=== PATIENT | female | born 1940 | race Caucasian/White ===

== ENCOUNTER 2021-10-19 08:28 | Outpatient (CLI) | payer MEDICARE, SELFPAY ==
[2021-10-19 08:56] LABS: Basophils Absolute Auto 0.1 K/mm3 (0.0-0.1); Basophils Percent Auto 0.6 % (0.2-1.2); Eosinophils Absolute Auto 0.2 K/mm3 (0-0.3); Eosinophils Percent Auto 1.9 % (0-4.4); Hematocrit 41.2 % (37.0-47.0); Hemoglobin 13.5 g/dL (12.0-15.0); Immature Granulocyte Absolute 0.02 K/mm3 (0.00-0.031); Immature Granulocyte Percent A 0.3 % (0-0.5); Lymphocytes Absolute Auto 1.53 K/mm3 (0.9-3.2); Lymphocytes Percent Auto 19.7 % (18.3-44.2); Mean Corpuscular HGB Conc 32.8 g/dl (32-36); Mean Corpuscular Volume 91.6 fl (80-100); Mean Platelet Volume 9.8 fl (7.4-10.4); Monocytes Absolute Auto 0.7 K/mm3 (0.1-0.6); Monocytes Percent Auto 8.9 % (2.6-8.5); Neutrophils Absolute Auto 5.3 K/mm3 (1.3-6.7); Neutrophils Percent Auto 68.6 % (45.5-73.1); Platelet Count Result 171 k/mm3 (150-375); Red Cell Distribution Width 14.7 % (11.5-14.5); White Blood Count 7.8 K/mm3 (4.5-10.0)
[2021-10-19 09:07] LABS: Alanine Aminotransferase 20 U/L (4-35); Albumin Level 4.2 g/dL (3.5-5.1); Alkaline Phosphatase 61 U/L (38-126); Anion Gap 8 mmol/L (8-16); Aspartate Amino Transferase 34 U/L (14-36); Bilirubin,Total 0.9 mg/dL (0.2-1.3); Blood Urea Nitrogen 17 mg/dL (7-17); Calcium 9.7 mg/dL (8.4-10.2); Carbon Dioxide 32 mmol/L (22-30); Chloride 97 mmol/L (98-107); Cholesterol 149 mg/dL (0-200); Estimated Glomerular Filt Rate > 60; Glucose 99 mg/dL (65-110); HDL Direct 61 mg/dL; Potassium 3.7 mmol/L (3.4-5.0); Sodium 137 mmol/L (137-145); Triglycerides 68 mg/dL (<150)
[2021-10-19 09:19] LABS: LDL Cholesterol Direct 62 mg/dL
[2021-10-19 09:26] LABS: Free T4 Free Thyroxine 1.42 ng/mL (0.78-2.19)
[2021-10-19 09:39] LABS: Total Triiodothyronine (T3) 0.95 NG/ML (0.97-1.69)
[2021-10-23 08:14] LABS: Vitamin D 1,25 (OH)2 Total 58 pg/mL (18-72); Vitamin D2 1,25 (OH)2 41 pg/mL; Vitamin D3 1,25 (OH)2 17 pg/mL
== END 2021-10-19 08:29 | disposition home or self-care (01) ==
LOC: ANHLAB 08:30
PROVIDERS: PCP Family Medicine; Visit Provider Family Medicine
DX: E55.9 Vitamin D deficiency, unspecified (principal); E03.9 Hypothyroidism, unspecified; I10 Essential (primary) hypertension; E78.2 Mixed hyperlipidemia
CPT/HCPCS: 36415; 80053; 80061; 82652; 84439; 84443; 84480; 85025

== ENCOUNTER 2022-10-12 07:35 | Outpatient (CLI) | payer MEDICARE, SELFPAY ==
[2022-10-12 08:49] LABS: Basophils Percent Auto 0.5 % (0.2-1.2); Eosinophils Absolute Auto 0.1 K/mm3 (0-0.3); Eosinophils Percent Auto 1.7 % (0-4.4); Hematocrit 41.2 % (37.0-47.0); Hemoglobin 13.3 g/dL (12.0-15.0); Immature Granulocyte Absolute 0.02 K/mm3 (0.00-0.031); Immature Granulocyte Percent A 0.2 % (0-0.5); Lymphocytes Percent Auto 20.4 % (18.3-44.2); Mean Corpuscular HGB Conc 32.3 g/dl (32-36); Mean Corpuscular Hemoglobin 28.7 pg (26-34); Mean Corpuscular Volume 88.8 fl (80-100); Monocytes Absolute Auto 0.7 K/mm3 (0.1-0.6); Monocytes Percent Auto 8.1 % (2.6-8.5); Neutrophils Absolute Auto 5.8 K/mm3 (1.3-6.7); Neutrophils Percent Auto 69.1 % (45.5-73.1); Platelet Count Result 266 k/mm3 (150-375); Red Blood Count 4.64 M/mm3 (4.2-5.4); Red Cell Distribution Width 14.6 % (11.5-14.5); White Blood Count 8.3 K/mm3 (4.5-10.0)
[2022-10-12 09:10] LABS: Alanine Aminotransferase 27 U/L (6-35); Albumin Level 4.2 g/dL (3.5-5.1); Alkaline Phosphatase 69 U/L (38-126); Anion Gap 4 mmol/L (8-16); Aspartate Amino Transferase 37 U/L (14-36); Bilirubin,Total 0.8 mg/dL (0.2-1.3); Blood Urea Nitrogen 14 mg/dL (7-17); Calcium 9.1 mg/dL (8.4-10.2); Carbon Dioxide 32 mmol/L (22-30); Chloride 97 mmol/L (98-107); Estimated Glomerular Filt Rate > 60; Glucose 92 mg/dL (65-110); Potassium 3.7 mmol/L (3.4-5.0); Sodium 133 mmol/L (137-145)
== END 2022-10-12 07:36 | disposition home or self-care (01) ==
PROVIDERS: PCP Family Medicine; Visit Provider Family Medicine
DX: E03.9 Hypothyroidism, unspecified (principal); I10 Essential (primary) hypertension; R60.0 Localized edema
CPT/HCPCS: 36415; 80053; 84443; 85025

== ENCOUNTER 2022-10-27 18:26 | Inpatient (IN) | payer MEDICARE, SELFPAY ==
[2022-10-27] VITALS (21 sets, daily range): BP systolic 137–198; BP diastolic 63–157; PULSE 97–106; RESP 16; TEMP 36.8–37.2; O2SAT 77–100
--- NOTE | ~2022-10-27 | US_ITS ---
EXAMINATION: US renal BI DATE: 10/28/2022 14:11 INDICATION: Urinary retention. TECHNIQUE: Multiple ultrasound grayscale images of the kidneys were obtained. COMPARISON: CT abdomen and pelvis 10/27/2022 FINDINGS: The right kidney measures 9.3 x 4.4 x 5.0 cm. The left kidney measures 9.7 x 5.1 x 5.6 cm. The kidney s demonstrate normal parenchymal echogenicity. There is a 2.0 cm cyst in right kidney. There is no hy dronephrosis. The bladder is decompressed by a Solis catheter. IMPRESSION: 1. Normal kidney sizes. No hydronephrosis. Reviewed, dictated and finalized at location A. [employer]
--- NOTE | ~2022-10-27 | CT_ITS ---
EXAMINATION: CT abdomen pelvis w con DATE: 10/27/2022 20:05 INDICATION: lower abdominal pain, fever TECHNIQUE: Computed tomography (CT) of the abdomen and pelvis was performed with 100 mL Omnipaque-350 intravenous contrast. Automated exposure control and iterative reconstruction technique were employe d. The dose-length product was 255.65 mGy-cm. COMPARISON: None. FINDINGS: Lower thorax: Scattered bilateral tree-in-bud opacities. Aortic valve, mitral, and coronary artery ca lcifications Liver: Normal. Biliary/Gallbladder: Gallbladder is normal. No bile duct dilation. Pancreas: No mass or duct dilation. Spleen: Normal. Adrenals:No mass. Kidneys: Simple right lower pole cyst. Mild bilateral ureterectasis and urothelial enhancement. Nonob structing bilateral calculi. Uniform cortical enhancement. Mild bilateral perinephric stranding. GI tract: Distal esophageal and gastric wall edema. No small or large bowel dilation. Normal appendix . Mesentery/Peritoneum: No ascites, mass, or free air. Retroperitoneum: No mass. Atherosclerotic abdominal aortic and/or arterial calcifications. Pelvis: Urinary bladder wall thickening, hyperemia, and surrounding inflammatory change. 6 mm calcifi cation in the bladder lumen, adjacent to the right UVJ. Soft Tissues: Uncomplicated small fat-containing umbilical hernia. Bones: No acute osseous finding. IMPRESSION: Esophagitis/gastritis. Cystitis, likely with bilateral ascending infection. 6 mm calcification in the urinary bladder may represent a bladder calculus or recently passed nephrolith. Reviewed, dictated and finalized at location K. [facility] IMPRESSION: Esophagitis/gastritis. Cystitis, likely with bilateral ascending infection. 6 m m calcification in the urinary bladder may represent a bladder calculus or rece ntly passed nephrolith.
--- NOTE | 2022-10-27 18:55 | ED.FEMALEGU ---
HPI - Female Genitourinary General Chief complaint: Urogenital-Female <Dunia Magana PA-C - Last Filed: 10/27/22 22:03> Stated complaint: decreased urinary output <Dunia Magana PA-C - Last Filed: 10/27/22 22:03> Time Seen by Provider: 10/27/22 18:41 <Dunia Magana PA-C - Last Filed: 10/27/22 22:03> History of Present Illness HPI Narrative: Patient is a 82-year-old female here for evaluation of urinary retention today. Patient states that today she has been unable to urinate which is unusual for her. Typically has overactive bladder but does not take any medicines for this. She feels the urge to go in addition to some suprapubic fullness. Yesterday she believes she had some dysuria. Denies any acute back pain, chills, nausea, vomiting, systemic symptoms. <Dunia Magana PA-C - Last Filed: 10/27/22 22:03> Related Data Allergies/Adverse reactions: Allergies Allergy/AdvReac Type Severity Reaction Status Date / Time No Known Allergies Allergy Unknown Verified 10/27/22 18:39 <Dunia Magana PA-C - Last Filed: 10/27/22 22:03> Review of Systems Review of Systems: Gen: Denies fevers or chills Eyes: Denies eye pain or visual change ENT: Denies congestion Respiratory: Denies shortness of breath or cough CV: Denies chest pain or palpitations GI: Denies abdominal pain nausea, emesis or diarrhea reports suprapubic fullness and retention Musculoskeletal: Denies back pain or muscle pain Neuro: Denies numbness, tingling, weakness or focal weakness Skin: Denies rash Except as documented, all other systems reviewed and negative <Dunia Magana PA-C - Last Filed: 10/27/22 22:03> PMFSH Past Medical History Medical History: Medical History Age related osteoporosis Aortic stenosis, mild Arthritis Asymptomatic stenosis of both vertebral arteries Benign essential HTN Bilateral carotid artery stenosis Breast CA Carotid artery stenosis Colon cancer screening CVA, old, facial weakness Essential (primary) hypertension 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 abnormality Glaucoma Hyperlipidemia Hyperlipidemia type III Hypothyroidism (acquired) Hypothyroidism, unspecified Lymphedema, not elsewhere classified Macular degeneration Personal history of malignant neoplasm of breast Postmenopausal Presbycusis of both ears Vitamin D deficiency <Dunia Magana PA-C - Last Filed: 10/27/22 22:03> Surgical History Surgical History: Surgical History H/O left mastectomy Status post left mastectomy <Dunia Magana PA-C - Last Filed: 10/27/22 22:03> Family History Family History: Family History Other Hypertension <Dunia Magana PA-C - Last Filed: 10/27/22 22:03> Social History Social History: Social History (Updated 09/21/22 @ 07:45 by Katelynn Pierce) Social History: Smoking status: Never smoker Second hand tobacco smoke exposure: No Alcohol intake: never Substance use: never Substance use type: does not use Living arrangements: alone Occupation/Education: retired Gender identity (if verbalized by the patient): Female Sexual Orientation (if Verbalized by the Patient): Straight or Heterosexual <Dunia Magana PA-C - Last Filed: 10/27/22 22:03> Exam Narrative: APPEARANCE: Well appearing, no pain in distress, well-nourished. Head: Normocephalic and atraumatic. EYES: PERRLA/EOMI, conjunctivae clear NOSE: No nasal drainage EARS: External ear normal in appearance THROAT: Oropharynx is clear. Mucous membranes are moist. NECK: Supple. No adenopathy, no masses. RESPIRATORY: Airway patent, respirations nonlabored. Clear to auscultation bilaterally, no rales, rhonchi, wheezing. CARDIOVASCULAR: Re
[2022-10-27 19:31] LABS: Appearance Urine Clear (Clear); Bilirubin Urine Negative (Negative); Blood Urine 1+ (Negative); Color Urine Yellow (Yellow); Glucose Urine UA Negative (Negative); Ketones Urine Negative (Negative); Leukocyte Esterase Ur Negative LEU/UL (Negative); Nitrate Urine Negative (Negative); Protein Urine Negative (Negative); Specific Grav Ur 1.015 (1.001-1.035); Urobilinogen Urine 0.2 mg/dL (<2.0)
[2022-10-27 19:42] LABS: WBC Urine 0-3 /hpf
[2022-10-27 19:42] LABS: Basophils Percent Auto 0.4 % (0.2-1.2); Eosinophils Absolute Auto 0.1 K/mm3 (0-0.3); Eosinophils Percent Auto 1.1 % (0-4.4); Hematocrit 41.8 % (37.0-47.0); Hemoglobin 13.7 g/dL (12.0-15.0); Immature Granulocyte Absolute 0.07 K/mm3 (0.00-0.031); Immature Granulocyte Percent A 0.7 % (0-0.5); Lymphocytes Absolute Auto 1.77 K/mm3 (0.9-3.2); Lymphocytes Percent Auto 16.8 % (18.3-44.2); Mean Corpuscular HGB Conc 32.8 g/dl (32-36); Mean Corpuscular Hemoglobin 28.7 pg (26-34); Mean Corpuscular Volume 87.6 fl (80-100); Mean Platelet Volume 10.5 fl (7.4-10.4); Monocytes Absolute Auto 0.8 K/mm3 (0.1-0.6); Monocytes Percent Auto 7.9 % (2.6-8.5); Neutrophils Absolute Auto 7.7 K/mm3 (1.3-6.7); Neutrophils Percent Auto 73.1 % (45.5-73.1); Platelet Count Result 176 k/mm3 (150-375); Red Blood Count 4.77 M/mm3 (4.2-5.4); White Blood Count 10.6 K/mm3 (4.5-10.0)
[2022-10-27 19:43] LABS: Add Urine Microscopic? YES
[2022-10-27 19:51] LABS: Alanine Aminotransferase 25 U/L (6-35); Albumin Level 4.6 g/dL (3.5-5.1); Alkaline Phosphatase 79 U/L (38-126); Anion Gap 6 mmol/L (8-16); Aspartate Amino Transferase 35 U/L (14-36); Bilirubin,Total 0.5 mg/dL (0.2-1.3); Blood Urea Nitrogen 12 mg/dL (7-17); Calcium 9.5 mg/dL (8.4-10.2); Carbon Dioxide 30 mmol/L (22-30); Chloride 96 mmol/L (98-107); Estimated CRCL calculation 51 ml/min; Estimated Glomerular Filt Rate > 60; Glucose 118 mg/dL (65-110); Potassium 3.5 mmol/L (3.4-5.0); Sodium 132 mmol/L (137-145)
--- NOTE | 2022-10-27 20:35 | PM.IMHP ---
H&P: HPI History of Present Illness Date/Time: 10/27/22 20:35 Chief Complaint: burning with urination Narrative: this is an 82-year-old female with past medical history significant for osteoporosis, hypertension, dyslipidemia, macular degeneration, hypothyroidism, aortic stenosis. patient was brought to the emergency room for evaluation due to suprapubic tenderness, urgency, frequency, decreased urine output. in emergency room patient was found to have urinary retention and had 1200 cc out by straight catheterization. Patient denies any fevers, rigors, chills, nausea, vomiting, diarrhea. Feels constant urge. Preliminary workup was significant for a urinalysis showed numerous rbc's present, patient tested negative for influenza type A, type B and COVID-19 CT of abdomen and pelvis was reported as: FINDINGS: Lower thorax: Scattered bilateral tree-in-bud opacities. Aortic valve, mitral, and coronary artery calcifications Liver: Normal.? Biliary/Gallbladder: Gallbladder is normal. No bile duct dilation. Pancreas: No mass or duct dilation. Spleen: Normal. Adrenals:No mass. Kidneys: Simple right lower pole cyst. Mild bilateral ureterectasis and urothelial enhancement. Nonobstructing bilateral calculi. Uniform cortical enhancement. Mild bilateral perinephric stranding. GI tract: Distal esophageal and gastric wall edema. No small or large bowel dilation. Normal appendix. Mesentery/Peritoneum: No ascites, mass, or free air. Retroperitoneum: No mass. Atherosclerotic abdominal aortic and/or arterial calcifications. Pelvis: Urinary bladder wall thickening, hyperemia, and surrounding inflammatory change. 6 mm calcification in the bladder lumen, adjacent to the right UVJ. Soft Tissues: Uncomplicated small fat-containing umbilical hernia. Bones:? No acute osseous finding. IMPRESSION: Esophagitis/gastritis. Cystitis, likely with bilateral ascending infection. 6 mm calcification in the urinary bladder may represent a bladder calculus or recently passed nephrolith. Review of Systems Review of Systems: urinary frequency, urgency, suprapubic tenderness. Constitutional: Constitutional: Denies chills, Denies fever(s), Denies frequent falls, Denies night sweats and Denies poor appetite Eyes: Eyes: Denies change in vision ENT: Denies dysphagia, Denies vertigo, Denies dizziness and Denies odynophagia Cardiovascular: Cardiovascular: Denies chest pain Respiratory: Respiratory: Denies chest congestion and Denies cough Gastrointestinal: Gastrointestinal: Reports abdominal pain ( Suprapubic tenderness), Denies dyspepsia, Denies heartburn, Denies diarrhea, Denies nausea and Denies vomiting Genitourinary: Genitourinary: Reports dysuria, Reports urinary hesitancy, Reports urinary urgency and Reports other ( suprapubic tenderness) Musculoskeletal: Musculoskeletal: Denies arthralgias and Denies joint swelling Integumentary/Breasts: Skin/Breast: Denies rash Neurologic: Denies focal weakness and Denies Sensory deficit (Neuro) Psychiatric: Psychiatric: Reports no additional psychiatric complaints and Reports as per HPI Endocrine: Endocrine: Denies cold intolerance, Denies flushing, Denies heat intolerance, Denies polyphagia, Denies polydipsia and Denies palpitations Hematologic/Lymphatic: Hematologic/Lymphatic: Reports no additional hematologic/lymphatic complaints and Reports as per HPI Allergic/Immunologic: Allergic/Immunologic: Reports no additional allergic/immunologic complaints and Reports as per HPI PMFSH Past Medical History Medical History (Updated 10/28/22 @ 00:44 by Raymon Mancilla MD) Age related osteoporosis Aortic stenosis, mild Arthritis Asymptomatic stenosis of both vertebral arteries Benign essential HTN Bilateral carotid artery stenosis Breast CA Carotid artery stenosis Colon cancer screening CVA, old, facial weakness Essential (primary) hypertension 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 abnormality Glaucoma Hyperli
[2022-10-27] MEDS: FAMOTIDINE 20 MG/2 ML VIAL IV PUSH (20:39)
[2022-10-27] MEDS: SODIUM CHLORIDE 0.9% IV 1,000 ML 999 ML IV CONT (20:39)
[2022-10-27 21:10] LABS: Influenza A QL RT-PCR Negative (Negative); Influenza B QL RT-PCR Negative (Negative); SARS-CoV-2 RNA PCR Negative
--- NOTE | 2022-10-27 22:38 | PC.NURSE ---
Patient arrived on 3 Med-Surg at 22:15
[2022-10-27] MEDS: hydrALAZINE HCL 20 MG/ML VIAL 10 MG IV PUSH (23:00)
[2022-10-28] MEDS: ACETAMINOPHEN 500 MG TABLET 1000 MG PO (03:15)
[2022-10-28 03:27] VITALS: BMI 24.5
[2022-10-28 05:08] VITALS: BP 152/71; PULSE 98; RESP 16; TEMP 36.9; O2SAT 94
--- NOTE | 2022-10-28 08:03 | PM.IMPN ---
Progress Note: A&P Assessment and Plan (1) Urinary tract infection: Code(s): N39.0 - Urinary tract infection, site not specified Status: Acute Assessment and Plan: Do not suspect infection, continue Rocephin for now as prophylaxis due to unknown etiology of urinary retention (2) Urinary retention: Code(s): R33.9 - Retention of urine, unspecified Status: Acute Assessment and Plan: Continue Solis for now, urology consult pending Follow-up renal ultrasound (3) Benign essential HTN: Code(s): I10 - Essential (primary) hypertension Status: Acute Assessment and Plan: Mildly elevated, blood pressures reviewed today, monitor Continue Norvasc (4) Macular degeneration: Qualifiers: 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 Eye laterality: bilateral Macular degeneration type: exudative age-related Qualified Code(s): H35.3231 - Exudative age-related macular degeneration, bilateral, with active choroidal neovascularization Code(s): H35.30 - Unspecified macular degeneration Status: Acute Assessment and Plan: fall precautions Continue eyedrops (5) CVA, old, facial weakness: Code(s): I69.392 - Facial weakness following cerebral infarction Status: Acute Assessment and Plan: stable (6) Bilateral carotid artery stenosis: Code(s): I65.23 - Occlusion and stenosis of bilateral carotid arteries Status: Acute Assessment and Plan: cont aspirin + plavix, not interested in CEA, not sure if she is a candidate (7) Gastritis: Code(s): K29.70 - Gastritis, unspecified, without bleeding Status: Acute Assessment and Plan: Start PPI, check FOBT, monitor for symptoms (8) Hypothyroidism (acquired): Code(s): E03.9 - Hypothyroidism, unspecified Status: Acute Assessment and Plan: TFTs stable, continue home levothyroxine (9) Hyperlipidemia: Qualifiers: Hyperlipidemia type: mixed hyperlipidemia Qualified Code(s): E78.2 - Mixed hyperlipidemia Code(s): E78.5 - Hyperlipidemia, unspecified Status: Acute Assessment and Plan: Check fasting lipid panel (10) Hyponatremia: Code(s): E87.1 - Hypo-osmolality and hyponatremia Status: Acute Assessment and Plan: Mild, monitor Plan DVT prophylaxis with SCDs GI prophylaxis with PPI Code status full code Subjective Date/time seen: 02/23/23 08:03 Interval history: No overnight events noted. No chest pain or shortness of breath. No nausea, vomiting or diarrhea. No fevers or chills. Patient states she feels much better than when she came in. No abdominal pain, no dysuria. Review of Systems Review of Systems: 12 point review of systems was assessed and was negative except as noted in the HPI Exam Narrative: General: No acute distress, alert and oriented per baseline HEENT: Atraumatic, normocephalic, mucous membranes moist CV: Regular rate and rhythm, S1, S2 Lungs: Clear to auscultation bilaterally, no rales or crackles noted, no wheezes, good air entry Abdomen: Soft, nontender, nondistended Extremities: Normal to inspection Skin: No rashes noted, no lesions or wounds seen Psych: Euthymic, normal affect Objective Data Vital Signs Vital Signs: Vital Signs - 24 hr 10/27/22 18:35 10/27/22 18:46 10/27/22 18:47 Temperature 99 F Pulse Rate 97 Respiratory Rate 16 Blood Pressure 174/102 H 198/97 H Pulse Oximetry 100 100 100 Oxygen Delivery Room Air 10/27/22 19:00 10/27/22 19:01 10/27/22 19:15 Temperature Pulse Rate Respiratory Rate Blood Pressure 192/87 H Pulse Oximetry 99 100 100 Oxygen Delivery 10/27/22 19:16 10/27/22 19:30 10/27/22 19:31 Temperature Pulse Rate Respiratory Rate Blood Pressure 192/97 H 145/63 H Pulse Oximetry 100 77 L 100
[2022-10-28] MEDS: CLOPIDOGREL BISULFATE 75 MG TABLET BY MOUTH (08:04)
[2022-10-28] MEDS: DORZOLAMIDE HCL 2% OPHTH DROPS 1 DROP LEFT EYE ×2 (08:04→16:27)
[2022-10-28] MEDS: TIMOLOL MALEATE 0.5% OP SOLN 5 ML BOTTLE 1 DROP LEFT EYE ×2 (08:04→16:27)
[2022-10-28] MEDS: LEVOTHYROXINE SODIUM 75 MCG TABLET PO (08:04)
[2022-10-28] MEDS: amLODIPine BESYLATE 5 MG TABLET PO (08:04)
[2022-10-28] MEDS: TAMSULOSIN HCL 0.4 MG CAPSULE PO (08:04)
[2022-10-28 14:00] VITALS: BP 107/58; PULSE 95; RESP 19; TEMP 36.6; O2SAT 100
[2022-10-28] MEDS: PANTOPRAZOLE SODIUM IV 40 MG VIAL IV PUSH (14:27)
--- NOTE | 2022-10-28 17:10 | WPDURCON ---
Assessment and Plan Assessment and plan (1) Urinary retention: Code(s): R33.9 - Retention of urine, unspecified Status: Acute Assessment and Plan: Keep leon in for 7-10 days then f/u in the office for a voiding trial. Call for an appointment. I suspect possible atonic bladder, however she will need a urodynamic study to be certain. Continue IV antibiotics. If no improvement in symptoms would recommend a urine culture. SHIRLEY shows no hydronephrosis. Therefore no intervention needed. (2) Urinary tract infection: Code(s): N39.0 - Urinary tract infection, site not specified Status: Acute Urology Consult Note HPI Date Seen: 10/28/22 Time Seen: 17:10 Requesting Physician: Raymon Mancilla MD Primary Care Provider: Leanne Todd MD Consult Narrative Reason for consult: Retention Narrative: Marcus Ventura is a 82 year old female who went to the ER on 10/27/22 for difficulty with urination when she normally has overactive bladder. She had a leon placed and had 1200cc of urine noted on return in the ER. She has a WBC of 10.6, creatinine of 0.60, a UA that isn't suggestive of a UTI although she did complain of some dysuria. A CT scan was done yesterday showing cystitis with bilateral ascending infection and a 6mm bladder stone that likely recently passed, but no hydronephrosis. A SHIRLEY was done on 10/28/22 that shows no hydronephrosis. Ceftriaxone was started as well as Tamsulosin but no urine culture was sent to confirm infection. The patient states that she has never struggled to empty her bladder prior to his and has not been on medications to treat her OAB. Review of Systems Cardiovascular: Cardiovascular: Denies chest pain Respiratory: Respiratory: Reports no additional respiratory complaints Gastrointestinal: Gastrointestinal: Denies abdominal pain, Denies nausea and Denies vomiting Genitourinary: Genitourinary: Denies hematuria, Reports nocturia, Denies dysuria, Denies pelvic pain, Denies flank pain, Reports urinary hesitancy and Reports urinary urgency PMFSH Past Medical History Medical History Age related osteoporosis Aortic stenosis, mild Arthritis Asymptomatic stenosis of both vertebral arteries Benign essential HTN Bilateral carotid artery stenosis Breast CA Carotid artery stenosis Colon cancer screening CVA, old, facial weakness Essential (primary) hypertension 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 abnormality Glaucoma Hyperlipidemia Hyperlipidemia type III Hypothyroidism (acquired) Hypothyroidism, unspecified Lymphedema, not elsewhere classified Macular degeneration Personal history of malignant neoplasm of breast Postmenopausal Presbycusis of both ears Vitamin D deficiency Surgical History Surgical History H/O left mastectomy Status post left mastectomy Family History Family History Other Hypertension Social History Social History Social History: Smoking status: Never smoker Second hand tobacco smoke exposure: No Alcohol intake: never Substance use: never Substance use type: does not use Lack of Transportation: No Lack of Food: Never True Current Housing: I Have Housing Concerned About Future Housing: No Difficulty Paying Gas/Electric Bills: No Difficulty Paying for Meds: No Currently Unemployed: No Education: High School Diploma/GED Difficulty w/ Childcare or Family Care: No Living arrangements: alone Occupation/Education: retired Gender identity (if verbalized by the patient): Female Sexual Orientation (if Verbalized by the Patient): Straight or Heterosexual Spiritual care concerns: No Meds Home Medications and Allergies Home Medications Medication Instruction
[2022-10-28] MEDS: ATORVASTATIN 10 MG TABLET BY MOUTH (20:25)
[2022-10-28 20:45] VITALS: BP 117/68; PULSE 88; RESP 16; TEMP 36.6; O2SAT 97
--- NOTE | 2022-10-29 | ECHO_ITS ---
Patient Info Name: Marcus Ventura Age: 82 years : 1940 Gender: Female Ht: 63 in Wt: 138 lbs BSA: 1.68 m2 HR: 88 bpm BP: 117 / 68 mmHg Heart Rhythm: Sinus Rhythm Technical Quality: Fair Exam Date: 10/29/2022 7:40 AM Exam Location: [facility] Patient Status: Inpatient Admit Date: 10/28/2022 Staff Ordering Physician: Stacey Caal DO [employer] Manager: Anju Reilly RDCS Attending Provider: Raymon Mancilla MD Referring Physician: Ten CABRERA; Exam Type: CA echo doppler color flow Study Info Indications R01.1 - Cardiac murmur, unspecified Complete two-dimensional, color flow and Doppler transthoracic echocardiogram is performed. Summary 1. Complete two-dimensional, color flow and Doppler transthoracic echocardiogram is performed. 2. Left ventricular chamber dimension is normal. 3. Left ventricular systolic function is hyperdynamic, estimated at >70%. 4. The left ventricular diastolic function is grade I diastolic dysfunction. 5. E/e' 24 is elevated. 6. Left atrial chamber dimension is mildly enlarged. 7. There is moderate aortic valve sclerosis. 8. The mitral valve has mildly thickened leaflets and severely calcified annulus. 9. There is mild mitral valve regurgitation. 10. There is trace tricuspid valve regurgitation. 11. No pulmonary hypertension, estimated pulmonary arterial systolic pressure is 32 mmHg. 12. There is mild pulmonic regurgitation. Left Ventricle E/e' 24 is elevated. Left ventricular chamber dimension is normal. Left ventricular systolic function is hyperdynamic, estimated at >70%. The left ventricular diastolic function is grade I diastolic dysfunction. Right Ventricle Right ventricular systolic function is normal and with normal TAPSE 2.1 cm. Right ventricular chamber dimension is normal. Left Atria Left atrial chamber dimension is mildly enlarged. Right Atria Right atrial chamber dimension is normal. Aortic Valve The aortic valve is trileaflet. There is moderate aortic valve sclerosis. There is no aortic valve stenosis. There is no aortic valve regurgitation. Pulmonic Valve There is mild pulmonic regurgitation. Mitral Valve The mitral valve has mildly thickened leaflets and severely calcified annulus. There is no mitral valve stenosis. There is mild mitral valve regurgitation. Tricuspid Valve There is trace tricuspid valve regurgitation. No pulmonary hypertension, estimated pulmonary arterial systolic pressure is 32 mmHg. Pericardium/Pleural There is no pericardial effusion. Inferior Vena Cava Normal inferior vena cava with >50% collapse upon inspiration consistent with normal right atrial pressure, 5 mmHg. Aorta The aortic root size at the sinus of Valsalva is normal. Left Ventricular Outflow Tract Name Value Normal LVOT 2D LVOT Diameter 1.9 cm LVOT Doppler LVOT Peak Gradient 12 mmHg LVOT Mean Gradient 6 mmHg LVOT VTI 33 cm LVOT VTI/AV VTI Ratio 0.8 LVOT Stroke Volume
[2022-10-29] MEDS: LEVOTHYROXINE SODIUM 75 MCG TABLET PO (05:45)
[2022-10-29 06:00] VITALS: BP 105/68; PULSE 105; RESP 16; TEMP 36.8; O2SAT 97
[2022-10-29 06:11] LABS: Alanine Aminotransferase 25 U/L (6-35); Albumin Level 3.5 g/dL (3.5-5.1); Alkaline Phosphatase 50 U/L (38-126); Anion Gap 4 mmol/L (8-16); Aspartate Amino Transferase 57 U/L (14-36); Basophils Percent Auto 0.2 % (0.2-1.2); Bilirubin,Total 0.7 mg/dL (0.2-1.3); Blood Urea Nitrogen 15 mg/dL (7-17); Calcium 8.4 mg/dL (8.4-10.2); Carbon Dioxide 30 mmol/L (22-30); Chloride 103 mmol/L (98-107); Cholesterol 127 mg/dL (0-200); Eosinophils Percent Auto 0.3 % (0-4.4); Estimated CRCL calculation 39 ml/min; Estimated Glomerular Filt Rate > 60; Glucose 92 mg/dL (65-110); HDL Direct 55 mg/dL; Hematocrit 38.9 % (37.0-47.0); Hemoglobin 12.8 g/dL (12.0-15.0); Immature Granulocyte Absolute 0.05 K/mm3 (0.00-0.031); Immature Granulocyte Percent A 0.4 % (0-0.5); Lymphocytes Absolute Auto 2.07 K/mm3 (0.9-3.2); Mean Corpuscular HGB Conc 32.9 g/dl (32-36); Mean Corpuscular Hemoglobin 29.2 pg (26-34); Mean Corpuscular Volume 88.8 fl (80-100); Mean Platelet Volume 10.5 fl (7.4-10.4); Monocytes Absolute Auto 1.1 K/mm3 (0.1-0.6); Monocytes Percent Auto 9.8 % (2.6-8.5); Neutrophils Absolute Auto 8.2 K/mm3 (1.3-6.7); Neutrophils Percent Auto 71.3 % (45.5-73.1); Platelet Count Result 160 k/mm3 (150-375); Potassium 3.5 mmol/L (3.4-5.0); Red Blood Count 4.38 M/mm3 (4.2-5.4); Red Cell Distribution Width 15.8 % (11.5-14.5); Sodium 137 mmol/L (137-145); Triglycerides 70 mg/dL (<150); White Blood Count 11.5 K/mm3 (4.5-10.0)
[2022-10-29 06:22] LABS: LDL Cholesterol Direct 47 mg/dL
[2022-10-29 08:40] VITALS: BP 112/75
[2022-10-29] MEDS: PANTOPRAZOLE SODIUM IV 40 MG VIAL IV PUSH (08:41)
[2022-10-29] MEDS: amLODIPine BESYLATE 5 MG TABLET PO (08:41)
[2022-10-29] MEDS: DORZOLAMIDE HCL 2% OPHTH DROPS 1 DROP LEFT EYE (08:42)
[2022-10-29] MEDS: TAMSULOSIN HCL 0.4 MG CAPSULE PO (08:42)
[2022-10-29] MEDS: CLOPIDOGREL BISULFATE 75 MG TABLET BY MOUTH (08:42)
[2022-10-29] MEDS: TIMOLOL MALEATE 0.5% OP SOLN 5 ML BOTTLE 1 DROP LEFT EYE (08:42)
--- NOTE | 2022-10-29 10:05 | PM.IMPN ---
Progress Note: A&P Assessment and Plan (1) Urinary tract infection: Code(s): N39.0 - Urinary tract infection, site not specified Status: Acute Assessment and Plan: Do not suspect infection, continue Rocephin for now as prophylaxis due to unknown etiology of urinary retention (2) Urinary retention: Code(s): R33.9 - Retention of urine, unspecified Status: Acute Assessment and Plan: Continue Solis for now, urology consult pending Follow-up renal ultrasound (3) Benign essential HTN: Code(s): I10 - Essential (primary) hypertension Status: Acute Assessment and Plan: Mildly elevated, blood pressures reviewed today, monitor Continue Norvasc (4) Macular degeneration: Qualifiers: Macular degeneration type: exudative age-related 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 Eye laterality: bilateral Qualified Code(s): H35.3231 - Exudative age-related macular degeneration, bilateral, with active choroidal neovascularization Code(s): H35.30 - Unspecified macular degeneration Status: Acute Assessment and Plan: fall precautions Continue eyedrops (5) CVA, old, facial weakness: Code(s): I69.392 - Facial weakness following cerebral infarction Status: Acute Assessment and Plan: stable (6) Bilateral carotid artery stenosis: Code(s): I65.23 - Occlusion and stenosis of bilateral carotid arteries Status: Acute Assessment and Plan: cont aspirin + plavix, not interested in CEA, not sure if she is a candidate (7) Gastritis: Code(s): K29.70 - Gastritis, unspecified, without bleeding Status: Acute Assessment and Plan: Start PPI, check FOBT, monitor for symptoms (8) Hypothyroidism (acquired): Code(s): E03.9 - Hypothyroidism, unspecified Status: Acute Assessment and Plan: TFTs stable, continue home levothyroxine (9) Hyperlipidemia: Qualifiers: Hyperlipidemia type: mixed hyperlipidemia Qualified Code(s): E78.2 - Mixed hyperlipidemia Code(s): E78.5 - Hyperlipidemia, unspecified Status: Acute Assessment and Plan: Check fasting lipid panel (10) Hyponatremia: Code(s): E87.1 - Hypo-osmolality and hyponatremia Status: Acute Assessment and Plan: Mild, monitor Plan DVT prophylaxis with SCDs GI prophylaxis with PPI Code status full code Subjective Date/time seen: 02/24/23 10:05 Interval history: No overnight events noted. No chest pain or shortness of breath. No nausea, vomiting or diarrhea. No fevers or chills. Patient states she feels much better than when she came in. No abdominal pain, no dysuria. Exam Narrative: General: No acute distress, alert and oriented per baseline HEENT: Atraumatic, normocephalic, mucous membranes moist CV: Regular rate and rhythm, S1, S2 Lungs: Clear to auscultation bilaterally, no rales or crackles noted, no wheezes, good air entry Abdomen: Soft, nontender, nondistended Extremities: Normal to inspection Skin: No rashes noted, no lesions or wounds seen Psych: Euthymic, normal affect Objective Data Vital Signs Vital Signs: Vital Signs - 24 hr 10/28/22 14:00 10/28/22 20:45 10/28/22 20:00 Temperature 97.9 F 97.8 F Pulse Rate 95 88 Respiratory Rate 19 16 Blood Pressure 107/58 L 117/68 Pulse Oximetry 100 97 Oxygen Delivery Room Air 10/29/22 06:00 10/29/22 08:40 Temperature 98.2 F Pulse Rate 105 H Respiratory Rate 16 Blood Pressure 105/68 112/75 Pulse Oximetry 97 Oxygen Delivery Intake/Output Intake/Output: Intake & Output 10/26/22 10/27/22 10/28/22 10/29/22 23:59 23:59 23:59 23:59 Intake Total 1050 1720 240 Output Total 1100 1760 500 Balance -50 -40 -260 Meds/Results Medications: Active Medications Generic Name Dose Route Start Last Admin Trade
--- NOTE | 2022-10-29 10:07 | PM.DS ---
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 Eye laterality: bilateral Macular degeneration type: exudative age-related Qualified Code(s): H35.3231 - Exudative age-related macular degeneration, bilateral, with active choroidal neovascularization Code(s): H35.30 - Unspecified macular degeneration Status: Acute (5) CVA, old, facial weakness: Code(s): I69.392 - Facial weakness following cerebral infarction Status: Acute (6) Bilateral carotid artery stenosis: Code(s): I65.23 - Occlusion and stenosis of bilateral carotid arteries Status: Acute (7) Gastritis: Code(s): K29.70 - Gastritis, unspecified, without bleeding Status: Acute (8) Hypothyroidism (acquired): Code(s): E03.9 - Hypothyroidism, unspecified Status: Acute (9) Hyperlipidemia: Qualifiers: Hyperlipidemia type: mixed hyperlipidemia Qualified Code(s): E78.2 - Mixed hyperlipidemia Code(s): E78.5 - Hyperlipidemia, unspecified Status: Acute (10) Hyponatremia: Code(s): E87.1 - Hypo-osmolality and hyponatremia Status: Acute Assessment and Plan: resolved DS: Summary Hospital Course Hospital Course: 82-year-old female with past medical history significant for hypertension, hyperlipidemia, macular degeneration, hypothyroidism aortic stenosis is presenting with dysuria. She was found to have significant urinary retention relieved by Solis catheter insertion. Urinalysis was abnormal but not abnormal enough to send for culture. She was started on Rocephin for prophylaxis regardless. Urology was consulted and recommended continuing antibiotics and following up in their office in 7-10 days, she is to keep the Solis in until then. Due to her being essentially blind, she will be sent to SNF until the Solis is able to be removed. Renal ultrasound showed no hydronephrosis and no further intervention recommended. They were concerned for atonic bladder and may need a urodynamic study outpatient. Of note, she had electrolyte abnormalities and her hydrochlorothiazide was discontinued indefinitely. Time Spent with Patient Time attestation: Total time spent providing and/or coordinating discharge services: DS: Data Data Completed and Pending Labs on day of discharge: Labs from last 24 hours 10/29/22 10/29/22 05:23 05:23 WBC 11.5 H RBC 4.38 Hgb 12.8 Hct 38.9 MCV 88.8 MCH 29.2 MCHC 32.9 RDW 15.8 H Plt Count 160 MPV 10.5 H Immature Gran % (Auto) 0.4 Neut % (Auto) 71.3 Lymph % (Auto) 18.0 L [place] % (Auto) 9.8 H Eos % (Auto) 0.3 Baso % (Auto) 0.2 Lymph # (Auto) 2.07 [place] # (Auto) 1.1 H Eos # (Auto) 0.0 Baso # (Auto) 0.0 Abs Immat Gran (auto) 0.05 H Absolute Neuts (auto) 8.2 H Absolute Nucleated RBC 0.0 Nucleated RBC % 0.0 Sodium 137 Potassium 3.5 Chloride 103 Carbon Dioxide 30 Anion Gap 4 L BUN 15 Creatinine 0.80 Estim Creat Clear Calc 39 Estimated GFR > 60 Glucose 92 Calcium 8.4 Total Bilirubin 0.7 AST 57 H ALT 25 Alkaline Phosphatase 50 Total Protein 6.0 L Albumin 3.5 Triglycerides 70 Cholesterol 127 LDL Cholesterol Direct 47 HDL Direct 55 Discharge Plan Discharge Attending physician on discharge: Stacey Caal Consulting providers: Dunia Magana ; Brian Elam Discharging Clinician: Andrade Caal
[2022-10-29 14:03] VITALS: BP 130/66; PULSE 86; RESP 16; TEMP 36.7; O2SAT 100
[2022-10-29 14:46] LABS: EDCOVIDSCREEN Negative (Negative)
== END 2022-10-29 16:48 | DRG 690 ==
LOC: ANHED 20:31 → ANH3MEDSUR 22:24
PROVIDERS: Admitting Provider Internal Medicine; Emergency Provider Physician Assistant; PCP Family Medicine; Visit Provider Student in an Organized Health Care Education/Training Program
DX: N39.0 Urinary tract infection, site not specified (principal); E87.1 Hypo-osmolality and hyponatremia; R33.9 Retention of urine, unspecified; Z20.822 Contact with and (suspected) exposure to COVID-19; I10 Essential (primary) hypertension; I65.23 Occlusion and stenosis of bilateral carotid arteries; K29.70 Gastritis, unspecified, without bleeding; E78.2 Mixed hyperlipidemia; I35.0 Nonrheumatic aortic (valve) stenosis; N32.81 Overactive bladder; E03.9 Hypothyroidism, unspecified; H54.8 Legal blindness, as defined in USA; H35.3290 Exudative age-related macular degeneration, unspecified eye, stage unspecified; H40.9 Unspecified glaucoma; M81.0 Age-related osteoporosis without current pathological fracture; I69.392 Facial weakness following cerebral infarction; Z85.3 Personal history of malignant neoplasm of breast
CPT/HCPCS: 36415; 51701; 74177; 76775; 80053; 80061; 81001; 85025; 87426; 87636; 93306; 96365; 96375; 97161; 97165; 99285; A9270; C9113; C9803; G0378; J0360; J0696; J7030; Q9967

== ENCOUNTER 2022-11-11 13:37 | Outpatient (CLI) | payer MEDICARE, SELFPAY ==
--- NOTE | ~2022-11-11 | MR_ITS ---
EXAMINATION: MR lumbar spine wo/w con, MR thoracic spine wo/w con DATE: 11/11/2022 15:36 INDICATION: Sudden onset bilateral leg weakness TECHNIQUE: 1. Magnetic resonance imaging (MRI) of the thoracic spine was performed without and with 13 mL Multih ance intravenous contrast. 2. MRI of the lumbar spine was performed without and with 13 mL Multihance intravenous contrast utili zing the same contrast bolus. Sequences included sagittal T2-weighted FSE, sagittal T2-weighted FS FS E, sagittal T1-weighted FSE, and axial T2-weighted FSE. COMPARISON: CT abdomen and pelvis dated 10/27/2022 and two-view chest radiograph dated 10/31/2015 FINDINGS: Thoracic spine: 12 degree thoracic dextroscoliosis and mild kyphosis. T11 butterfly vertebra with invaginations at th e central posterior aspect of both the superior and inferior endplates. Chronic anterior wedging with 20% anterior vertebral body height loss at T12. Chronic mild superior endplate compression fracture at L4 with 20% central vertebral body height loss. Remaining vertebral body heights are normal. No ac francy fractures. There are scattered mild degenerative fibrofatty endplate changes. Moderate disc heigh t loss at C7-T1, T4-T5, T9-T10 and T12-L1. Mild disc height loss at remaining thoracic levels. There are disc bulges or small disc protrusions resulting in mild central canal stenosis at each of these l evels throughout the entire thoracic spine. Severe facet osteoarthritis resulting in moderate neural from stenosis on the left at T10-T11. Multilevel mild to moderate facet osteoarthritis bilaterally th roughout the remainder of the thoracic spine resulting in minimal to mild neural foraminal stenosis a t several additional thoracic levels. There is normal cord signal throughout the thoracic spine. No a bnormally enhancing lesions identified. Paravertebral soft tissues are unremarkable. Lumbar spine: 17 degree lumbar levoscoliosis. Sagittal alignment is normal. Chronic mild anterior wedging at T12 wi th <20% anterior vertebral body height loss. Lumbar vertebral body heights are normal. Severe disc he ight loss at: L2 and L2-L3. Moderate disc height loss at T12-L1, L3-L4 and L5-S1 and mild disc height loss at L4-L5. There are scattered fibrofatty degenerative endplate changes. No acute fracture. The conus medullaris terminates at L1-L2. There is normal signal in the conus and caudal spinal cord. 2.2 cm T2 hyperintense nonenhancing right renal cyst. Paravertebral soft tissues are otherwise unremarka ble. The following disc levels are specifically discussed: T12-L1: Disc is bulging. There is mild bilateral facet joint osteoarthritis. There is mild bilateral neural foraminal stenosis. There is mild bilateral central canal stenosis. L1-L2: Disc is bulging with superimposed right paracentral annular fissure and disc extrusion with di sc material extending 4 mm caudal to the level of the superior endplate of L2 and which narrows the r ight lateral recess. There is mild left and mild to moderate right facet joint osteoarthritis. There is mild left and moderate right neural foraminal stenosis. There is mild central canal stenosis. L2-L3: Annular fissure with posterior disc osteophyte complex. There is mild to moderate left and mod erate right facet joint osteoarthritis. There is moderate bilateral, right greater than left neural f oraminal stenosis. There is mild central canal stenosis. L3-L4: Annular fissure with disc extrusion extending from foraminal zone to foraminal zone with disc material extending up to 5 mm caudal to the level of the superior endplate of L4. There is hypertroph y of the ligamentum flavum. There is moderate bilateral, left greater than right facet joint osteoart hritis. There is moderate to severe bilateral neural foraminal stenosis. There is moderate central ca nal stenosis. L4-L5: Disc is bulging with annular fissure. There is hyper
== END 2022-11-11 13:38 | disposition home or self-care (01) ==
LOC: ANHIMG 13:38
PROVIDERS: PCP Family Medicine; Visit Provider Family Medicine
DX: R74.02 Elevation of levels of lactic acid dehydrogenase [LDH] (principal); G62.81 Critical illness polyneuropathy; M41.84 Other forms of scoliosis, thoracic region; M43.06 Spondylolysis, lumbar region; M48.061 Spinal stenosis, lumbar region without neurogenic claudication
CPT/HCPCS: 72157; 72158; A9577

== ENCOUNTER 2022-11-24 14:18 | Inpatient (IN) | payer MEDICARE, SELFPAY ==
[2022-11-24] VITALS (34 sets, daily range): BP systolic 92–143; BP diastolic 52–76; PULSE 84–128; RESP 14–27; TEMP 36.5–39.6; O2SAT 94–99; BMI 25.0
--- NOTE | ~2022-11-24 | US_ITS ---
EXAMINATION: US abdomen limited DATE: 11/26/2022 15:31 INDICATION: Elevated liver function tests TECHNIQUE: Multiple grayscale and Doppler ultrasound images of the abdomen were obtained. COMPARISON: None available FINDINGS: Bowel gas obscures visualization of the pancreas. The visualized portions of the pancreas a re unremarkable. The liver is normal with normal echogenicity and echotexture. No surface nodularity. Normal hepatopetal flow in the main portal vein. The gallbladder is normal with no abnormal wall thi ckening, pericholecystic fluid or stones. The normal common bile duct measures 4 mm. There was no son ographic Jacobo sign. A right pleural effusion is noted. IMPRESSION: 1. Normal sonographic study of the gallbladder. Reviewed, dictated and finalized at location B.
--- NOTE | ~2022-11-24 | XR_ITS ---
EXAMINATION: XR chest 1V portable Exam Date/Time: 11/24/2022 16:20 CDT HISTORY: fever, weakness Comparison: 10/31/2015. RESULT: Lines, tubes, and devices: None. Lungs and pleura: Mild senescent changes. Otherwise clear. Cardiomediastinal silhouette: Dilated central pulmonary arteries as can be seen with pulmonary arter ial hypertension. Other: No acute osseous or upper abdominal finding. IMPRESSION: No acute cardiopulmonary process. Reviewed, dictated and finalized at location K.
--- NOTE | ~2022-11-24 | CT_ITS ---
EXAMINATION: CT chest high resolution wo co DATE: 11/28/2022 09:48 INDICATION: Shortness of breath, crackles. Sepsis of unknown origin. TECHNIQUE: Computed tomography (CT) of the chest was performed without intravenous contrast. Automate d exposure control and iterative reconstruction technique were employed. Exam dose: 300.99 mGy-cm to nat exam DLP. COMPARISON: 11/24/2022 portable AP chest FINDINGS: There is mild amount of bilateral dependent pleural effusion. Heart size is normal. Coronary artery calcification. There is some calcification of the aortic valve area. There is thoracic aortic calcification but no a neurysm. Calcified left hilar and subcarinal nodes and calcified hepatic and splenic granulomas, consistent wi th old granulomatous disease. No hilar or mediastinal mass lesion or lymphadenopathy is evident. Normal morphology of the adrenal glands. Status post left mastectomy. Probable postoperative radiation change along the anterior segment of the left upper lobe. There is mild bilateral lower lobe dependent atelectasis. Mild patchy diffuse bilateral groundglass d ensity in the lungs which may be due to atelectasis or pneumonitis. Prominent degenerative disc disease in the lower cervical spine. Mild likely chronic compression fracture of T4 degenerative changes of the thoracic and lumbar spine. No suspicious osteolytic or osteoblastic lesions are noted. IMPRESSION: Mild patchy groundglass infiltrates throughout the lungs and biapical lateral dependent lower lobe atelectasis Mild to moderate bilateral free pleural effusions Status post left mastectomy Reviewed, dictated and finalized at Location A. Reviewed, dictated and finalized at location A. IMPRESSION: Mild patchy groundglass infiltrates throughout the lungs and biapi asaf lateral dependent lower lobe atelectasis Mild to moderate bilateral free pleural effusions Status post left mastectomy
--- NOTE | ~2022-11-24 | US_ITS ---
EXAMINATION: US renal BI DATE: 11/27/2022 11:30 INDICATION: Hydronephrosis TECHNIQUE: Multiple grayscale and Doppler ultrasound images of the kidneys were obtained. COMPARISON: CTs dated 11/26/2022 and 10/27/2022; ultrasound, 10/28/2022 FINDINGS: The right kidney measures 11.4 x 6.2 x 6.0 cm. The left kidney measures 10.2 x 6.0 x 5.2 cm . The kidneys demonstrate normal parenchymal echogenicity. There is mild bilateral hydronephrosis wit hout change since CT dated 10/27/2022. The bladder is decompressed by Solis catheter. IMPRESSION: 1. Unchanged mild hydronephrosis without acute findings. Reviewed, dictated and finalized at location A.
--- NOTE | ~2022-11-24 | CT_ITS ---
EXAMINATION: CT abdomen pelvis wo con DATE: 11/26/2022 14:58 INDICATION: Sepsis of unknown etiology. Elevated liver function tests. TECHNIQUE: Computed tomography (CT) of the abdomen and pelvis was performed without intravenous contr ast. Automated exposure control and iterative reconstruction technique were employed. Exam dose: 104 3.77 mGy-cm total exam DLP. COMPARISON: October 27, 2022 CT abdomen pelvis FINDINGS: Exam quality of image detail are limited by the patient's arms overlying the abdomen. There is bilateral lower lobe dependent atelectasis associated with mild to moderate bilateral pleura l effusions. Status post left mastectomy. Normal heart size. Aortic and coronary artery calcification. No pericardial effusion. Multiple hepatic and splenic calcified granulomas. There are one or 2 small calcifications situated near the neck of the gallbladder, possibly in the li sallie or gallbladder. These were not evident on 10/27/2022. Gallbladder wall detail is quite limited due to artifact from the overlying upper extremities, but gallbladder wall thickening or gallbladder wal l edema or cholecystic fluid cannot be excluded. Consider gallbladder ultrasound for more definitive evaluation of the gallbladder. No bile duct or pancreatic duct dilatation. No pancreatic mass lesion or calcification is evident. Bilateral nephrolithiasis. There is right nephromegaly and asymmetric right perinephric stranding. Th ere is moderate right hydroureteronephrosis. There is an approximately 4 x 5.8 mm calculus at the rig ht ureterovesical junction dependent aspect of the urinary bladder lumen. There is a Solis catheter a nd mild amount of air within the evacuated urinary bladder. The uterus and adnexal areas are unremarkable. There is mild to moderate free fluid in the dependent lower pelvis. There is atherosclerotic calcification but normal caliber of the abdominal aorta. No intraperitoneal or retroperitoneal or pelvic mass lesion or adenopathy is detected. Diverticulosis of the colon; no CT evidence of diverticulitis is noted. No bowel obstruction or intra peritoneal free air is detected. Small fat-containing umbilical hernia. Extensive degenerative changes of the thoracic and lumbar spine IMPRESSION: 4 x 5.8 mm right ureterovesical junction posterior urinary bladder calculus with mild to moderate right hydroureteronephrosis Bilateral nephrolithiasis Cannot exclude cholelithiasis or gallbladder wall thickening or edema; consider gallbladder ultrasoun d for more definitive evaluation due to the limitations of this examination with overlying upper extr emities Diverticulosis of colon; no evidence of diverticulitis Status post left mastectomy Reviewed, dictated and finalized at Location A. Reviewed, dictated and finalized at location A. IMPRESSION: 4 x 5.8 mm right ureterovesical junction posterior urinary bladder calculus with mild to moderate right hydroureteronephrosis Bilateral nephrolithiasis Cannot exclude cholelithiasis or gallbladder wall thickening or edema; consider gallbladder ultrasound for more definitive evaluation due to the limitations o f this examination with overlying upper extremities Diverticulosis of colon; no evidence of diverticulitis Status post left mastectomy
--- NOTE | ~2022-11-24 | US_ITS ---
EXAMINATION: US venous doppler [facility] DATE: 11/24/2022 23:06 INDICATION: edema . TECHNIQUE: Grayscale images without and with compression and Doppler images of the bilateral lower ex tremity veins were obtained. COMPARISON: None FINDINGS: The right common femoral vein, profunda (deep) femoral vein, femoral vein, popliteal vein, peroneal v ein, posterior tibial veins, gastrocnemius vein, and greater saphenous vein are patent. Subcutaneous leg edema. The left common femoral vein, profunda (deep) femoral vein, femoral vein, popliteal vein, peroneal v ein, posterior tibial veins, gastrocnemius vein, and greater saphenous vein are patent. Subcutaneous leg edema. IMPRESSION: 1. Patent bilateral lower extremity veins. No evidence of deep venous thrombosis. Reviewed, dictated and finalized at location K. IMPRESSION: 1. Patent bilateral lower extremity veins. No evidence of deep venous thrombos is.
--- NOTE | 2022-11-24 14:36 | ECG_ITS ---
Measurements Intervals [place] Rate: 116 P: 64 MN: 132 QRS: 62 QRSD: 78 T: 41 QT: 274 QTc: 381 Interpretive Statements SINUS TACHYCARDIA PEAKED T WAVES- CONSIDER HYPERKALEMIA BASELINE ARTIFACT- I, II, III, AVR, AVL, AVF, V1-V2 ABNORMAL ECG NO PREVIOUS ECG AVAILABLE FOR COMPARISON Electronically Signed On 11-24-2022 15:09:54 CDT by Saroj Benoit D.O.
[2022-11-24] MEDS: ONDANSETRON INJ 4 MG/2 ML VIAL IV PUSH (14:37)
[2022-11-24] MEDS: ACETAMINOPHEN 500 MG TABLET 1000 MG PO (14:51)
[2022-11-24 15:00] LABS: Appearance Urine Turbid (Clear); Bacteria Urine 4+ /hpf; Bilirubin Urine Negative (Negative); Blood Urine 1+ (Negative); Color Urine Yellow (Yellow); Glucose Urine UA Negative (Negative); Ketones Urine Negative (Negative); Leukocyte Esterase Ur 3+ LEU/UL (Negative); Nitrate Urine Negative (Negative); Non Pathogenic Casts 0-2; Protein Urine 2+ mg/dL (Negative); RBC Urine 0-2 /hpf (0-2); Specific Grav Ur 1.009 (1.001-1.035); Squamous Epithelial Cell Urine None seen /hpf (Few); Urobilinogen Urine 0.2 mg/dL (<2.0); WBC Urine >100 /hpf
[2022-11-24 15:17] LABS: Add Urine Microscopic? YES
[2022-11-24 16:15] LABS: Hematocrit 33.8 % (37.0-47.0); Hemoglobin 11.7 g/dL (12.0-15.0); Mean Corpuscular HGB Conc 34.6 g/dl (32-36); Mean Corpuscular Hemoglobin 29.1 pg (26-34); Mean Corpuscular Volume 84.1 fl (80-100); Mean Platelet Volume 9.4 fl (7.4-10.4); Platelet Count Result 221 k/mm3 (150-375); Red Blood Count 4.02 M/mm3 (4.2-5.4); Red Cell Distribution Width 15.3 % (11.5-14.5); White Blood Count 13.4 K/mm3 (4.5-10.0)
[2022-11-24 16:26] LABS: Band Neutrophils Percent 16 % (0-6); Eosinophils Absolute Manual 0.13 K/mm3 (0.02-0.5); Eosinophils Percent Manual 1 % (0-4); Monocytes Absolute Manual 1.34 K/mm3 (0.1-0.90); Monocytes Percent Manual 10 % (3-9); Neutrophils Absolute Manual 11.52 K/mm3 (1.7-7.2); Neutrophils Percent Manual 70 % (46-73); Platelet Estimate Adequate (Adequate); Total Cells Counted 100
[2022-11-24] MEDS: SODIUM CHLORIDE 0.9% IV 1,000 ML 999 ML IV CONT (16:26)
[2022-11-24 16:27] LABS: Schistocytes None Seen (NORMAL)
[2022-11-24 16:43] LABS: Alanine Aminotransferase 37 U/L (6-35); Albumin Level 2.9 g/dL (3.5-5.1); Alkaline Phosphatase 96 U/L (38-126); Anion Gap 4 mmol/L (8-16); Aspartate Amino Transferase 50 U/L (14-36); Bilirubin,Total 0.6 mg/dL (0.2-1.3); Blood Urea Nitrogen 18 mg/dL (7-17); Calcium 8.3 mg/dL (8.4-10.2); Carbon Dioxide 30 mmol/L (22-30); Chloride 85 mmol/L (98-107); Estimated CRCL calculation 33 ml/min; Estimated Glomerular Filt Rate 53; Glucose 117 mg/dL (65-110); Potassium 4.4 mmol/L (3.4-5.0); Sodium 119 mmol/L (137-145)
--- NOTE | 2022-11-24 16:59 | ED.GENADULT ---
HPI - General Adult General Chief complaint: Fever Stated complaint: AMS, hypoxic Time Seen by Provider: 11/24/22 14:37 History of Present Illness HPI narrative: Patient is an 82-year-old female who presents to the ER with a fever. Began today. Patient has not been able to urinate. Solis catheter placement revealed 600 mL of urine. Patient had had a Solis removed couple weeks ago after having urinary retention. Family reports increased confusion recently as well. Related Data Home Medications Medication Instructions Recorded Confirmed dorzolamide 2 % eye drops 1 drp LEFT EYE BID 10/28/22 11/24/22 timolol maleate 0.5 % eye drops 1 drp LEFT EYE BID 10/28/22 11/24/22 acetaminophen 650 mg 650 mg PO Q8H PRN pain 1-5 11/24/22 11/24/22 tablet,extended release (Tylenol Arthritis Pain) atorvastatin 10 mg tablet 10 mg PO QPM 11/24/22 11/24/22 calcium carbonate 600 mg-vitamin 1 tablet PO BID 11/24/22 11/24/22 D3 10 mcg (400 unit) tablet (Calcium with Vitamin D) clopidogrel 75 mg tablet 75 mg PO DAILY 11/24/22 11/24/22 furosemide 20 mg tablet 20 mg PO DAILY 11/24/22 11/24/22 gabapentin 100 mg capsule 100 mg PO DAILY 11/24/22 11/24/22 gabapentin 100 mg capsule 200 mg PO HS 11/24/22 11/24/22 menthol 4 % topical gel (Biofreeze 1 applic topical QID PRN Pain 11/24/22 11/24/22 (menthol)) oxycodone 5 mg tablet 2.5 mg PO DAILY PRN pain 6-10 11/24/22 11/24/22 spironolactone 25 mg tablet 25 mg PO DAILY 11/24/22 11/24/22 Allergies Allergy/AdvReac Type Severity Reaction Status Date / Time No Known Allergies Allergy Unknown Verified 11/24/22 20:39 Review of Systems Constitutional: Constitutional: Denies chills, Reports fatigue and Reports fever(s) ENT: Denies nasal congestion and Denies sore throat Cardiovascular: Cardiovascular: Denies chest pain, Denies rapid heart rate and Denies radiating jaw, neck or arm pain Gastrointestinal: Gastrointestinal: Reports abdominal pain (Suprapubic pressure), Denies nausea and Denies vomiting Genitourinary: Genitourinary: Denies nocturia, Denies dysuria and Denies flank pain PMFSH Past Medical History Medical History (Updated 11/24/22 @ 21:54 by Leanne Todd MD) Age related osteoporosis Aortic stenosis, mild Arthritis Asymptomatic stenosis of both vertebral arteries Benign essential HTN Bilateral carotid artery stenosis Breast CA CVA, old, facial weakness Diastolic dysfunction Essential (primary) hypertension 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 abnormality Glaucoma Hyperlipidemia Hypothyroidism (acquired) Lymphedema of left upper extremity Macular degeneration Postmenopausal Presbycusis of both ears Vitamin D deficiency Surgical History Surgical History History of left mastectomy Family History Family History Other Hypertension Social History Social History (Updated 11/24/22 @ 21:29 by Kaya Hernandez PA-C) Social History: Surrogate medical decision maker: Mejia Ventura, son. Code status: Full code. Smoking status: Never smoker Second hand tobacco smoke exposure: No Alcohol intake: never Substance use: never Substance use type: does not use Lack of Transportation: No Lack of Food: Never True Current Housing: I Have Housing Concerned About Future Housing: No Difficulty Paying Gas/Electric Bills: No Difficulty Paying for Meds: No Currently Unemployed: No Education: High School Diploma/GED Difficulty w/ Childcare or Family Care: No Living arrangements: alone Additional living arrangements comments: Lives in [facility]. Currently at [facility] for rehab. Occupation/Education: retired Spiritual care concerns: No ([employer]) Exam Narrative: GENERAL: Chronically ill-appearing, well-nourished, and in no acute distress. HEAD: Normocephalic, atraumatic. EYES: PERRL and EOM
--- NOTE | 2022-11-24 17:30 | PM.IMHP ---
H&P: HPI History of Present Illness Date/Time: 11/24/22 17:30 Chief Complaint: Fever. Narrative: This is a pleasant 82-year-old female with hypertension, dyslipidemia, carotid artery stenosis, hypothyroidism, glaucoma, macular degeneration, and history of breast cancer with left upper extremity lymphedema who presented to the emergency department via EMS from [facility] for evaluation of a fever. Patient provides the following history. Her son and [id number] who are at bedside provides additional history, with the patient's permission. She was discharged to rehab on 10/29/2022 following admission for urinary retention and urinary tract infection several days prior. It is my understanding that her Solis catheter was removed within the past couple of days and that she had been urinating. Family members indicate that she has seemed confused recently and she has become more weak. Today she was increasingly weak and was complaining of nausea. That remains her only complaint. She does not really remember what happened today. She denies headache, cold and flu symptoms, chest pain, vomiting, and dysuria. She has had some issues with bowel incontinence though that has been ongoing since her most recent hospitalization and does not seem to be a new finding. Today staff noted that her color seemed to be off and she was found to be febrile with a temperature of 103.2? F. Her SpO2 was reportedly 85% on room air as well however she is currently on room air with SpO2 is in the mid to upper 90s. EMS was summoned and she was brought to the ER for evaluation. She has had a few soft blood pressures at the lower end of normal (94/52) but those have responded nicely to IV fluids. She has since defervesced after receiving Tylenol. Pertinent labs included WBC count of 13.4 with 16% bands on automated differential, sodium 129, potassium 4.4, chloride 85, BUN 18, creatinine 1.00. Urine was turbid with 3+ leukocyte esterase, greater than 100 wbc's, and 4+ bacteria. Solis catheter drained 400 mL of urine on insertion. Chest x-ray showed no acute cardiopulmonary process. In the ED she was given acetaminophen for her fever and ceftriaxone for presumed urinary tract infection. She is being admitted in this setting for sepsis due to UTI and profound hyponatremia. Review of Systems Review of Systems: Twelve systems were reviewed. Somewhat limited as she seems to be a bit confused. Negative except for as per HPI. [facility] Past Medical History Medical History (Updated 11/24/22 @ 21:35 by Kaya Hernandez PA-C) Age related osteoporosis Aortic stenosis, mild Arthritis Asymptomatic stenosis of both vertebral arteries Benign essential HTN Bilateral carotid artery stenosis Breast CA CVA, old, facial weakness Diastolic dysfunction Essential (primary) hypertension 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 abnormality Glaucoma Hyperlipidemia Hypothyroidism (acquired) Lymphedema of left upper extremity Macular degeneration Postmenopausal Presbycusis of both ears Vitamin D deficiency Surgical History Surgical History History of left mastectomy Family History Family History Other Hypertension Social History Social History (Updated 11/24/22 @ 21:29 by Kaya Hernandez PA-C) Social History: Surrogate medical decision maker: Mejia Ventura, son. Code status: Full code. Smoking status: Never smoker Second hand tobacco smoke exposure: No Alcohol intake: never Substance use: never Substance use type: does not use Lack of Transportation: No Lack of Food: Never True Current Housing: I Have Housing Concerned About Future Housing: No Difficulty Paying Gas/Electric Bills: No Difficulty Paying for Meds: No Currently Unemployed: No Education: High School Diploma/GED Difficulty w/ Childcare or Family Care: No Marleni
[2022-11-24] MEDS: SODIUM CHLORIDE 0.9% IV 1,000 ML 125 ML IV CONT (17:46)
--- NOTE | 2022-11-24 20:35 | PC.NURSE ---
This patient, Marcus Ventura, was admitted to IMU Room 205-02. Patient/family oriented to hospital policies and general routines including ID bracelet, bed and alarms, visiting hours, pain management, procedures, bathroom and other care routines, personal items, smoking policy, room service/diet, and visiting hours. Information on how to activate the Rapid Response Team has been discussed. Patient/Family are encouraged to report perceived risks to care and to ask questions if they do not understand what they are told or what they should do.
[2022-11-24 21:57] LABS: Lactic Acid Reflex 1.1 mmol/L (0.7-2.0)
[2022-11-24 22:07] LABS: Anion Gap 1 mmol/L (8-16); Blood Urea Nitrogen 11 mg/dL (7-17); Calcium 5.3 mg/dL (8.4-10.2); Carbon Dioxide 23 mmol/L (22-30); Chloride 103 mmol/L (98-107); Estimated CRCL calculation 53 ml/min; Estimated Glomerular Filt Rate > 60; Glucose 77 mg/dL (65-110); Potassium 3.1 mmol/L (3.4-5.0); Sodium 127 mmol/L (137-145)
--- NOTE | 2022-11-24 22:13 | ADMGEN ---
This patient, Marcus Ventura, was admitted to IMU Room 205-02 at 2020. Patient/family oriented to hospital policies and general routines including ID bracelet, bed and alarms, visiting hours, pain management, procedures, bathroom and other care routines, personal items, smoking policy, room service/diet, and visiting hours. Information on how to activate the Rapid Response Team has been discussed. Patient/Family are encouraged to report perceived risks to care and to ask questions if they do not understand what they are told or what they should do.
[2022-11-24 22:40] LABS: Thyroid Stimulating Hormone Reflex 0.686 uIU/mL (0.465-4.68)
[2022-11-24 23:21] LABS: Creatinine Urine 60.6 mg/dL; Urea Random Urine 476 MG/DL
[2022-11-24 23:23] LABS: Sodium Urine Random 64 meq/L
[2022-11-24] MEDS: GABAPENTIN 100 MG CAPSULE 200 MG PO (23:42)
[2022-11-24] MEDS: ATORVASTATIN 10 MG TABLET PO (23:42)
[2022-11-24] MEDS: TIMOLOL MALEATE 0.5% OP SOLN 5 ML BOTTLE 1 DROP LEFT EYE (23:42)
[2022-11-24] MEDS: DORZOLAMIDE HCL 2% OPHTH DROPS 1 DROP LEFT EYE (23:42)
[2022-11-25] VITALS (15 sets, daily range): BP systolic 81–155; BP diastolic 46–90; PULSE 67–129; RESP 16–22; TEMP 36.4–37.7; O2SAT 90–97; BMI 24.9
[2022-11-25 01:12] LABS: Anion Gap 4 mmol/L (8-16); Blood Urea Nitrogen 13 mg/dL (7-17); Calcium 7.1 mg/dL (8.4-10.2); Carbon Dioxide 26 mmol/L (22-30); Chloride 93 mmol/L (98-107); Estimated CRCL calculation 46 ml/min; Estimated Glomerular Filt Rate > 60; Glucose 112 mg/dL (65-110); Potassium 3.7 mmol/L (3.4-5.0); Sodium 123 mmol/L (137-145)
[2022-11-25 04:51] LABS: Hematocrit 33.8 % (37.0-47.0); Hemoglobin 11.5 g/dL (12.0-15.0); Mean Corpuscular Hemoglobin 28.9 pg (26-34); Mean Corpuscular Volume 84.9 fl (80-100); Mean Platelet Volume 9.3 fl (7.4-10.4); Platelet Count Result 205 k/mm3 (150-375); Red Blood Count 3.98 M/mm3 (4.2-5.4); Red Cell Distribution Width 15.5 % (11.5-14.5); White Blood Count 19.8 K/mm3 (4.5-10.0)
[2022-11-25 04:58] LABS: Alanine Aminotransferase 38 U/L (6-35); Albumin Level 2.4 g/dL (3.5-5.1); Alkaline Phosphatase 87 U/L (38-126); Anion Gap 3 mmol/L (8-16); Aspartate Amino Transferase 57 U/L (14-36); Bilirubin,Total 0.5 mg/dL (0.2-1.3); Blood Urea Nitrogen 14 mg/dL (7-17); Calcium 7.3 mg/dL (8.4-10.2); Carbon Dioxide 27 mmol/L (22-30); Chloride 91 mmol/L (98-107); Estimated CRCL calculation 37 ml/min; Estimated Glomerular Filt Rate 60; Glucose 95 mg/dL (65-110); Magnesium 1.3 mg/dL (1.6-2.3); Potassium 4.2 mmol/L (3.4-5.0); Sodium 121 mmol/L (137-145)
[2022-11-25] MEDS: LEVOTHYROXINE SODIUM 75 MCG TABLET PO (05:03)
[2022-11-25] MEDS: SODIUM CHLORIDE 0.9% IV 1,000 ML 125 ML IV CONT ×2 (05:19→23:02)
--- NOTE | 2022-11-25 07:48 | PM.IMPN ---
Progress Note: A&P Assessment and Plan (1) Sepsis: Code(s): A41.9 - Sepsis, unspecified organism Status: Acute Assessment and Plan: Present on admission and supported by for fever, tachycardia, leukocytosis with bandemia, and soft blood pressures which have improved with IV fluids. Blood and urine cultures pending. 11/25: Leukocytosis worsened on Rocephin, escalated to cefepime, MRSA swab pending (2) Urinary tract infection: Code(s): N39.0 - Urinary tract infection, site not specified Status: Acute Assessment and Plan: Discontinue ceftriaxone started 11/24, start cefepime 11/25, follow urine culture results (3) Urinary retention: Code(s): R33.9 - Retention of urine, unspecified Status: Acute Assessment and Plan: Solis catheter inserted. Monitor I/O. Voiding trial when more stable (4) Hyponatremia: Code(s): E87.1 - Hypo-osmolality and hyponatremia Status: Acute Assessment and Plan: Urine and serum osmolalities, TSH, and urine sodium and urea have been ordered and are pending. Gentle IVF at 75 ml/hr, sodium was 119 at presentation, improved rapidly to 127, IVF rate slowed and sodium came back down to 123, then 121, cont NS and monitor sodium this afternoon. Repeat sodium unchanged, will increase rate overnight and recheck tomorrow. (5) Protein calorie malnutrition: Code(s): E46 - Unspecified protein-calorie malnutrition Status: Acute Assessment and Plan: Dietitian consult appreciated. (6) Diastolic dysfunction: Code(s): I51.89 - Other ill-defined heart diseases Status: Acute Assessment and Plan: EF was greater than 70% on recent echocardiogram. Check venous Doppler ultrasounds to rule out DVT given decreased mobility recently. Continue compression hose. Encourage elevation of lower extremities. (7) Hypothyroidism (acquired): Code(s): E03.9 - Hypothyroidism, unspecified Status: Acute Assessment and Plan: Continue levothyroxine and check TSH. (8) Elevated liver enzymes: Code(s): R74.8 - Abnormal levels of other serum enzymes Status: Acute Assessment and Plan: Mild AST and ALT elevation, may be related to sepsis. Abdominal exam is benign. Monitor. Plan DVT prophylaxis with SCDs GI prophylaxis not indicated Code status DNR Subjective Date/time seen: 11/25/22 07:48 Interval history: 82-year-old female with history of carotid artery stenosis, history of breast cancer [facility] and found to have UTI with sepsis, worsening on Rocephin, currently on cefepime. Patient is intermittently somnolent and confused. She is alert to self and location, but otherwise seems confused as to why she is here. She answers some questions appropriately, but unable to fully assess her symptoms. Review of Systems Review of Systems: ROS unobtainable: Yes unobtainable due to medical condition Exam Narrative: General: No acute distress, somnolent, confused, axox2 HEENT: Atraumatic, normocephalic, mucous membranes dry CV: Regular rate and rhythm, S1, S2 Lungs: scattered crackles, moderate air entry, no wheeze Abdomen: Soft, nontender, nondistended Extremities: Normal to inspection Skin: No rashes noted, no lesions or wounds seen Psych: appears confused, limited judgment and insight Objective Data Vital Signs Vital Signs: Vital Signs - 24 hr 11/24/22 14:32 11/24/22 14:35 11/24/22 14:51 Temperature 103.2 F H Pulse Rate 128 H 113 H 109 H Respiratory Rate 24 H 19 23 H Blood Pressure 131/76 Pulse Oximetry 97 99 Oxygen Delivery Room Air 11/24/22 15:00 11/24/22 15:15 11/24/22 15:16 Temperature Pulse Rate 107 H 108 H 102 H Respiratory Rate 27 H 23 H 26 H Blood Pressure 108/57 L Pulse Oximetry 97 94 98 Oxygen Delivery 11/24/22 15:30 11/24/22 15:31 11/24/22 15:45 Temperature
[2022-11-25 08:40] LABS: Sodium 121 mmol/L (137-145)
[2022-11-25] MEDS: CLOPIDOGREL BISULFATE 75 MG TABLET PO (09:36)
[2022-11-25] MEDS: DORZOLAMIDE HCL 2% OPHTH DROPS 1 DROP LEFT EYE ×2 (09:36→20:39)
[2022-11-25] MEDS: TIMOLOL MALEATE 0.5% OP SOLN 5 ML BOTTLE 1 DROP LEFT EYE ×2 (09:36→20:40)
[2022-11-25] MEDS: TAMSULOSIN HCL 0.4 MG CAPSULE PO (09:37)
[2022-11-25] MEDS: GABAPENTIN 100 MG CAPSULE PO (09:37)
[2022-11-25] MEDS: SODIUM CHLORIDE 0.9% IV 1,000 ML 75 ML IV CONT (10:00)
[2022-11-25] MEDS: ACETAMINOPHEN 325 MG TABLET 650 MG PO (12:25)
[2022-11-25 12:57] LABS: Sodium 121 mmol/L (137-145)
[2022-11-25 13:10] LABS: EDCOVIDSCREEN Negative (Negative)
[2022-11-25] MEDS: CEFEPIME 2 GM/NS 50 ML 2 GM/50 ML BAG IVPB (14:41)
[2022-11-25 16:56] LABS: Sodium 121 mmol/L (137-145)
--- NOTE | 2022-11-25 17:00 | PC.NURSE ---
Patient is more somnolent this evening. Difficult to arouse but still oriented. BP is low. Dr. Caal notified and new orders received for fluid bolus and antibiotic changes.
[2022-11-25] MEDS: SODIUM CHLORIDE 0.9% IV 1,000 ML 999 ML IV CONT (17:50)
[2022-11-25 18:12] LABS: Lactic Acid Reflex 1.4 mmol/L (0.7-2.0)
[2022-11-25 18:33] LABS: Procalcitonin 3.7 ng/mL
[2022-11-25] MEDS: GABAPENTIN 100 MG CAPSULE 200 MG PO (20:39)
[2022-11-25 21:04] LABS: Sodium 122 mmol/L (137-145)
[2022-11-26] VITALS (15 sets, daily range): BP systolic 95–135; BP diastolic 43–65; PULSE 67–129; RESP 16–24; TEMP 36.2–38.3; O2SAT 92–98
[2022-11-26] MEDS: SODIUM CHLORIDE 0.9% IV 1,000 ML 125 ML IV CONT ×2 (05:18→17:01)
[2022-11-26] MEDS: LEVOTHYROXINE SODIUM 75 MCG TABLET PO (05:18)
[2022-11-26 05:30] LABS: Hematocrit 31.6 % (37.0-47.0); Hemoglobin 10.6 g/dL (12.0-15.0); Mean Corpuscular HGB Conc 33.5 g/dl (32-36); Mean Corpuscular Hemoglobin 28.6 pg (26-34); Mean Corpuscular Volume 85.4 fl (80-100); Mean Platelet Volume 10.1 fl (7.4-10.4); Platelet Count Result 202 k/mm3 (150-375); Red Cell Distribution Width 15.9 % (11.5-14.5); White Blood Count 20.6 K/mm3 (4.5-10.0)
[2022-11-26 05:41] LABS: Alanine Aminotransferase 41 U/L (6-35); Albumin Level 2.4 g/dL (3.5-5.1); Alkaline Phosphatase 88 U/L (38-126); Anion Gap 2 mmol/L (8-16); Aspartate Amino Transferase 71 U/L (14-36); Bilirubin,Total 0.4 mg/dL (0.2-1.3); Blood Urea Nitrogen 17 mg/dL (7-17); Carbon Dioxide 24 mmol/L (22-30); Chloride 96 mmol/L (98-107); Estimated CRCL calculation 37 ml/min; Estimated Glomerular Filt Rate 60; Glucose 89 mg/dL (65-110); Potassium 4.2 mmol/L (3.4-5.0); Sodium 122 mmol/L (137-145)
[2022-11-26 06:10] LABS: Thyroid Stimulating Hormone 0.821 uIU/mL (0.465-4.680)
[2022-11-26 06:57] LABS: Band Neutrophils Percent 15 % (0-6); Lymphocytes Percent Manual 1 % (18-44); Monocytes Absolute Manual 0.61 K/mm3 (0.1-0.90); Monocytes Percent Manual 3 % (3-9); Neutrophils Absolute Manual 19.77 K/mm3 (1.7-7.2); Neutrophils Percent Manual 81 % (46-73); Total Cells Counted 100
[2022-11-26 06:58] LABS: Platelet Estimate Adequate (Adequate)
[2022-11-26 06:59] LABS: Schistocytes None Seen (NORMAL)
[2022-11-26 07:00] LABS: Burr Cells 1+ (NORMAL)
[2022-11-26] MEDS: TAMSULOSIN HCL 0.4 MG CAPSULE PO (10:45)
[2022-11-26] MEDS: GABAPENTIN 100 MG CAPSULE PO (10:45)
[2022-11-26] MEDS: CLOPIDOGREL BISULFATE 75 MG TABLET PO (10:46)
[2022-11-26] MEDS: TIMOLOL MALEATE 0.5% OP SOLN 5 ML BOTTLE 1 DROP LEFT EYE ×2 (10:46→20:49)
[2022-11-26] MEDS: DORZOLAMIDE HCL 2% OPHTH DROPS 1 DROP LEFT EYE ×2 (10:46→20:49)
--- NOTE | 2022-11-26 11:56 | PM.IMPN ---
Progress Note: A&P Assessment and Plan (1) Sepsis: Code(s): A41.9 - Sepsis, unspecified organism Status: Acute Assessment and Plan: Present on admission and supported by for fever, tachycardia, leukocytosis with bandemia, and soft blood pressures which have improved with IV fluids. Blood cx NGTD, urine cx +pseudomonas, sens pending 11/25: Leukocytosis worsened on Rocephin, escalated to cefepime, MRSA swab pending, worsened as day went on, became hypotensive, abx escalated to vanc + imipenem 11/26: Cont to worsen with leuk, could be just needs more time with imipenem, noted elevated LFTs, likely secondary to sepsis, however, check CT abd + pelvis, RUQ US ordered Pseudomonas growing in urine culture, should be covered by imipenem. MRSA swab pending. (2) Urinary tract infection: Code(s): N39.0 - Urinary tract infection, site not specified Status: Acute Assessment and Plan: Discontinue ceftriaxone started 11/24, start cefepime 11/25, d/c cefepime 11/25, start imipenem, cx showed pseudomonas (3) Urinary retention: Code(s): R33.9 - Retention of urine, unspecified Status: Acute Assessment and Plan: cont leon for now, voiding trial when clinically improved (4) Hyponatremia: Code(s): E87.1 - Hypo-osmolality and hyponatremia Status: Acute Assessment and Plan: Urine and serum osmolalities, TSH, and urine sodium and urea have been ordered and are pending. Gentle IVF at 75 ml/hr, sodium was 119 at presentation, improved rapidly to 127, IVF rate slowed and sodium came back down to 123, then 121, cont NS and monitor sodium this afternoon 11/26: sodium 122 today on NS 125 ml/hr, monitor (5) Protein calorie malnutrition: Code(s): E46 - Unspecified protein-calorie malnutrition Status: Acute Assessment and Plan: Dietitian consult appreciated. (6) Diastolic dysfunction: Code(s): I51.89 - Other ill-defined heart diseases Status: Acute Assessment and Plan: EF was greater than 70% on recent echocardiogram. dopplers negative for DVT (7) Hypothyroidism (acquired): Code(s): E03.9 - Hypothyroidism, unspecified Status: Acute Assessment and Plan: Continue levothyroxine, TSH 0.8 (8) Elevated liver enzymes: Code(s): R74.8 - Abnormal levels of other serum enzymes Status: Acute Assessment and Plan: LFTs cont to worsen, likely d/t sepsis Check RUQ US + Ct abd/pelvis, hepatitis panel pending Plan DVT prophylaxis with lovenox GI prophylaxis with PPI Code status DNR Subjective Date/time seen: 11/26/22 11:56 Interval history: 82-year-old female with history of carotid artery stenosis, [facility] and found to have UTI with sepsis. No overnight events noted. No chest pain or shortness of breath. No nausea, vomiting or diarrhea. No fevers or chills. Patient is much more alert oriented today, less confused. Review of Systems Review of Systems: 12 point review of systems was assessed and was negative except as noted in the HPI Exam Narrative: General: No acute distress, alert and oriented per baseline HEENT: Atraumatic, normocephalic, mucous membranes dry CV: Regular rate and rhythm, S1, S2 Lungs: Mostly clear to auscultation throughout, somewhat diminished at bases with bibasilar crackles noted Abdomen: Soft, nontender, nondistended Extremities: Normal to inspection Skin: No rashes noted, no lesions or wounds seen Psych: Euthymic, appropriate affect Objective Data Vital Signs Vital Signs: Vital Signs - 24 hr 11/25/22 12:00 11/25/22 16:00 11/25/22 16:00 Temperature 99.8 F H 98.7 F Pulse Rate 98 67 Respiratory Rate 22 H 18 Blood Pressure 93/46 L 81/47 L Pulse Oximetry 94 97 Oxygen Delivery Room Air 11/25/22 20:00 11/25/22 20:00 11/25/22 20:00 Temperature 97
[2022-11-26] MEDS: metroNIDAZOLE 500 MG/ISO 100ML 500 MG/100 ML BAG 100 MG IVPB (13:12)
[2022-11-26 14:18] LABS: Hepatitis B Surface Antigen Negative (Negative)
[2022-11-26 14:24] LABS: HAV RESULT Negative (Negative); Hepatitis B Core IgM Result Negative (Negative)
[2022-11-26 14:35] LABS: Hepatitis C Virus Antibody Negative (Negative)
[2022-11-26] MEDS: ENOXAPARIN 30 MG/0.3 ML SYRINGE SUB-Q (15:48)
[2022-11-26] MEDS: PANTOPRAZOLE SODIUM IV 40 MG VIAL IV PUSH (15:48)
[2022-11-26] MEDS: ACETAMINOPHEN 325 MG TABLET 650 MG PO (17:56)
[2022-11-26] MEDS: ATORVASTATIN 10 MG TABLET PO (17:56)
[2022-11-26] MEDS: GABAPENTIN 100 MG CAPSULE 200 MG PO (20:49)
[2022-11-27] VITALS (14 sets, daily range): BP systolic 97–177; BP diastolic 54–84; PULSE 66–104; RESP 15–20; TEMP 36.1–36.8; O2SAT 96–99
[2022-11-27] MEDS: SODIUM CHLORIDE 0.9% IV 1,000 ML 125 ML IV CONT (02:10)
[2022-11-27] MEDS: LEVOTHYROXINE SODIUM 75 MCG TABLET PO (05:13)
[2022-11-27] MEDS: ACETAMINOPHEN 325 MG TABLET 650 MG PO ×2 (05:13→20:05)
[2022-11-27 05:46] LABS: Hematocrit 33.9 % (37.0-47.0); Hemoglobin 11.6 g/dL (12.0-15.0); Mean Corpuscular HGB Conc 34.2 g/dl (32-36); Mean Corpuscular Hemoglobin 28.9 pg (26-34); Mean Corpuscular Volume 84.3 fl (80-100); Mean Platelet Volume 10.2 fl (7.4-10.4); Platelet Count Result 239 k/mm3 (150-375); Red Blood Count 4.02 M/mm3 (4.2-5.4); White Blood Count 23.5 K/mm3 (4.5-10.0)
[2022-11-27 05:56] LABS: Alanine Aminotransferase 45 U/L (6-35); Albumin Level 2.5 g/dL (3.5-5.1); Alkaline Phosphatase 110 U/L (38-126); Anion Gap 2 mmol/L (8-16); Aspartate Amino Transferase 97 U/L (14-36); Bilirubin,Total 0.6 mg/dL (0.2-1.3); Blood Urea Nitrogen 17 mg/dL (7-17); Calcium 7.2 mg/dL (8.4-10.2); Carbon Dioxide 26 mmol/L (22-30); Chloride 98 mmol/L (98-107); Estimated CRCL calculation 46 ml/min; Estimated Glomerular Filt Rate > 60; Glucose 89 mg/dL (65-110); Potassium 4.2 mmol/L (3.4-5.0); Sodium 126 mmol/L (137-145)
[2022-11-27 08:24] LABS: Band Neutrophils Percent 14 % (0-6); Burr Cells 1+ (NORMAL); Large Platelets Present; Lymphocytes Absolute Manual 0.23 K/mm3 (1.1-4.5); Monocytes Absolute Manual 1.41 K/mm3 (0.1-0.90); Monocytes Percent Manual 6 % (3-9); Neutrophils Absolute Manual 21.85 K/mm3 (1.7-7.2); Neutrophils Percent Manual 79 % (46-73); Platelet Estimate Adequate (Adequate); Schistocytes None Seen (NORMAL); Total Cells Counted 100
[2022-11-27] MEDS: TAMSULOSIN HCL 0.4 MG CAPSULE PO (09:11)
[2022-11-27] MEDS: DORZOLAMIDE HCL 2% OPHTH DROPS 1 DROP LEFT EYE ×2 (09:11→19:50)
[2022-11-27] MEDS: GABAPENTIN 100 MG CAPSULE PO (09:11)
[2022-11-27] MEDS: TIMOLOL MALEATE 0.5% OP SOLN 5 ML BOTTLE 1 DROP LEFT EYE ×2 (09:11→19:50)
[2022-11-27] MEDS: CLOPIDOGREL BISULFATE 75 MG TABLET PO (09:11)
--- NOTE | 2022-11-27 09:42 | PM.IMPN ---
Progress Note: A&P Assessment and Plan (1) Sepsis: Code(s): A41.9 - Sepsis, unspecified organism Status: Acute Assessment and Plan: Present on admission and supported by for fever, tachycardia, leukocytosis with bandemia, and soft blood pressures which have improved with IV fluids. Blood cx NGTD, urine cx +pseudomonas, sens pending 11/25: Leukocytosis worsened on Rocephin, escalated to cefepime, MRSA swab pending, worsened as day went on, became hypotensive, abx escalated to vanc + imipenem 11/26: Cont to worsen with leuk, could be just needs more time with imipenem, noted elevated LFTs, likely secondary to sepsis, however, check CT abd + pelvis, RUQ US ordered, dose of flagyl given x 1 until US came back negative. Pseudomonas growing in urine culture, should be covered by imipenem. MRSA swab pending. 11/27: Leuk cont to worsen, pseud sens to imipenem noted on urine culture, blood cx NGTD, MRSA swab negative. CT abd + pelvis showed GB thickening, hydronephrosis, urology consult pending, RUQ US non acute. Cont vanc + imipenem + add flagyl back to cover more anaerobes...? Leuk could be 2/2 obstructing stone? Abscess? Check renal US. Update: Spoke with urology, renal US essentially non acute and unchanged, no significant blockage, no need for stent, cont flomax, abx as above (2) Urinary tract infection: Code(s): N39.0 - Urinary tract infection, site not specified Status: Acute Assessment and Plan: Discontinue ceftriaxone started 11/24, start cefepime 11/25, d/c cefepime 11/25, start imipenem, cx showed pseudomonas, sens to imipenem (3) Urinary retention: Code(s): R33.9 - Retention of urine, unspecified Status: Acute Assessment and Plan: cont leon for now, voiding trial when clinically improved appreciate urology consult (4) Hyponatremia: Code(s): E87.1 - Hypo-osmolality and hyponatremia Status: Acute Assessment and Plan: Urine and serum osmolalities, TSH, and urine sodium and urea have been ordered and are pending. Gentle IVF at 75 ml/hr, sodium was 119 at presentation, improved rapidly to 127, IVF rate slowed and sodium came back down to 123, then 121, cont NS and monitor sodium this afternoon 11/27: sodium 126 today on NS 125 ml/hr, monitor (5) Protein calorie malnutrition: Code(s): E46 - Unspecified protein-calorie malnutrition Status: Acute Assessment and Plan: Dietitian consult appreciated. (6) Diastolic dysfunction: Code(s): I51.89 - Other ill-defined heart diseases Status: Acute Assessment and Plan: EF was greater than 70% on recent echocardiogram. dopplers negative for DVT (7) Hypothyroidism (acquired): Code(s): E03.9 - Hypothyroidism, unspecified Status: Acute Assessment and Plan: Continue levothyroxine, TSH 0.8 (8) Elevated liver enzymes: Code(s): R74.8 - Abnormal levels of other serum enzymes Status: Acute Assessment and Plan: LFTs cont to worsen, likely d/t sepsis, monitor, hold statin, COVID negative RUQ US + CT abd/pelvis negative for intra-abdominal process Hepatitis panel negative Plan DVT prophylaxis with lovenox GI prophylaxis with PPI Code status DNR Subjective Date/time seen: 11/27/22 09:42 Interval history: 82-year-old female with history of carotid artery stenosis, history of breast [facility] and found to have UTI with sepsis. No overnight events noted. No chest pain or shortness of breath. No nausea, vomiting or diarrhea. No fevers or chills. Patient more confused today, thinks that we are experiencing on her, somewhat paranoid. Review of Systems Review of Systems: 12 point review of systems was assessed and was negative except as noted in the HPI Exam Narrative: General: No acute distress, confused HEENT: Atraumatic, normocephalic, mucous membranes dry CV:
--- NOTE | 2022-11-27 10:15 | WPDURCON ---
Assessment and Plan Assessment and plan (1) Urinary tract infection: Code(s): N39.0 - Urinary tract infection, site not specified Status: Acute (2) Ureteral stone with hydronephrosis: Code(s): N13.2 - Hydronephrosis with renal and ureteral calculous obstruction Status: Acute Plan IVF Cont rocephin empirically Urine Cx pending will need cysto right ureteral stent Keep NPO Urology Consult Note HPI Date Seen: 11/27/22 Requesting Physician: Reji Ricci MD Primary Care Provider: Leanne Todd MD Consult Narrative Narrative: This is a pleasant 82-year-old female with hypertension, dyslipidemia, carotid artery stenosis, hypothyroidism, glaucoma, macular degeneration, and history of breast cancer with left upper extremity lymphedema who presented to the emergency department via EMS from [facility] for evaluation of a fever.? Patient provides the following history. Her son and [id number] who are at bedside provides additional history, with the patient's permission. She was discharged to rehab on 10/29/2022 following admission for urinary retention and urinary tract infection several days prior. Her Leon catheter was removed within the past couple of days and that she had been urinating. Family members indicate that she has seemed confused recently and she has become more weak. Today she was increasingly weak and was complaining of nausea. That remains her only complaint. She does not really remember what happened today. She denies headache, cold and flu symptoms, chest pain, vomiting, and dysuria. She has had some issues with bowel incontinence though that has been ongoing since her most recent hospitalization and does not seem to be a new finding. Today staff noted that her color seemed to be off and she was found to be febrile with a temperature of 103.2? F. Pertinent labs included WBC count of 13.4 with 16% bands on automated differential, sodium 129, potassium 4.4, chloride 85, BUN 18, creatinine 1.00. Urine was turbid with 3+ leukocyte esterase, greater than 100 wbc's, and 4+ bacteria. Leon catheter drained 400 mL of urine on insertion. Chest x-ray showed no acute cardiopulmonary process. In the ED she was given acetaminophen for her fever and ceftriaxone for presumed urinary tract infection. Dispite leon cath placement 2 days ago her WBC continue to rise, now [address] scan reveals a 5mm distal right ureteral stone, with hydronephrosis. Review of Systems Constitutional: Constitutional: Reports fatigue, Reports lethargy and Reports poor appetite PMFSH Past Medical History Medical History (Updated 11/27/22 @ 10:36 by Juan Molina MD) Age related osteoporosis Aortic stenosis, mild Arthritis Asymptomatic stenosis of both vertebral arteries Benign essential HTN Bilateral carotid artery stenosis Breast CA CVA, old, facial weakness Diastolic dysfunction Essential (primary) hypertension 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 abnormality Glaucoma Hyperlipidemia Hypothyroidism (acquired) Lymphedema of left upper extremity Macular degeneration Postmenopausal Presbycusis of both ears Vitamin D deficiency Surgical History Surgical History History of left mastectomy Family History Family History Other Hypertension Social History Social History Social History: Surrogate medical decision maker: Mejia Ventura, son. Code status: Full code. Smoking status: Never smoker Second hand tobacco smoke exposure: No Alcohol intake: never Substance use: never Substance use type: does not use Lack of Transportation: No Lack of Food: Never True Current Housing: I Have Housing Concerned About Future Housing: No Difficulty Paying Gas/Electric Bills: No Difficulty Paying for
[2022-11-27] MEDS: metroNIDAZOLE 500 MG/ISO 100ML 500 MG/100 ML BAG 100 MG IVPB ×3 (11:00→21:40)
[2022-11-27] MEDS: ENOXAPARIN 30 MG/0.3 ML SYRINGE SUB-Q (11:00)
[2022-11-27] MEDS: PANTOPRAZOLE SODIUM IV 40 MG VIAL IV PUSH (11:16)
--- NOTE | 2022-11-27 18:55 | PC.NURSE ---
I reviewed the License Pending Therapist's documentation and agree with the findings.
[2022-11-27 19:13] LABS: Osmolality, Urine 280 mOsm/kg (50-1200)
[2022-11-27] MEDS: GABAPENTIN 100 MG CAPSULE 200 MG PO (19:50)
[2022-11-28] VITALS (14 sets, daily range): BP systolic 135–152; BP diastolic 69–91; PULSE 72–106; RESP 16–24; TEMP 36.3–37; O2SAT 97–100
[2022-11-28] MEDS: metroNIDAZOLE 500 MG/ISO 100ML 500 MG/100 ML BAG 100 MG IVPB ×4 (03:20→21:58)
[2022-11-28] MEDS: ACETAMINOPHEN 325 MG TABLET 650 MG PO ×2 (03:25→20:41)
[2022-11-28] MEDS: LEVOTHYROXINE SODIUM 75 MCG TABLET PO (06:16)
[2022-11-28 07:43] LABS: Mean Corpuscular HGB Conc 33.3 g/dl (32-36); Mean Corpuscular Hemoglobin 27.6 pg (26-34); Mean Corpuscular Volume 82.7 fl (80-100); Mean Platelet Volume 10.1 fl (7.4-10.4); Platelet Count Result 249 k/mm3 (150-375); Red Blood Count 3.99 M/mm3 (4.2-5.4); White Blood Count 15.8 K/mm3 (4.5-10.0)
[2022-11-28 07:59] LABS: Alanine Aminotransferase 40 U/L (6-35); Albumin Level 2.3 g/dL (3.5-5.1); Alkaline Phosphatase 101 U/L (38-126); Anion Gap 2 mmol/L (8-16); Aspartate Amino Transferase 72 U/L (14-36); Bilirubin,Total 0.6 mg/dL (0.2-1.3); Blood Urea Nitrogen 14 mg/dL (7-17); Calcium 7.4 mg/dL (8.4-10.2); Carbon Dioxide 27 mmol/L (22-30); Chloride 100 mmol/L (98-107); Estimated CRCL calculation 53 ml/min; Estimated Glomerular Filt Rate > 60; Glucose 88 mg/dL (65-110); Potassium 3.8 mmol/L (3.4-5.0); Sodium 129 mmol/L (137-145)
[2022-11-28 08:00] LABS: Magnesium 1.8 mg/dL (1.6-2.3)
[2022-11-28 08:10] LABS: Vancomycin Trough 6.4 ug/mL (10.0-20.0)
[2022-11-28] MEDS: CLOPIDOGREL BISULFATE 75 MG TABLET PO (09:07)
[2022-11-28] MEDS: TAMSULOSIN HCL 0.4 MG CAPSULE PO (09:07)
[2022-11-28] MEDS: PANTOPRAZOLE SODIUM IV 40 MG VIAL IV PUSH (09:07)
[2022-11-28] MEDS: ENOXAPARIN 30 MG/0.3 ML SYRINGE SUB-Q (09:07)
[2022-11-28] MEDS: GABAPENTIN 100 MG CAPSULE PO (09:07)
[2022-11-28] MEDS: TIMOLOL MALEATE 0.5% OP SOLN 5 ML BOTTLE 1 DROP LEFT EYE ×2 (09:08→23:12)
[2022-11-28] MEDS: DORZOLAMIDE HCL 2% OPHTH DROPS 1 DROP LEFT EYE ×2 (09:08→23:12)
[2022-11-28 11:20] LABS: Band Neutrophils Percent 12 % (0-6); Burr Cells 2+ (NORMAL); Lymphocytes Absolute Manual 0.15 K/mm3 (1.1-4.5); Monocytes Absolute Manual 0.79 K/mm3 (0.1-0.90); Monocytes Percent Manual 5 % (3-9); Neutrophils Absolute Manual 14.85 K/mm3 (1.7-7.2); Neutrophils Percent Manual 82 % (46-73); Platelet Estimate Adequate (Adequate); Schistocytes Rare (NORMAL); Total Cells Counted 100
--- NOTE | 2022-11-28 11:44 | WPDUROPN2 ---
Progress Note: A&P Assessment and Plan (1) Urinary tract infection: Code(s): N39.0 - Urinary tract infection, site not specified Status: Acute Assessment and Plan: Pt clinically improving afeb, WBC decreasing Cont abx for Pseudomonas uti (2) Ureteral stone with hydronephrosis: Code(s): N13.2 - Hydronephrosis with renal and ureteral calculous obstruction Status: Acute Assessment and Plan: stone has passed Cr. improving 0.6 no flank pain Subjective Subjective Date/Time Seen: 11/28/22 11:44 Pt comfortable today. afeb Exam Const: General: cooperative, comfortable and no acute distress GI: GI Palp: Yes Soft to palpation Urinary Catheter: Urinary Catheter: patent and draining and urine clear Objective Data Vital Signs Vital Signs: Vital Signs - 24 hr 11/27/22 12:00 11/27/22 12:00 11/27/22 12:00 Temperature 36.5 C Pulse Rate 79 82 Respiratory Rate 15 Blood Pressure 118/58 L Pulse Oximetry 99 Oxygen Delivery Room Air 11/27/22 14:00 11/27/22 16:00 11/27/22 18:00 Temperature Pulse Rate 90 95 104 H Respiratory Rate Blood Pressure Pulse Oximetry Oxygen Delivery 11/27/22 16:00 11/27/22 16:00 11/27/22 20:02 Temperature 36.8 C 36.6 C Pulse Rate 90 101 H Respiratory Rate 20 20 Blood Pressure 177/84 H 124/80 Pulse Oximetry 98 96 Oxygen Delivery Room Air 11/27/22 20:00 11/27/22 20:00 11/27/22 22:00 Temperature Pulse Rate 104 H 81 Respiratory Rate Blood Pressure Pulse Oximetry Oxygen Delivery Room Air 11/27/22 23:42 11/28/22 00:00 11/28/22 00:00 Temperature 36.5 C Pulse Rate 84 87 Respiratory Rate 20 Blood Pressure 113/62 Pulse Oximetry 98 Oxygen Delivery Room Air 11/28/22 02:00 11/28/22 03:42 11/28/22 04:00 Temperature 36.4 C L Pulse Rate 73 98 Respiratory Rate 20 Blood Pressure 140/81 Pulse Oximetry 97 Oxygen Delivery Room Air 11/28/22 04:00 11/28/22 06:00 11/28/22 08:00 Temperature 36.3 C L Pulse Rate 73 99 106 H Respiratory Rate 24 H Blood Pressure 152/91 H Pulse Oximetry 100 Oxygen Delivery Intake/Output Intake/Output: Intake & Output 11/25/22 11/26/22 11/27/22 11/28/22 23:59 23:59 23:59 23:59 Intake Total 3550 3566 3500 1040 Output Total 850 1450 3175 1500 Balance 2700 2116 325 -460 Meds/Results Medications: Active Medications Generic Name Dose Route Start Last Admin Trade Name Freq PRN Reason Stop Dose Admin Acetaminophen 650 mg 11/24/22 21:43 11/28/22 03:25 Acetaminophen 325 Mg Tablet PO 650 mg Q6H PRN Administration Mild Pain (1-3) or Fever Atorvastatin Calcium 10 mg 11/24/22 22:00 11/26/22 17:56 Atorvastatin 10 Mg Tablet PO 10 mg QPM MUSTAPHA Administration Calcium Carbonate 500 mg 11/25/22 09:00 11/28/22 09:08 Calcium/Vitamin D 500 Mg Tablet PO 500 mg BID MUSTAPHA Administration Clopidogrel Bisulfate 75 mg 11/25/22 09:00 11/28/22 09:07 Clopidogrel Bisulfate 75 Mg Tablet PO 75 mg DAILY MUSTAPHA Administration Dorzolamide HCl 1 drop 11/24/22 22:05 11/28/22 09:08 Dorzolamide Hcl 2% Ophth Drops LEFT EYE 1 drop Q12HR MUSTAPHA Administration Enoxaparin Sodium 30 mg 11/26/22 12:15 11/28/22 09:07 Enoxaparin 30 Mg/0.3 Ml Syringe SUB-Q 30 mg DAILY MUSTAPHA Administration Gabapentin 100 mg 11/25/22 09:00 11/28/22 09:07 Gabapentin 100 Mg Capsule PO 100 mg DAILY MUSTAPHA Administration Gabapentin 200 mg 11/24/22 22:05 11/27/22 19:50 Gabapentin 100 Mg Capsule PO 200 mg HS MUSTAPHA Administration Imipenem/Cilastatin Sodium 500 mg in 100 mls @ 300 mls/hr 11/25/22 19:00 11/28/22 03:03 Primaxin 500 Mg/Ns 100 Ml IVPB Infused Q8H MUSTAPHA Infusion Metronidazole 500 mg in 100 mls @ 100 mls/hr 11/27/22 10:00 11/28/22 04:49 Flagyl 500 Mg/Iso Soln 100 Ml IVPB Infused Q6H MUSTAPHA Infusion Vancomycin HCl 1,250 mg in 250 mls @ 250 mls/hr 11/28/22 09:00 11/28/22 09:
--- NOTE | 2022-11-28 11:51 | PM.IMPN ---
Progress Note: A&P Assessment and Plan (1) Sepsis: Code(s): A41.9 - Sepsis, unspecified organism Status: Acute Assessment and Plan: 11/24: Present on admission and supported by for fever, tachycardia, leukocytosis with bandemia, and soft blood pressures which have improved with IV fluids. Blood cx NGTD, urine cx +pseudomonas, pansens 11/25: Leukocytosis worsened on Rocephin, escalated to cefepime, MRSA swab pending, worsened as day went on, became hypotensive, abx escalated to vanc + imipenem 11/26: Cont to worsen with leuk, could be just needs more time with imipenem, noted elevated LFTs, likely secondary to sepsis, however, check CT abd + pelvis, RUQ US ordered, dose of flagyl given x 1 until US came back negative. Pseudomonas growing in urine culture, should be covered by imipenem. MRSA swab pending. 11/27: Leuk cont to worsen, pseud sens to imipenem noted on urine culture, blood cx NGTD, MRSA swab negative. CT abd + pelvis showed GB thickening, hydronephrosis, urology consult pending, RUQ US non acute. Cont vanc + imipenem + add flagyl back to cover more anaerobes...? Leuk could be 2/2 obstructing stone? Abscess? Check renal US. Update: Spoke with urology, renal US essentially non acute and unchanged, no significant blockage, no need for stent, cont flomax, abx as above 11/28: Patient looks much better clinically today. Leuk came down significantly after adding flagyl, not sure if this means there is an anaerobic source or she just needed more time on the antibiotics for her pseudomonas infection? Either way, no changes to the abx regimen made today. (2) Urinary tract infection: Code(s): N39.0 - Urinary tract infection, site not specified Status: Acute Assessment and Plan: Discontinue ceftriaxone started 11/24, start cefepime 11/25, d/c cefepime 11/25, start imipenem, cx showed pseudomonas, sens to imipenem see above for details (3) Urinary retention: Code(s): R33.9 - Retention of urine, unspecified Status: Acute Assessment and Plan: cont leon for now, voiding trial when clinically improved appreciate urology consult (4) Hyponatremia: Code(s): E87.1 - Hypo-osmolality and hyponatremia Status: Acute Assessment and Plan: Urine and serum osmolalities, TSH, and urine sodium and urea have been ordered and are pending. Gentle IVF at 75 ml/hr, sodium was 119 at presentation, improved rapidly to 127, IVF rate slowed and sodium came back down to 123, then 121, cont NS and monitor sodium this afternoon 11/28: sodium improving to 129 today, IVF d/c yesterday, cont to monitor off IVF (5) Protein calorie malnutrition: Code(s): E46 - Unspecified protein-calorie malnutrition Status: Acute Assessment and Plan: Dietitian consult appreciated. (6) Diastolic dysfunction: Code(s): I51.89 - Other ill-defined heart diseases Status: Acute Assessment and Plan: EF was greater than 70% on recent echocardiogram. dopplers negative for DVT (7) Hypothyroidism (acquired): Code(s): E03.9 - Hypothyroidism, unspecified Status: Acute Assessment and Plan: Continue levothyroxine, TSH 0.8 (8) Elevated liver enzymes: Code(s): R74.8 - Abnormal levels of other serum enzymes Status: Acute Assessment and Plan: LFTs cont to fluctuate, likely d/t sepsis, monitor, hold statin, COVID negative RUQ US + CT abd/pelvis negative for intra-abdominal process Hepatitis panel negative Plan DVT prophylaxis with lovenox GI prophylaxis with PPI Code status DNR Subjective Date/time seen: 11/28/22 11:51 Interval history: 82-year-old female with history of carotid artery stenosis, history of breast cancer is presenting from [facility] for fever and found to have UTI with sepsis. No overnight events noted. No chest pain or shortness of breath. No nausea, vomiting or diarrhea. No fevers
[2022-11-28] MEDS: GABAPENTIN 100 MG CAPSULE 200 MG PO (20:42)
[2022-11-29] VITALS (15 sets, daily range): BP systolic 119–148; BP diastolic 51–92; PULSE 60–102; RESP 14–21; TEMP 36.3–36.7; O2SAT 96–100
--- NOTE | 2022-11-29 | ECHOL_ITS ---
Patient Info Name: Marcus Ventura Age: 82 years : 1940 Gender: Female Ht: 64 in Wt: 145 lbs BSA: 1.73 m2 HR: 80 bpm BP: 144 / 75 mmHg Heart Rhythm: Sinus Rhythm Technical Quality: Fair Exam Date: 11/29/2022 9:11 AM Exam Location: [facility] Patient Status: Inpatient Admit Date: 11/25/2022 Staff Ordering Physician: Stacey Caal DO Viscosity Tester: Anju Reilly RDCS Attending Provider: Reji Ricci MD Referring Physician: Ten CABRERA; Exam Type: CA echo limited Study Info Indications - sepsis, crackles, edema Limited two-dimensional transthoracic echocardiogram is performed. Summary 1. Limited echocardiogram to assess LV function. 2. The left ventricular diastolic function is indeterminate as it is not assessed. 3. Left ventricular chamber dimension is normal. 4. Left ventricular systolic function is hyperdynamic, estimated at >70%. 5. There is mild concentric increased left ventricular wall thickness. Left Ventricle The left ventricular diastolic function is indeterminate as it is not assessed. Limited echocardiogram to assess LV function. Left ventricular chamber dimension is normal. Left ventricular systolic function is hyperdynamic, estimated at >70%. There is mild concentric increased left ventricular wall thickness. Ventricles Name Value Normal LV Fractional Shortening/Ejection Fraction 2D/MM LV Diastolic Volume (4C MOD) 33 ml LV EF (4C MOD) 77 % LV Diastolic Volume (2C MOD) 26 ml LV EF (2C MOD) 80 % LV Diastolic Volume (BP MOD) 29 ml 46-106 LV Diastolic Volume Index (BP MOD) 17 ml/m2 29-61 LV Systolic Volume (BP MOD) 6 ml 14-42 LV Systolic Volume Index (BP MOD) 4 ml/m2 8-24 LV EF (BP MOD) 78 % 54-74 LV Diastolic Length (4C) 6.5 cm LV Systolic Length (4C) 4.8 cm LV Stroke Volume (4C MOD) 25 ml Report Signatures
[2022-11-29] MEDS: metroNIDAZOLE 500 MG/ISO 100ML 500 MG/100 ML BAG 300 MG IVPB (04:06)
[2022-11-29] MEDS: LEVOTHYROXINE SODIUM 75 MCG TABLET PO (06:09)
[2022-11-29 08:09] LABS: Alanine Aminotransferase 46 U/L (6-35); Albumin Level 2.3 g/dL (3.5-5.1); Alkaline Phosphatase 113 U/L (38-126); Anion Gap 4 mmol/L (8-16); Aspartate Amino Transferase 89 U/L (14-36); Bilirubin,Total 0.7 mg/dL (0.2-1.3); Blood Urea Nitrogen 12 mg/dL (7-17); Calcium 7.4 mg/dL (8.4-10.2); Carbon Dioxide 30 mmol/L (22-30); Chloride 99 mmol/L (98-107); Estimated CRCL calculation 53 ml/min; Estimated Glomerular Filt Rate > 60; Glucose 81 mg/dL (65-110); Potassium 3.8 mmol/L (3.4-5.0); Sodium 133 mmol/L (137-145)
[2022-11-29 08:24] LABS: Basophils Absolute Auto 0.1 K/mm3 (0.0-0.1); Basophils Percent Auto 0.5 % (0.2-1.2); Eosinophils Absolute Auto 0.1 K/mm3 (0-0.3); Eosinophils Percent Auto 0.5 % (0-4.4); Hemoglobin 11.5 g/dL (12.0-15.0); Immature Granulocyte Percent A 2.1 % (0-0.5); Lymphocytes Absolute Auto 0.81 K/mm3 (0.9-3.2); Lymphocytes Percent Auto 5.7 % (18.3-44.2); Mean Corpuscular HGB Conc 33.8 g/dl (32-36); Mean Corpuscular Volume 82.9 fl (80-100); Mean Platelet Volume 9.9 fl (7.4-10.4); Neutrophils Absolute Auto 11.9 K/mm3 (1.3-6.7); Neutrophils Percent Auto 84.2 % (45.5-73.1); Platelet Count Result 306 k/mm3 (150-375); Red Cell Distribution Width 16.2 % (11.5-14.5); White Blood Count 14.1 K/mm3 (4.5-10.0)
[2022-11-29 08:57] LABS: Vancomycin Trough 14.5 ug/mL (10.0-20.0)
[2022-11-29] MEDS: TAMSULOSIN HCL 0.4 MG CAPSULE PO (09:02)
[2022-11-29] MEDS: GABAPENTIN 100 MG CAPSULE PO (09:02)
[2022-11-29] MEDS: CLOPIDOGREL BISULFATE 75 MG TABLET PO (09:02)
[2022-11-29] MEDS: DORZOLAMIDE HCL 2% OPHTH DROPS 1 DROP LEFT EYE ×2 (09:02→20:05)
[2022-11-29] MEDS: PANTOPRAZOLE SODIUM IV 40 MG VIAL IV PUSH (09:02)
[2022-11-29] MEDS: TIMOLOL MALEATE 0.5% OP SOLN 5 ML BOTTLE 1 DROP LEFT EYE ×2 (09:02→20:05)
[2022-11-29] MEDS: metroNIDAZOLE 500 MG/ISO 100ML 500 MG/100 ML BAG 100 MG IVPB (09:03)
[2022-11-29] MEDS: ENOXAPARIN 30 MG/0.3 ML SYRINGE SUB-Q (09:03)
--- NOTE | 2022-11-29 09:50 | P.PNIM_ITS ---
Progress Note: A&P Assessment and Plan (1) Sepsis: Code(s): A41.9 - Sepsis, unspecified organism Status: Acute Assessment and Plan: 11/24: Present on admission and supported by fever, tachycardia, leukocytosis w ith bandemia, and soft blood pressures which have improved with IV fluids. Blood cx NGTD, urine cx +pseudomonas, pansens, started on rocephin 11/25: Leukocytosis worsened on Rocephin, escalated to cefepime, MRSA swab pending, worsened as day went on, became hypotensive, abx escalated to vanc + imipenem 11/26: Cont to worsen with leuk, could be just needs more time with imipenem, noted elevated LFTs, likely secondary to sepsis, however, check CT abd + pelvis, RUQ US ordered, dose of flagyl given x 1 until US came back negative. Pseudomonas growing in urine culture, should be covered by imipenem. MRSA swab pending. 11/27: Leuk cont to worsen, pseud sens to imipenem noted on urine culture, blood cx NGTD, MRSA swab negative. CT abd + pelvis showed GB thickening, hydronephrosis, urology consult pending, RUQ US non acute. Cont vanc + imipenem + add flagyl back to cover more anaerobes...? Leuk could be 2/2 obstructing stone? Abscess? Check renal US. Update: Spoke with urology, renal US essentially non acute and unchanged, no significant blockage, no need for stent, cont flomax, abx as above 11/28: Patient looks much better clinically today. Leuk came down significantly after adding flagyl, not sure if this means there is an anaerobic source or she just needed more time on the antibiotics for her pseudomonas infection? Either way, no changes to the abx regimen made today. 11/29: Leuk down to 14, sepsis essentially resolved, day 5 of imipenem, day 3 of flagyl, will d/c vanc today and make flagyl po, d/c imipenem and start levaquin po, end date for levaquin to complete a 7 day course would be 12/01, and 7 days of flagyl will be 12/03 (2) Urinary tract infection: Code(s): N39.0 - Urinary tract infection, site not specified Status: Acute Assessment and Plan: Discontinue ceftriaxone started 11/24, start cefepime 11/25, d/c cefepime 11/25, start imipenem, cx showed pseudomonas, sens to imipenem, transtion to oral levaquin 11/29 to complete a 7 day course end date 12/01 see above for details (3) Urinary retention: Code(s): R33.9 - Retention of urine, unspecified Status: Acute Assessment and Plan: Continue Solis, voiding trial when appropriate per Urology, appreciate urology consult (4) Hyponatremia: Code(s): E87.1 - Hypo-osmolality and hyponatremia Status: Acute Assessment and Plan: Urine and serum osmolalities, TSH, and urine sodium and urea have been ordered and are pending. Gentle IVF at 75 ml/hr, sodium was 119 at presentation, improved rapidly to 127, IVF rate slowed and sodium came back down to 123, then 121, cont NS and monitor sodium this afternoon 11/28: sodium improving to 129 today, IVF d/c yesterday, cont to monitor off IVF 11/29: sodium up to 133 (5) Protein calorie malnutrition: Code(s): E46 - Unspecified protein-calorie malnutrition Status: Acute Assessment and Plan: Dietitian consult appreciated. (6) Diastolic dysfunction: Code(s): I51.89 - Other ill-defined heart diseases Status: Acute Assessment and Plan: EF was greater than 70% on recent echocardiogram. dopplers negative for DVT (7) Hypothyroidism (acquired): Code(s): E03.9 - Hypothyroidism, unspecified Status: Acute Assessment and Plan: Continue levothyroxi
[2022-11-29] MEDS: metroNIDAZOLE 250 MG TABLET 500 MG PO ×2 (16:53→23:41)
[2022-11-29] MEDS: levoFLOXacin 750 MG TABLET PO (16:53)
[2022-11-29] MEDS: GABAPENTIN 100 MG CAPSULE 200 MG PO (20:06)
[2022-11-30] VITALS (9 sets, daily range): BP systolic 124–130; BP diastolic 64–66; PULSE 67–102; RESP 16–20; TEMP 36.2–36.6; O2SAT 94–97
[2022-11-30 05:14] LABS: Basophils Absolute Auto 0.1 K/mm3 (0.0-0.1); Basophils Percent Auto 0.4 % (0.2-1.2); Eosinophils Absolute Auto 0.1 K/mm3 (0-0.3); Eosinophils Percent Auto 0.5 % (0-4.4); Hematocrit 33.9 % (37.0-47.0); Hemoglobin 11.5 g/dL (12.0-15.0); Immature Granulocyte Absolute 0.32 K/mm3 (0.00-0.031); Immature Granulocyte Percent A 2.4 % (0-0.5); Lymphocytes Percent Auto 7.5 % (18.3-44.2); Mean Corpuscular HGB Conc 33.9 g/dl (32-36); Mean Corpuscular Hemoglobin 27.7 pg (26-34); Mean Corpuscular Volume 81.7 fl (80-100); Mean Platelet Volume 9.9 fl (7.4-10.4); Monocytes Absolute Auto 0.9 K/mm3 (0.1-0.6); Monocytes Percent Auto 6.6 % (2.6-8.5); Neutrophils Percent Auto 82.6 % (45.5-73.1); Platelet Count Result 338 k/mm3 (150-375); Red Blood Count 4.15 M/mm3 (4.2-5.4); Red Cell Distribution Width 16.1 % (11.5-14.5); White Blood Count 13.4 K/mm3 (4.5-10.0)
[2022-11-30 05:25] LABS: Alanine Aminotransferase 41 U/L (6-35); Albumin Level 2.4 g/dL (3.5-5.1); Alkaline Phosphatase 116 U/L (38-126); Anion Gap 0 mmol/L (8-16); Aspartate Amino Transferase 68 U/L (14-36); Bilirubin,Total 0.6 mg/dL (0.2-1.3); Blood Urea Nitrogen 10 mg/dL (7-17); Calcium 7.9 mg/dL (8.4-10.2); Carbon Dioxide 32 mmol/L (22-30); Chloride 99 mmol/L (98-107); Estimated CRCL calculation 62 ml/min; Estimated Glomerular Filt Rate > 60; Glucose 85 mg/dL (65-110); Potassium 4.1 mmol/L (3.4-5.0); Sodium 131 mmol/L (137-145)
[2022-11-30] MEDS: LEVOTHYROXINE SODIUM 75 MCG TABLET PO (06:32)
[2022-11-30] MEDS: metroNIDAZOLE 250 MG TABLET 500 MG PO ×2 (06:32→10:52)
--- NOTE | 2022-11-30 09:11 | PM.DS ---
DS: Admitting Diagnosis Discharge Date 11/30/2022 Admitting Diagnosis Fever DS: Discharge Diagnosis Discharge Diagnosis (1) Sepsis: Code(s): A41.9 - Sepsis, unspecified organism Status: Acute Assessment and Plan: 11/24: Present on admission and supported by fever, tachycardia, leukocytosis with bandemia, and soft blood pressures which have improved with IV fluids. Blood cx NGTD, urine cx +pseudomonas, pansens, started on rocephin 11/25: Leukocytosis worsened on Rocephin, escalated to cefepime, MRSA swab pending, worsened as day went on, became hypotensive, abx escalated to vanc + imipenem 11/26: Cont to worsen with leuk, could be just needs more time with imipenem, noted elevated LFTs, likely secondary to sepsis, however, check CT abd + pelvis, RUQ US ordered, dose of flagyl given x 1 until US came back negative. Pseudomonas growing in urine culture, should be covered by imipenem. MRSA swab pending. 11/27: Leuk cont to worsen, pseud sens to imipenem noted on urine culture, blood cx NGTD, MRSA swab negative. CT abd + pelvis showed GB thickening, hydronephrosis, urology consult pending, RUQ US non acute. Cont vanc + imipenem + add flagyl back to cover more anaerobes...? Leuk could be 2/2 obstructing stone? Abscess? Check renal US. Update: Spoke with urology, renal US essentially non acute and unchanged, no significant blockage, no need for stent, cont flomax, abx as above 11/28: Patient looks much better clinically today. Leuk came down significantly after adding flagyl, not sure if this means there is an anaerobic source or she just needed more time on the antibiotics for her pseudomonas infection? Either way, no changes to the abx regimen made today. 11/29: Leuk down to 14, sepsis essentially resolved, day 5 of imipenem, day 3 of flagyl, will d/c vanc today and make flagyl po, d/c imipenem and start levaquin po, end date for levaquin to complete a 7 day course would be 12/01, and 7 days of flagyl will be 12/03 (2) Urinary tract infection: Code(s): N39.0 - Urinary tract infection, site not specified Status: Acute Assessment and Plan: Discontinue ceftriaxone started 11/24, start cefepime 11/25, d/c cefepime 11/25, start imipenem, cx showed pseudomonas, sens to imipenem, transtion to oral levaquin 11/29 to complete a 7 day course end date 12/01 see above for details (3) Urinary retention: Code(s): R33.9 - Retention of urine, unspecified Status: Acute Assessment and Plan: Continue Solis, voiding trial when appropriate per Urology, appreciate urology consult (4) Hyponatremia: Code(s): E87.1 - Hypo-osmolality and hyponatremia Status: Acute Assessment and Plan: Urine and serum osmolalities, TSH, and urine sodium and urea have been ordered and are pending. Gentle IVF at 75 ml/hr, sodium was 119 at presentation, improved rapidly to 127, IVF rate slowed and sodium came back down to 123, then 121, cont NS and monitor sodium this afternoon 11/28: sodium improving to 129 today, IVF d/c yesterday, cont to monitor off IVF 11/29: sodium up to 133 (5) Protein calorie malnutrition: Code(s): E46 - Unspecified protein-calorie malnutrition Status: Acute Assessment and Plan: Dietitian consult appreciated. (6) Diastolic dysfunction: Code(s): I51.89 - Other ill-defined heart diseases Status: Acute Assessment and Plan: EF was greater than 70% on recent echocardiogram. dopplers negative for DVT (7) Hypothyroidism (acquired): Code(s): E03.9 - Hypothyroidism, unspecified Status: Acute Assessment and Plan: Continue levothyroxine, TSH 0.8 (8) Elevated liver enzymes: Code(s): R74.8 - Abnormal levels of other serum enzymes Status: Acute Assessment and Plan: Elevated LFTs likely d/t sepsis, hold statin, COVID negative RUQ US + CT abd/pelvis negative for intra-abdominal process Hepatitis pane
[2022-11-30] MEDS: TIMOLOL MALEATE 0.5% OP SOLN 5 ML BOTTLE 1 DROP LEFT EYE (10:51)
[2022-11-30] MEDS: levoFLOXacin 750 MG TABLET PO (10:52)
[2022-11-30] MEDS: CLOPIDOGREL BISULFATE 75 MG TABLET PO (10:52)
[2022-11-30] MEDS: PANTOPRAZOLE SODIUM IV 40 MG VIAL IV PUSH (10:52)
[2022-11-30] MEDS: ENOXAPARIN 30 MG/0.3 ML SYRINGE SUB-Q (10:52)
[2022-11-30] MEDS: DORZOLAMIDE HCL 2% OPHTH DROPS 1 DROP LEFT EYE (10:52)
[2022-11-30] MEDS: TAMSULOSIN HCL 0.4 MG CAPSULE PO (10:53)
[2022-11-30] MEDS: GABAPENTIN 100 MG CAPSULE PO (11:07)
[2022-11-30 15:10] LABS: EDCOVIDSCREEN Negative (Negative)
== END 2022-11-30 15:15 | DRG 872 ==
LOC: ANHED 16:59 → ANHLDR 19:41 → ANHIMU 20:15
PROVIDERS: Internal Medicine; Physician Assistant; Admitting Provider Internal Medicine; Emergency Provider Emergency Medicine; PCP Family Medicine; Visit Provider Student in an Organized Health Care Education/Training Program
DX: A41.52 Sepsis due to Pseudomonas (principal); E87.1 Hypo-osmolality and hyponatremia; E46 Unspecified protein-calorie malnutrition; N13.6 Pyonephrosis; I51.89 Other ill-defined heart diseases; E03.9 Hypothyroidism, unspecified; H35.30 Unspecified macular degeneration; Z20.822 Contact with and (suspected) exposure to COVID-19
CPT/HCPCS: 36415; 36569; 51702; 71045; 71250; 74176; 76705; 76775; 80048; 80053; 80074; 80202; 81001; 82570; 83605; 83735; 83930; 83935; 84145; 84295; 84300; 84443; 84540; 85025; 85027; 87040; 87077; 87081; 87086; 87186; 87426; 93005; 93308; 93970; 96361; 96365; 96375; 99285; A9270; C1751; C9113; C9803; G0378; J0692; J0696; J0743; J1650; J2405; J3370; J7030

== ENCOUNTER 2023-01-27 09:06 | Outpatient (CLI) | payer MEDICARE, SELFPAY ==
[2023-01-27 09:48] LABS: Basophils Percent Auto 0.5 % (0.2-1.2); Eosinophils Absolute Auto 0.1 K/mm3 (0-0.3); Eosinophils Percent Auto 1.6 % (0-4.4); Hemoglobin 12.9 g/dL (12.0-15.0); Immature Granulocyte Absolute 0.03 K/mm3 (0.00-0.031); Immature Granulocyte Percent A 0.4 % (0-0.5); Lymphocytes Absolute Auto 1.11 K/mm3 (0.9-3.2); Lymphocytes Percent Auto 14.3 % (18.3-44.2); Mean Corpuscular HGB Conc 32.3 g/dl (32-36); Mean Corpuscular Volume 86.8 fl (80-100); Mean Platelet Volume 9.2 fl (7.4-10.4); Monocytes Absolute Auto 0.7 K/mm3 (0.1-0.6); Monocytes Percent Auto 8.8 % (2.6-8.5); Neutrophils Absolute Auto 5.8 K/mm3 (1.3-6.7); Neutrophils Percent Auto 74.4 % (45.5-73.1); Platelet Count Result 279 k/mm3 (150-375); Red Blood Count 4.61 M/mm3 (4.2-5.4); Red Cell Distribution Width 15.6 % (11.5-14.5); White Blood Count 7.7 K/mm3 (4.5-10.0)
[2023-01-27 09:59] LABS: Alanine Aminotransferase 25 U/L (6-35); Albumin Level 3.7 g/dL (3.5-5.1); Alkaline Phosphatase 70 U/L (38-126); Anion Gap 4 mmol/L (8-16); Aspartate Amino Transferase 28 U/L (14-36); Bilirubin,Total 0.7 mg/dL (0.2-1.3); Blood Urea Nitrogen 13 mg/dL (7-17); Calcium 8.8 mg/dL (8.4-10.2); Carbon Dioxide 32 mmol/L (22-30); Chloride 95 mmol/L (98-107); Estimated Glomerular Filt Rate > 60; Glucose 96 mg/dL (65-110); Potassium 4.4 mmol/L (3.4-5.0); Sodium 131 mmol/L (137-145)
[2023-01-27 10:30] LABS: Thyroid Stimulating Hormone 0.932 uIU/mL (0.465-4.680)
== END 2023-01-27 09:07 | disposition home or self-care (01) ==
PROVIDERS: PCP Family Medicine; Visit Provider Family Medicine
DX: E03.9 Hypothyroidism, unspecified (principal); I10 Essential (primary) hypertension
CPT/HCPCS: 36415; 80053; 84443; 85025

== ENCOUNTER 2023-03-01 09:06 | Inpatient (IN) | payer MEDICARE, SELFPAY ==
[2023-03-01] VITALS (10 sets, daily range): BP systolic 116–173; BP diastolic 57–84; PULSE 65–80; RESP 9–18; TEMP 36.2–36.6; O2SAT 97–100; BMI 21.7
--- NOTE | ~2023-03-01 | XR_ITS ---
EXAMINATION: XR chest 1V INDICATION: Weakness and stupor TECHNIQUE: AP view of the chest is obtained. COMPARISON: 11/24/2022 FINDINGS: The lungs are free of acute opacities. No pleural effusion or pneumothorax. The cardiomedia stinal silhouette is normal. IMPRESSION: 1. No acute cardiopulmonary abnormality. Reviewed, dictated and finalized at location L.
--- NOTE | ~2023-03-01 | CT_ITS ---
EXAMINATION: CT cervical spine wo con DATE: 03/01/2023 10:10 INDICATION: Confusion post fall TECHNIQUE: Computed tomography (CT) of the cervical spine was performed without intravenous contrast. Automated exposure control and iterative reconstruction technique were employed. The dose-length pro duct was 135.45 mGy-cm. COMPARISON: Thoracic spine MRI dated 11/21/2022 FINDINGS: Mild reversal of the normal cervical lordosis. Chronic mild superior endplate compression fracture at T4. Vertebral body heights are otherwise normal. No acute fractures. 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 Severe disc height loss with degenerative endplate changes at C4-C5. Moderat e disc height loss at C3-C4, C5-C6 and C6-C7. Mild disc height loss at C2-C3 and C7-T1 through T2-T3. Posterior disc osteophyte complexes and some heterotopic ossification along the posterior longitudin al ligament resulting in moderate central canal stenosis at C5-C6, mild to moderate central canal janet nosis at C4-C5 and mild central canal stenosis at C2-C3, C3-C4 and C6-C7. Multilevel bilateral severe uncovertebral osteoarthritis from C3-C4 through C6-C7. Severe facet osteoarthritis bilaterally at C2 -C3 and with fusion on the left at C3-C4. Mild to moderate facet osteoarthritis the remaining cervica l levels. Together this results in mild neural from stenosis bilaterally at C2-C3 and moderate neural foraminal stenosis bilaterally at C3-C4 through C6-C7. Atherosclerotic calcification is at the bilat eral carotid bulbs. Cervical soft tissues are otherwise unremarkable. Mild left apical pleural-parenc hymal scarring. Subtle mosaic attenuation the upper lungs likely related to expiratory phase of imagi ng. IMPRESSION: 1. Severe cervical spondylosis. No acute osseous abnormality. Reviewed, dictated and finalized at location A.
--- NOTE | ~2023-03-01 | CT_ITS ---
CT head without contrast Indication: Confusion COMPARISON: 10/05/2015 Technique: Serial scans were obtained through the brain without the administration of contrast. Dose reduction technique was used on this scan by utilizing automated exposure control and iterative recon struction technique. The dose-length product (DLP) was 756.67 mGy-cm. Findings: There is no evidence of intracranial hemorrhage, mass lesion, or acute infarct. The ventri cles and subarachnoid spaces are dilated, consistent with mild atrophy. Low attenuation regions are seen within the periventricular white matter bilaterally, likely representing changes from chronic mi crovascular ischemic disease. There is no evidence of edema, mass effect or midline shift. The visu alized paranasal sinuses and mastoid air cells are clear. Impression: No intracranial hemorrhage, mass, or acute infarct. Atrophy and chronic white matter changes, as above. Reviewed, dictated and finalized at location . Impression: No intracranial hemorrhage, mass, or acute infarct. Atrophy and chronic white matter changes, as above.
--- NOTE | ~2023-03-01 | CT_ITS ---
EXAMINATION: CTA BRAIN/CAROTID DATE: 03/05/2023 23:19 INDICATION: Stroke versus transient ischemic episode with acute mental status changes. TECHNIQUE: Computed tomographic angiography (CTA) of the head and neck was performed with 100 mL Omni paque-350 intravenous contrast. Multiplanar reconstructions and maximum intensity projection 3D-recon structions of the carotid arteries and of the intracranial arteries were created by the technologist on a separate workstation. Automated exposure control and iterative reconstruction technique were emp loyed.The dose-length product was 1060.98 mGy-cm. COMPARISON: Brain MR dated 03/05/[address] angiogram dated 10/07/2015 FINDINGS: Carotid arteries: Small amount of atherosclerotic plaque without significant stenosis along the normal caliber aortic a rch. There is 10% stenosis of the right carotid bulb relative to normal distal artery lumen diameter (NASCET criteria). There is atherosclerotic plaque with 0% stenosis of the left carotid bulb relative to normal distal artery lumen diameter. The right vertebral artery is dominant. Severe stenosis at t he origin of the left vertebral artery which remains small throughout its course. There is an additio nal high-grade stenosis of the left vertebral artery at the level of the left transverse foramen of C 3. Severe cervical spondylosis. Similar pattern of mosaic attenuation in the visualized upper lungs m ost likely related to partial expiratory phase of imaging with scattered subsegmental air trapping re lated to small airway disease. A few small calcified nodules in the left upper lobe consistent with o ld granulomatous disease. Intracranial arteries Atherosclerotic calcifications with mild, <50% stenosis at the bilateral carotid siphons. Right verte bral artery is dominant with additional mild nonhemodynamically significant atherosclerotic plaque al sandra the intracranial portion of the bilateral vertebral arteries. There is no hemodynamically signifi cant stenosis in the vertebral, basilar and internal carotid arteries. There are no aneurysms identif ied. Both A1 and P1 segments are patent. There is a short moderate stenosis at the proximal left P2 segment. Cerebral arterial arborization appears symmetric. IMPRESSION: 1. 10% stenosis of the right carotid bulb relative to normal distal artery lumen diameter (NASCET cri teria). 2. Small amount of atherosclerotic plaque with 0% stenosis of the left carotid bulb relative to misha l distal artery lumen diameter. 3. Severe stenosis of the left vertebral artery near its origin at the level of the transverse forame n at C3 . 4. Focal moderate stenosis at the proximal left P2 segment. Atherosclerotic plaque without hemodynami gladys significant stenosis at the bilateral intracranial vertebral arteries and at the bilateral martin tid siphons Reviewed, dictated and finalized at location A. IMPRESSION: 1. 10% stenosis of the right carotid bulb relative to normal distal artery lume n diameter (NASCET criteria). 2. Small amount of atherosclerotic plaque with 0% stenosis of the left carotid bulb relative to normal distal artery lumen diameter. 3. Severe stenosis of the left vertebral artery near its origin at the level of the transverse foramen at C3 . 4. Focal moderate stenosis at the proximal left P2 segment. Atherosclerotic manuel que without hemodynamically significant stenosis at the bilateral intracranial vertebral arteries and at the bilateral carotid siphons
--- NOTE | ~2023-03-01 | MR_ITS ---
EXAMINATION: MR brain/brain stem wo/w con DATE: 03/05/2023 12:39 INDICATION: Acute mental status changes TECHNIQUE: Magnetic resonance imaging (MRI) of the brain and brainstem was performed without and with 11 mL Multihance intravenous contrast. Sequences included sagittal and axial T1-weighted SE, axial d iffusion-weighted FS SE, axial T2*-weighted GRE, axial T2-weighted FLAIR, and axial T2-weighted FSE. Postcontrast axial and coronal T1-weighted SE was obtained. Apparent diffusion coefficient (ADC) maps were created. COMPARISON: Head CT dated 03/05/2023 and brain MR dated 10/06/2015 FINDINGS: There are no areas of restricted diffusion to suggest acute infarction. No abnormal intracranial mass lesion. Small focus of susceptibility artifact in the anterior left cerebellar hemisphere consistent with sequela from chronic blood products. No evident acute intracranial hemorrhage. Slight progressi on in a moderate amount scattered areas of nonspecific increased T2-weighted signal intensity in the cerebral white matter, predominantly involving the deep and periventricular white matter which is wit hin normal limits for age and likely sequela of chronic small vessel ischemic disease. There are no i ntraparenchymal signal abnormalities seen on the other pulse sequences. Symmetric prominence of the s ulci and ventricles consistent with mild age-appropriate diffuse cerebral volume loss. There are no a bnormal extra-axial fluid collections. Flow voids are seen in the cerebral arteries on the T2-weighte d sequences consistent with their expected patency. Changes of bilateral intraocular lens replacement . Visualized orbits and soft tissues are unremarkable. There are no areas of abnormal enhancement on the post contrast images. IMPRESSION: 1. No acute intracranial process. 2. Small focus of susceptibility artifact in the left cerebral hemisphere consistent with old blood p roducts likely sequela of chronic microhemorrhage. 3. Age-related changes including mild diffuse volume loss and moderate scattered nonspecific white ma tter T2 hyperintensity consistent with chronic small vessel ischemic disease. Reviewed, dictated and finalized at location A. IMPRESSION: 1. No acute intracranial process. 2. Small focus of susceptibility artifact in the left cerebral hemisphere consi stent with old blood products likely sequela of chronic microhemorrhage. 3. Age-related changes including mild diffuse volume loss and moderate scattere d nonspecific white matter T2 hyperintensity consistent with chronic small vess el ischemic disease.
--- NOTE | ~2023-03-01 | CT_ITS ---
EXAMINATION: CT brain wo con INDICATION: Transient alteration of awareness COMPARISON: 03/01/2023 TECHNIQUE: Standard unenhanced head CT. The dose-length product (DLP) was 605.33 mGy-cm. The mA was a djusted according to patient size. Iterative reconstruction technique was employed. FINDINGS: There is no acute intraparenchymal hemorrhage. No evidence of mass lesion. No evidence of a cute infarction. There is mild periventricular and subcortical hypodensity probably related to small vessel ischemic disease. There is mild prominence of the sulci and ventricles related to cerebral atr ophy. Intracranial calcified cerebral atherosclerosis is noted. There are no extra-axial collections. There is no mass effect or midline shift. Changes in the globes are likely from ocular lens surgery. The visualized sinuses and mastoid air cells are well aerated. IMPRESSION: 1. No acute intracranial abnormality. 2. Age related findings. Reviewed, dictated and finalized at location A.
--- NOTE | 2023-03-01 09:29 | ECG_ITS ---
Measurements Intervals [place] Rate: 72 P: 71 GA: 155 QRS: 63 QRSD: 89 T: 36 QT: 416 QTc: 456 Interpretive Statements SINUS RHYTHM COMPARED TO ECG 11/24/2022 14:28:24 SINUS RHYTHM NOW PRESENT Electronically Signed On 03-01-2023 13:55:50 CDT by Daniel Triana M.D.
[2023-03-01 09:38] LABS: Basophils Percent Auto 0.7 % (0.2-1.2); Hematocrit 37.7 % (37.0-47.0); Immature Granulocyte Absolute 0.06 K/mm3 (0.00-0.031); Lymphocytes Absolute Auto 0.75 K/mm3 (0.9-3.2); Lymphocytes Percent Auto 12.6 % (18.3-44.2); Mean Corpuscular HGB Conc 31.8 g/dl (32-36); Mean Corpuscular Hemoglobin 27.1 pg (26-34); Mean Corpuscular Volume 85.3 fl (80-100); Mean Platelet Volume 9.5 fl (7.4-10.4); Monocytes Absolute Auto 0.6 K/mm3 (0.1-0.6); Monocytes Percent Auto 10.3 % (2.6-8.5); Neutrophils Absolute Auto 4.5 K/mm3 (1.3-6.7); Neutrophils Percent Auto 75.4 % (45.5-73.1); Platelet Count Result 173 k/mm3 (150-375); Red Blood Count 4.42 M/mm3 (4.2-5.4); Red Cell Distribution Width 14.7 % (11.5-14.5); White Blood Count 5.9 K/mm3 (4.5-10.0)
[2023-03-01 09:46] LABS: Alveolar/Arterial O2 Gradient 23.4 mmHg; Base Excess ABG 3.4 mEq/l (+/-2.0); Carboxyhemoglobin 0.5 % THb (0-2.0); Fractional Inspired Oxygen 21 %; HCO3 ABG 27.7 mEq/l (22.0-26.0); Methemoglobin ABG 0.3 %THb (0-1.5); Oxygen Content ABG 17.2 %vol (16.0-22.0); Oxygen Saturation ABG 95.9 % (95.0-100.0); PO2 ABG 77.2 mmHg (80.0-100.0); PO2 FiO2 Ratio Arterial Blood 3.68 %; Reduced Hemoglobin 5.2 %THb (0-5.0); pH ABG 7.448 (7.350-7.450)
[2023-03-01 09:47] LABS: Device ROOM AIR; Site Drawn RIGHT BRACHIAL
[2023-03-01 09:48] LABS: INR 1.1; Prothrombin Time 14.5 Seconds (11.1-14.7)
[2023-03-01 09:48] LABS: Alanine Aminotransferase 35 U/L (6-35); Albumin Level 3.9 g/dL (3.5-5.1); Alkaline Phosphatase 90 U/L (38-126); Anion Gap 6 mmol/L (8-16); Aspartate Amino Transferase 42 U/L (14-36); Blood Urea Nitrogen 20 mg/dL (7-17); Calcium 9.4 mg/dL (8.4-10.2); Carbon Dioxide 31 mmol/L (22-30); Chloride 95 mmol/L (98-107); Creatine Kinase 64 U/L (30-135); Estimated CRCL calculation 44 ml/min; Estimated Glomerular Filt Rate 60; Glucose 107 mg/dL (65-110); Lipase 81 U/L (23-300); Potassium 3.3 mmol/L (3.4-5.0); Sodium 132 mmol/L (137-145)
[2023-03-01 09:49] LABS: Lactic Acid Reflex 1.3 mmol/L (0.7-2.0); Partial Thromboplastin Time 27.6 SECONDS (22.3-36.8)
[2023-03-01 09:50] LABS: Ethanol < 10 mg/dL (<10)
[2023-03-01 09:56] LABS: NT Pro B Type Natriuretic Pept 1570 pg/mL (19.9-100)
[2023-03-01 10:02] LABS: Appearance Urine Cloudy (Clear); Bacteria Urine None Seen /hpf; Bilirubin Urine Negative (Negative); Blood Urine 2+ (Negative); Color Urine Yellow (Yellow); Glucose Urine UA Negative (Negative); Hyaline Casts Urine Present /lpf; Ketones Urine Trace mg/dL (Negative); Leukocyte Esterase Ur 2+ LEU/UL (Negative); Nitrate Urine Negative (Negative); Protein Urine Trace mg/dL (Negative); RBC Urine 0-2 /hpf (0-2); Specific Grav Ur 1.014 (1.001-1.035); Squamous Epithelial Cell Urine Few /hpf (Few); Urobilinogen Urine 0.2 mg/dL (<2.0); WBC Urine 21-50 /hpf
[2023-03-01 10:05] LABS: Add Urine Microscopic? YES
[2023-03-01 10:18] LABS: Amphetamine Screen Urine Negative (Negative); Barbiturate Screen Urine Negative (Negative); Benzodiazepines Screen Urine Negative (Negative); Cannabinoid Screen Urine Negative (Negative); Cocaine Screen Urine Negative (Negative); Methadone Screen Urine Negative (Negative); Opiate Screen Urine Negative (Negative); Phencyclidine Screen Urine Negative (Negative)
--- NOTE | 2023-03-01 11:11 | ED.FALL ---
HPI - Fall General Chief Complaint: Fall Stated Complaint: fall Time Seen by Provider: 03/01/23 09:18 Source: patient, family, EMS and RN notes reviewed Mode of arrival: EMS Limitations: altered mental status History of Present Illness HPI Narrative: This is an 82 year old female with history of dementia , hyponatremia, chronic indwelling leon catheter who presents for evaluation of fall and altered mental status. Her family is at bedside and they report that patient is normally not confused. She lives alone and someone checks on her frequently. Her daughter states patient has been having intermittent confusion and she has been on antibiotics for a UTI for past week. She was taking Bactrim and her PCP was going to change her to ampicillin based on urine culture. They states patient is extremely confused today and she is hallucinating. She is still hallucinating. Patient was last seen yesterday and she was found on the floor this morning. Her family states it appears patient got herself up from bed and got dressed for the day. Related Data Home Medications Medication Instructions Recorded Confirmed dorzolamide 2 % eye drops 1 drp LEFT EYE BID 10/28/22 03/01/23 timolol maleate 0.5 % eye drops 1 drp LEFT EYE BID 10/28/22 03/01/23 acetaminophen 650 mg 650 mg PO Q8H PRN pain 1-5 11/24/22 03/01/23 tablet,extended release (Tylenol Arthritis Pain) atorvastatin 10 mg tablet 10 mg PO QPM 11/24/22 03/01/23 clopidogrel 75 mg tablet 75 mg PO DAILY 11/24/22 03/01/23 gabapentin 100 mg capsule 100 mg PO DAILY 03/01/23 03/01/23 gabapentin 100 mg capsule 200 mg PO 1700 03/01/23 03/01/23 ondansetron 4 mg disintegrating 4 mg PO Q6H PRN Nausea 03/01/23 03/01/23 tablet oxycodone 5 mg tablet 2.5 mg PO BID pain 6-10 03/01/23 03/01/23 Allergies Allergy/AdvReac Type Severity Reaction Status Date / Time No Known Allergies Allergy Unknown Verified 03/01/23 15:28 Review of Systems Review of Systems: ROS unobtainable: Yes unobtainable due to mental status PMFSH Past Medical History Medical History Age related osteoporosis Aortic stenosis, mild Arthritis Asymptomatic stenosis of both vertebral arteries Benign essential HTN Bilateral carotid artery stenosis Breast CA CVA, old, facial weakness Diastolic dysfunction Essential (primary) hypertension 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 abnormality Glaucoma Hyperlipidemia Hypothyroidism (acquired) Lymphedema of left upper extremity Macular degeneration Postmenopausal Presbycusis of both ears Vitamin D deficiency Surgical History Surgical History History of left mastectomy Family History Family History (Updated 03/01/23 @ 15:37 by Josephine Alva RN) Sibling Cancer Mother Macular degeneration Social History Social History Social History: Surrogate medical decision maker: Mejia Ventura, son. Code status: Full code. Smoking status: Never smoker Second hand tobacco smoke exposure: No Alcohol intake: never Substance use: never Substance use type: does not use Lack of Transportation: No Lack of Food: Never True Current Housing: I Have Housing Concerned About Future Housing: No Difficulty Paying Gas/Electric Bills: No Difficulty Paying for Meds: No Currently Unemployed: No Education: High School Diploma/GED Difficulty w/ Childcare or Family Care: No Living arrangements: alone Additional living arrangements comments: Lives in [place]. Currently at [facility] for rehab. Occupation/Education: retired Spiritual care concerns: No Exam Const: General: confusion Nutritional Appearance: well nourished Other: oriented to person. States she is 82. She is not aware of location HENMT: Head: normal to inspection Face and sinus: normal facial exam Throat
[2023-03-01] MEDS: AMPICILLIN 2 GM/NS 100 ML 2 GM/100 ML BAG IVPB (13:15)
--- NOTE | 2023-03-01 14:50 | PC.NURSE ---
This patient, Marcus Ventura, was admitted to [facility] S[facility] Room 325-02. Patient/family oriented to hospital policies and general routines including ID bracelet, bed and alarms, visiting hours, pain management, procedures, bathroom and other care routines, personal items, smoking policy, room service/diet, and visiting hours. Report received from Ankush YOUNG. Information on how to activate the Rapid Response Team has been discussed. Patient/Family are encouraged to report perceived risks to care and to ask questions if they do not understand what they are told or what they should do.
--- NOTE | 2023-03-01 18:38 | PM.IMHP ---
H&P: HPI History of Present Illness Date/Time: 03/01/23 18:15 Chief Complaint: Fall. Narrative: This is a pleasant 83-year-old female with hypertension, dyslipidemia, carotid artery stenosis, hypothyroidism, glaucoma, macular degeneration, history of breast cancer with left upper extremity lymphedema, and neurogenic bladder with indwelling Solis catheter who presented to the emergency department via EMS from home for evaluation after a fall. The patient provides the following history. Family members provide additional information as she is somewhat forgetful. She lives in her own home and her children come over several times a day to help with meals and medications etc.. Sometime last week she was started on Bactrim for urinary tract infection and over the last several days she has been more confused than usual. This morning she was found her sitting on the ground near her walker, hallucinating. The patient is aware of her hallucinations and she does admit that she has intermittent periods where she is more confused though at this time she seems to be at her baseline. Preliminary workup in the ED was pretty unremarkable. Urine culture from last week reportedly grew out Enterococcus and she was given a dose of ampicillin the ED (I do not have a copy of that culture at this time). She is being admitted in this setting for IV antibiotics and monitoring. Currently she is resting comfortably. She reports that she had a good dinner and she has no current complaints. She specifically denies fever, chills, sweats, chest pain, shortness a breath, nausea, vomiting, diarrhea, abdominal pain, back pain, and current dysuria. Review of Systems Review of Systems: Reviewed and are negative except for as per HPI. [facility] Past Medical History Medical History Age related osteoporosis Aortic stenosis, mild Arthritis Asymptomatic stenosis of both vertebral arteries Benign essential HTN Bilateral carotid artery stenosis Breast CA CVA, old, facial weakness Diastolic dysfunction Essential (primary) hypertension 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 abnormality Glaucoma Hyperlipidemia Hypothyroidism (acquired) Lymphedema of left upper extremity Macular degeneration Postmenopausal Presbycusis of both ears Vitamin D deficiency Surgical History Surgical History History of left mastectomy Family History Family History Sibling Cancer Mother Macular degeneration Social History Social History (Updated 03/02/23 @ 12:24 by Kaya Hernandez PA-C) Social History: Surrogate medical decision maker: Mejia Ventura, son. Code status: Full code. Smoking status: Never smoker Second hand tobacco smoke exposure: No Alcohol intake: never Substance use: never Substance use type: does not use Lack of Transportation: No Lack of Food: Never True Current Housing: I Have Housing Concerned About Future Housing: No Difficulty Paying Gas/Electric Bills: No Difficulty Paying for Meds: No Currently Unemployed: No Education: High School Diploma/GED Difficulty w/ Childcare or Family Care: No Living arrangements: alone Additional living arrangements comments: Lives in [place]. Occupation/Education: retired Spiritual care concerns: No Meds Home Medications and Allergies Home Medications Medication Instructions Recorded Confirmed Type alendronate 70 mg tablet 70 mg PO WEEKLY #14 tabs 07/22/22 03/01/23 Rx cholecalciferol (vitamin D3) 1,250 1,250 mcg PO WEEKLY #14 caps 07/22/22 03/01/23 Rx mcg (50,000 unit) capsule levothyroxine 75 mcg tablet 75 mcg PO DAILY #100 tabs 09/07/22 03/01/23 Rx dorzolamide 2 % eye drops 1 drp LEFT EYE BID 10/28/22 03/01/23 History timolol maleate 0.5 % eye drops 1 drp LEFT EYE BID 10/28/22 03/01/23 History hyun
[2023-03-01] MEDS: AMPICILLIN 1 GM/NS 50 ML 1 GM/50 ML BAG IVPB (21:59)
[2023-03-01] MEDS: SODIUM CHLORIDE 0.9% IV 1,000 ML 100 ML IV CONT (22:00)
[2023-03-01] MEDS: DORZOLAMIDE HCL 2% OPHTH DROPS 1 DROP LEFT EYE (22:00)
[2023-03-01] MEDS: POTASSIUM CHLORIDE 20 MEQ ER TABLET 40 MEQ PO (22:00)
[2023-03-01] MEDS: TIMOLOL MALEATE 0.5% OP SOLN 5 ML BOTTLE 1 DROP LEFT EYE (22:00)
[2023-03-02] MEDS: AMPICILLIN 1 GM/NS 50 ML 1 GM/50 ML BAG IVPB ×4 (02:46→21:48)
[2023-03-02] MEDS: LEVOTHYROXINE SODIUM 75 MCG TABLET PO (05:51)
[2023-03-02 06:00] VITALS: BP 120/59; PULSE 71; RESP 16; TEMP 35.9; O2SAT 100
[2023-03-02 06:30] LABS: Basophils Absolute Auto 0.1 K/mm3 (0.0-0.1); Basophils Percent Auto 1.1 % (0.2-1.2); Eosinophils Percent Auto 0.2 % (0-4.4); Hematocrit 36.2 % (37.0-47.0); Hemoglobin 11.3 g/dL (12.0-15.0); Immature Granulocyte Absolute 0.03 K/mm3 (0.00-0.031); Immature Granulocyte Percent A 0.7 % (0-0.5); Lymphocytes Absolute Auto 1.36 K/mm3 (0.9-3.2); Lymphocytes Percent Auto 29.8 % (18.3-44.2); Mean Corpuscular HGB Conc 31.2 g/dl (32-36); Mean Corpuscular Hemoglobin 26.8 pg (26-34); Mean Platelet Volume 9.3 fl (7.4-10.4); Monocytes Absolute Auto 0.6 K/mm3 (0.1-0.6); Monocytes Percent Auto 12.9 % (2.6-8.5); Neutrophils Absolute Auto 2.5 K/mm3 (1.3-6.7); Neutrophils Percent Auto 55.3 % (45.5-73.1); Platelet Count Result 140 k/mm3 (150-375); Red Blood Count 4.21 M/mm3 (4.2-5.4); Red Cell Distribution Width 15.1 % (11.5-14.5); White Blood Count 4.6 K/mm3 (4.5-10.0)
[2023-03-02 06:39] LABS: Alanine Aminotransferase 26 U/L (6-35); Alkaline Phosphatase 65 U/L (38-126); Anion Gap 2 mmol/L (8-16); Aspartate Amino Transferase 29 U/L (14-36); Bilirubin,Total 0.8 mg/dL (0.2-1.3); Blood Urea Nitrogen 12 mg/dL (7-17); Calcium 8.4 mg/dL (8.4-10.2); Carbon Dioxide 31 mmol/L (22-30); Chloride 101 mmol/L (98-107); Estimated CRCL calculation 39 ml/min; Estimated Glomerular Filt Rate > 60; Glucose 84 mg/dL (65-110); Potassium 4.2 mmol/L (3.4-5.0); Sodium 134 mmol/L (137-145)
[2023-03-02] MEDS: DOCUSATE SODIUM 100 MG CAPSULE PO (08:59)
[2023-03-02] MEDS: GABAPENTIN 100 MG CAPSULE PO (08:59)
[2023-03-02] MEDS: MEMANTINE 10 MG TABLET PO ×2 (08:59→17:22)
[2023-03-02] MEDS: TIMOLOL MALEATE 0.5% OP SOLN 5 ML BOTTLE 1 DROP LEFT EYE ×2 (08:59→21:48)
[2023-03-02] MEDS: DORZOLAMIDE HCL 2% OPHTH DROPS 1 DROP LEFT EYE ×2 (08:59→21:48)
[2023-03-02] MEDS: CLOPIDOGREL BISULFATE 75 MG TABLET PO (08:59)
[2023-03-02 14:00] VITALS: BP 106/57; PULSE 74; RESP 16; TEMP 36.7; O2SAT 99
--- NOTE | 2023-03-02 14:35 | PM.IMPN ---
Progress Note: A&P Assessment and Plan (1) Complicated urinary tract infection: Code(s): N39.0 - Urinary tract infection, site not specified Status: Acute Assessment and Plan: There was a culture collected on arrival, her catheter has been changed d/t being accidentally dislodged. Those cx results are pending but there was a prior result of enterococcus - now on ampicillin which would be appropriate. Await cx sensitivities to ensure adequate coverage. (2) Confusion: Code(s): R41.0 - Disorientation, unspecified Status: Acute Assessment and Plan: Son at bedside and notes she is at her baseline. (3) Fall: Code(s): W19.XXXA - Unspecified fall, initial encounter Status: Acute Assessment and Plan: PT/OT eval appreciated. The patient has limited vision, balance/gait difficulties, and I question if may not need home health/therapy services upon discharge. (4) Mild dehydration: Code(s): E86.0 - Dehydration Status: Acute Assessment and Plan: Normalized renal function. Plan Await urine cx and therapy recs - have communicated with son regarding disposition and we will assess tomorrow for dispo plans. Time Spent With Patient Time: >30 minutes. Subjective Date/time seen: 03/02/23 14:35 Interval history: This 83 year old female presented with weakness and a fall. There was a recent UTI and has urology f/u in place - was to have a pessary placed today. She has had retention and a leon catheter is in place, replaced in the last 48 hours. The urine was noted to be enterococcus and she was started on ampicillin on 03/01/23. Today, she denies dysuria. She does note that she feels weak. She has a good appetite. She denies other complaints or concerns. There are no acute events reported from overnight. Review of Systems Review of Systems: Reviewed and are negative except for as per HPI. Exam Narrative: GENERAL APPEARANCE: Appears to be in no acute distress. HEAD: normocephalic atraumatic EYES: Markedly diminished vision. ENT: Hearing grossly intact, no nasal discharge NECK: Neck supple, trachea midline. CARDIAC: Normal S1/S2. Rhythm is regular. No murmurs, rubs, or gallops. No cyanosis or pallor. Extremities are warm and well perfused. LUNGS: Clear to auscultation without rales, rhonchi, wheezing or diminished breath sounds. Respirations even and unlabored. ABDOMEN: BS positive x 4 quadrants. Soft, nondistended, nontender. No guarding or rebound. MSK: No joint tenderness/swelling, fair strength in all extremities. PERIPHERAL VASCULAR: Peripheral pulses palpable. Normal perfusion, cap refill <2 seconds. No edema. NEURO: Follows commands. No focal deficits. SKIN: [place] without lesions or eruptions. PSYCH: Stable, no paranoia or delusional thinking. Objective Data Vital Signs Vital Signs: Vital Signs - 24 hr 03/01/23 14:59 03/01/23 15:00 03/01/23 20:00 Temperature 97.5 F L Pulse Rate 75 75 Respiratory Rate 16 16 Blood Pressure 164/58 H Pulse Oximetry 97 97 Oxygen Delivery Room Air Room Air 03/01/23 21:36 03/02/23 06:00 03/02/23 14:00 Temperature 97.2 F L 96.6 F L 98.1 F Pulse Rate 77 71 74 Respiratory Rate 16 16 16 Blood Pressure 116/57 L 120/59 L 106/57 L Pulse Oximetry 99 100 99 Oxygen Delivery Intake/Output Intake/Output: Intake & Output 02/27/23 02/28/23 03/01/23 03/02/23 23:59 23:59 23:59 23:59 Intake Total 386 1190 Output Total 500 675 Balance -114 515 Meds/Results Medications: Active Medications Generic Name Dose Route Start Last Admin Trade Name Freq PRN Reason Stop Dose Admin Atorvastatin Calcium 10 mg 03/02/23 18:00 Atorvastatin 10 Mg Tablet PO QPM [facility] Clopidogrel Bisulfate 75 mg 03/02/23 09:00 03/02/23 08:59 Clopidogrel Bisulfate 75 Mg Tablet PO 75 mg DAILY [facility] Administration Docusate Sodium 100 mg 03/02/23 09:00 03/02/23 08:59 Docusate Sodium 100 M
--- NOTE | 2023-03-02 16:15 | PCPTNOTE ---
On 03/02/23, the student, [Tierra Mcguire], provided care and completed [facility] documentation on this patient. I have reviewed the student's documentation and agree with the findings.
[2023-03-02] MEDS: ATORVASTATIN 10 MG TABLET PO (17:22)
[2023-03-02] MEDS: GABAPENTIN 100 MG CAPSULE 200 MG PO (17:22)
[2023-03-02 20:00] VITALS: PULSE 66; RESP 18; O2SAT 99
[2023-03-02 21:49] VITALS: BP 123/53; PULSE 66; RESP 18; TEMP 36.9; O2SAT 99
[2023-03-03] MEDS: AMPICILLIN 1 GM/NS 50 ML 1 GM/50 ML BAG IVPB ×4 (03:18→21:02)
[2023-03-03] MEDS: LEVOTHYROXINE SODIUM 75 MCG TABLET PO (05:43)
[2023-03-03 06:00] VITALS: BP 113/71; PULSE 62; RESP 18; TEMP 36.8; O2SAT 100
[2023-03-03 06:52] LABS: Hematocrit 34.5 % (37.0-47.0); Hemoglobin 10.8 g/dL (12.0-15.0); Immature Platelet Fraction Pct 3.3 % (0.9-11.2); Mean Corpuscular HGB Conc 31.3 g/dl (32-36); Mean Corpuscular Hemoglobin 27.1 pg (26-34); Mean Corpuscular Volume 86.5 fl (80-100); Mean Platelet Volume 10.2 fl (7.4-10.4); Platelet Count Result 132 k/mm3 (150-375); Red Blood Count 3.99 M/mm3 (4.2-5.4); Red Cell Distribution Width 15.2 % (11.5-14.5); White Blood Count 4.6 K/mm3 (4.5-10.0)
[2023-03-03 06:54] LABS: Alanine Aminotransferase 31 U/L (6-35); Albumin Level 2.7 g/dL (3.5-5.1); Alkaline Phosphatase 63 U/L (38-126); Anion Gap -1 mmol/L (8-16); Aspartate Amino Transferase 34 U/L (14-36); Bilirubin,Total 0.5 mg/dL (0.2-1.3); Blood Urea Nitrogen 13 mg/dL (7-17); Calcium 8.1 mg/dL (8.4-10.2); Carbon Dioxide 32 mmol/L (22-30); Chloride 102 mmol/L (98-107); Estimated CRCL calculation 39 ml/min; Estimated Glomerular Filt Rate > 60; Glucose 87 mg/dL (65-110); Magnesium 1.9 mg/dL (1.6-2.3); Potassium 4.1 mmol/L (3.4-5.0); Sodium 133 mmol/L (137-145)
[2023-03-03 07:53] VITALS: O2SAT 97
[2023-03-03] MEDS: DOCUSATE SODIUM 100 MG CAPSULE PO (08:09)
[2023-03-03] MEDS: CLOPIDOGREL BISULFATE 75 MG TABLET PO (08:09)
[2023-03-03] MEDS: MEMANTINE 10 MG TABLET PO ×2 (08:09→17:02)
[2023-03-03] MEDS: GABAPENTIN 100 MG CAPSULE PO (08:09)
[2023-03-03] MEDS: DORZOLAMIDE HCL 2% OPHTH DROPS 1 DROP LEFT EYE ×2 (08:09→21:07)
[2023-03-03] MEDS: TIMOLOL MALEATE 0.5% OP SOLN 5 ML BOTTLE 1 DROP LEFT EYE ×2 (08:10→21:07)
[2023-03-03] MEDS: ENOXAPARIN 40 MG/0.4 ML SYRINGE SUB-Q (08:35)
--- NOTE | 2023-03-03 10:52 | PM.IMPN ---
Progress Note: A&P Assessment and Plan (1) Complicated urinary tract infection: Code(s): N39.0 - Urinary tract infection, site not specified Status: Acute Assessment and Plan: There was a urine culture collected on arrival, her catheter has been changed while here d/t being accidentally dislodged. The indwelling cath will need to remain until definitive urological management is completed in the near future. With this in mind, I would extend the abx course to 7-10 days total. (2) Confusion: Code(s): R41.0 - Disorientation, unspecified Status: Acute Assessment and Plan: Patient a little slower to respond this am, not quite as good as yesterday. (3) Fall: Code(s): W19.XXXA - Unspecified fall, initial encounter Status: Acute Assessment and Plan: PT/OT eval appreciated. The patient has limited vision, balance/gait difficulties. Possibly a skilled pt placement may be needed. (4) Mild dehydration: Code(s): E86.0 - Dehydration Status: Acute Assessment and Plan: Normalized renal function. Resolved. (5) Anemia: Code(s): D64.9 - Anemia, unspecified Status: Acute Assessment and Plan: Mild downtrend in hgb, will check occult blood in stool on next bowel movement. Plan I have spoken with care coordination and we will additionally be looking at placement options while the patient remains in the hospital. Time Spent With Patient Time: >30 minutes with moderate decision making complexity Subjective Date/time seen: 03/03/23 10:52 Interval history: This 83 year old female presented with weakness and a fall. There was a recent UTI and has urology f/u in place - was to have a pessary placed today. She has had retention and a leon catheter is in place, replaced in the last 48 hours. The urine was noted to be enterococcus and she was started on ampicillin on 03/01/23. Today, she complains of feeling very confused. She does note that she additionally feels very weak. She has a good appetite. She denies other complaints or concerns. There are no acute events reported from overnight. Review of Systems Review of Systems: Reviewed and are negative except for as per HPI. Exam Narrative: GENERAL APPEARANCE: Appears to be in no acute distress. HEAD: normocephalic atraumatic EYES: Markedly diminished vision. ENT: Hearing grossly intact, no nasal discharge NECK: Neck supple, trachea midline. CARDIAC: Normal S1/S2. Rhythm is regular. No murmurs, rubs, or gallops. No cyanosis or pallor. Extremities are warm and well perfused. LUNGS: Clear to auscultation without rales, rhonchi, wheezing or diminished breath sounds. Respirations even and unlabored. ABDOMEN: BS positive x 4 quadrants. Soft, nondistended, nontender. No guarding or rebound. MSK: No joint tenderness/swelling, fair strength in all extremities. PERIPHERAL VASCULAR: Peripheral pulses palpable. Normal perfusion, cap refill <2 seconds. No edema. NEURO: Follows commands. No focal deficits. Oriented to self and place. Disoriented to time. Slower to answer than prior examinations. SKIN: [place] without lesions or eruptions. PSYCH: Stable, no paranoia or delusional thinking. Objective Data Vital Signs Vital Signs: Vital Signs - 24 hr 03/02/23 14:00 03/02/23 14:35 03/02/23 20:00 Temperature 98.1 F Pulse Rate 74 66 Respiratory Rate 16 18 Blood Pressure 106/57 L Pulse Oximetry 99 99 Oxygen Delivery Room Air Room Air 03/02/23 21:49 03/03/23 06:00 03/03/23 07:53 Temperature 98.4 F 98.3 F Pulse Rate 66 62 Respiratory Rate 18 18 Blood Pressure 123/53 L 113/71 Pulse Oximetry 99 100 97 Oxygen Delivery Room Air Intake/Output Intake/Output: Intake & Output 02/28/23 03/01/23 03/02/23 03/03/23 23:59 23:59 23:59 23:59 Intake Total 386 1490 150 Output Total 500 1075 800 Balance -114 415 -650 Meds/Results Medications: Active Medications Gener
[2023-03-03 14:00] VITALS: BP 117/60; PULSE 73; RESP 14; TEMP 36.4; O2SAT 100
[2023-03-03] MEDS: ATORVASTATIN 10 MG TABLET PO (17:02)
[2023-03-03] MEDS: GABAPENTIN 100 MG CAPSULE 200 MG PO (17:03)
[2023-03-03 20:00] VITALS: PULSE 73; RESP 14; O2SAT 100
[2023-03-03 22:00] VITALS: BP 147/63; PULSE 90; RESP 18; TEMP 36.1; O2SAT 99
[2023-03-04] MEDS: AMPICILLIN 1 GM/NS 50 ML 1 GM/50 ML BAG IVPB (02:00)
[2023-03-04] MEDS: LEVOTHYROXINE SODIUM 75 MCG TABLET PO (05:43)
[2023-03-04] MEDS: AMPICILLIN TRIHYDRATE 500 MG CAPSULE PO ×3 (05:43→17:50)
[2023-03-04 06:00] VITALS: BP 130/64; PULSE 62; RESP 18; TEMP 36.4; O2SAT 100
[2023-03-04 06:05] LABS: Hematocrit 35.8 % (37.0-47.0); Hemoglobin 11.3 g/dL (12.0-15.0); Immature Platelet Fraction Pct 3.2 % (0.9-11.2); Mean Corpuscular HGB Conc 31.6 g/dl (32-36); Mean Corpuscular Hemoglobin 27.6 pg (26-34); Mean Corpuscular Volume 87.3 fl (80-100); Platelet Count Result 149 k/mm3 (150-375); Red Cell Distribution Width 15.5 % (11.5-14.5)
[2023-03-04 06:19] LABS: Anion Gap 1 mmol/L (8-16); Blood Urea Nitrogen 9 mg/dL (7-17); Calcium 8.2 mg/dL (8.4-10.2); Carbon Dioxide 30 mmol/L (22-30); Chloride 103 mmol/L (98-107); Estimated CRCL calculation 44 ml/min; Estimated Glomerular Filt Rate > 60; Glucose 78 mg/dL (65-110); Potassium 3.8 mmol/L (3.4-5.0); Sodium 134 mmol/L (137-145)
[2023-03-04] MEDS: GABAPENTIN 100 MG CAPSULE PO (08:56)
[2023-03-04] MEDS: DOCUSATE SODIUM 100 MG CAPSULE PO (08:56)
[2023-03-04] MEDS: MEMANTINE 10 MG TABLET PO ×2 (08:56→17:51)
[2023-03-04] MEDS: CLOPIDOGREL BISULFATE 75 MG TABLET PO (08:56)
[2023-03-04] MEDS: TIMOLOL MALEATE 0.5% OP SOLN 5 ML BOTTLE 1 DROP LEFT EYE ×2 (08:57→21:07)
[2023-03-04] MEDS: ENOXAPARIN 40 MG/0.4 ML SYRINGE SUB-Q (08:57)
[2023-03-04] MEDS: DORZOLAMIDE HCL 2% OPHTH DROPS 1 DROP LEFT EYE ×2 (08:57→21:09)
--- NOTE | 2023-03-04 11:50 | P.CDI_ITS ---
CDI Query Clarification Request Chronic indwelling catheter documented. Patient receiving Ampicillin every 6 hours. UTI documented in the assessment and plan. Clarification request - UTI has been documented, chronic indwelling leon catheter documented. Please clarify if UTI is: * due to/associated with chronic indwelling leon catheter * not due to/associated with chronic indwelling leon catheter * unable to determine <Nani Ortiz RN - Last Filed: 03/04/23 11:56> Clarified Diagnosis Clarified Diagnosis: UTI is likely related to chronic Leon but unfortunately the leon must remain in place because of inability to urinate related to uterine prolapse. We did exchange the leon on admission though prior to starting antibiotics. <Avis Ozuna APRN - Last Filed: 03/05/23 06:08>
[2023-03-04 13:57] VITALS: BP 110/54; PULSE 68; RESP 16; TEMP 36.2; O2SAT 98
--- NOTE | 2023-03-04 17:48 | PM.IMPN ---
Progress Note: A&P Assessment and Plan (1) Complicated urinary tract infection: Code(s): N39.0 - Urinary tract infection, site not specified Status: Acute Assessment and Plan: There was a urine culture collected on arrival, her catheter has been changed while here d/t being accidentally dislodged. The indwelling cath will need to remain until definitive urological management is completed in the near future. With this in mind, I would extend the abx course to 7-10 days total. -It is unclear if the Leon catheter is contributory to her UTI. It is likely to have caused the UTI however the patient cannot void without it in place. She has impaired emptying due to her prolapse requiring maintenance of chronic Leon. Her catheter was exchanged on admission though, accidentally due to displacement, but a clean catheter was placed with initiation of antibiotics. (2) Confusion: Code(s): R41.0 - Disorientation, unspecified Status: Acute Assessment and Plan: Patient a little slower to respond this am, not quite as good as yesterday. (3) Fall: Code(s): W19.XXXA - Unspecified fall, initial encounter Status: Acute Assessment and Plan: PT/OT eval appreciated. The patient has limited vision, balance/gait difficulties. Possibly a skilled pt placement may be needed. -Likely discharge to [facility] tomorrow for respite care. (4) Mild dehydration: Code(s): E86.0 - Dehydration Status: Acute Assessment and Plan: Normalized renal function. Resolved. (5) Anemia: Code(s): D64.9 - Anemia, unspecified Status: Acute Assessment and Plan: Mild downtrend in hgb, will check occult blood in stool on next bowel movement. -Hgb improved today. 11.3. No obvious blood in stool. Plan I have spoken with care coordination and we will additionally be looking at placement options while the patient remains in the hospital. -Minnie has arranged for patient to go to [facility] tomorrow for respite care pending her improved mentation and dizziness. Subjective Date/time seen: 03/04/23 17:48 Interval history: This 83 year old female presented with weakness and a fall. There was a recent UTI and has urology f/u in place - was to have a pessary placed today. She has had retention and a leon catheter is in place, replaced in the last 48 hours. The urine was noted to be enterococcus and she was started on ampicillin on 03/01/23. 03/03: Today, she complains of feeling very confused. She does note that she additionally feels very weak. She has a good appetite. She denies other complaints or concerns. There are no acute events reported from overnight. 03/04: Patient appears a little less confused than yesterday but still not completely back to her baseline per her family. She mentions that she had a little dizziness when moving around today. I had initially planned to d/c her but given this dizziness and the fact that her mental status is still lacking, will keep for one more night of monitoring. Will obtain orthostatic vitals. Likely plan to d/c to [facility] tomorrow morning. Review of Systems Review of Systems: Reviewed and are negative except for as per HPI. Exam Narrative: GENERAL APPEARANCE: Appears to be in no acute distress. HEAD: normocephalic atraumatic EYES: Markedly diminished vision. ENT: Hearing grossly intact, no nasal discharge NECK: Neck supple, trachea midline. CARDIAC: Normal S1/S2. Rhythm is regular. No murmurs, rubs, or gallops. No cyanosis or pallor. Extremities are warm and well perfused. LUNGS: Clear to auscultation without rales, rhonchi, wheezing or diminished breath sounds. Respirations even and unlabored. ABDOMEN: BS positive x 4 quadrants. Soft, nondistended, nontender. No guarding or rebound. MSK: No joint tenderness/swelling, fair strength in all extremities. PERIPHERAL VASCULAR: Peripheral pulses palpable. Normal perfusion, cap
[2023-03-04] MEDS: ATORVASTATIN 10 MG TABLET PO (17:50)
[2023-03-04] MEDS: GABAPENTIN 100 MG CAPSULE 200 MG PO (17:51)
--- NOTE | 2023-03-04 17:57 | PM.DS ---
DS: Admitting Diagnosis Discharge Date March 05 Admitting Diagnosis UTI, weakness DS: Discharge Diagnosis Discharge Diagnosis (1) Complicated urinary tract infection: Code(s): N39.0 - Urinary tract infection, site not specified Status: Acute Assessment and Plan: There was a urine culture collected on arrival, her catheter has been changed while here d/t being accidentally dislodged. The indwelling cath will need to remain until definitive urological management is completed in the near future. With this in mind, I would extend the abx course to 7-10 days total. -It is unclear if the Leon catheter is contributory to her UTI. It is likely to have caused the UTI however the patient cannot void without it in place. She has impaired emptying due to her prolapse requiring maintenance of chronic Leon. Her catheter was exchanged on admission though, accidentally due to displacement, but a clean catheter was placed with initiation of antibiotics. (2) Confusion: Code(s): R41.0 - Disorientation, unspecified Status: Acute Assessment and Plan: Patient appears more well rested today and is A&Ox4. She is still slow with her responses but she understands the plan of care and can tell me why she was admitted. She is agreeable to go to [facility] today. (3) Fall: Code(s): W19.XXXA - Unspecified fall, initial encounter Status: Acute Assessment and Plan: PT/OT eval appreciated. The patient has limited vision, balance/gait difficulties. Possibly a skilled pt placement may be needed. -Likely discharge to [facility] tomorrow for respite care. (4) Mild dehydration: Code(s): E86.0 - Dehydration Status: Acute Assessment and Plan: Normalized renal function. Resolved. (5) Anemia: Code(s): D64.9 - Anemia, unspecified Status: Acute Assessment and Plan: Mild downtrend in hgb, will check occult blood in stool on next bowel movement. -Hgb improved today. 11.3. No obvious blood in stool. Plan I have spoken with care coordination and we will additionally be looking at placement options while the patient remains in the hospital. -Minnie has arranged for patient to go to [facility] tomorrow for respite care pending her improved mentation and dizziness. DS: Summary Hospital Course Reason for hospitalization: UTI, weakness, AMS, fall Hospital Course: You were admitted on 03/02 for weakness and a fall. Your urine showed a UTI. We exchanged your leon catheter and started ampicillin. You antibiotic will continue for a total of 10 days. End of treatment will be March 12. As your infection improved your mentation improved. You will now go to [facility] for respite care. You will continue with the chronic leon catheter until your pessary can be placed. Leon catheter should be changed once a month. We changed it on 03/02 so it does not need to be exchanged until the end of March. Thank you for allowing us to care for you and for choosing [facility]. Status at Discharge Cognitive/behavioral status at discharge: improved. Time Spent with Patient Time attestation: Total time spent providing and/or coordinating discharge services:32 Exam Narrative: GENERAL APPEARANCE: Appears to be in no acute distress. HEAD: normocephalic atraumatic EYES: Markedly diminished vision. ENT: Hearing grossly intact, no nasal discharge NECK: Neck supple, trachea midline. CARDIAC: Normal S1/S2. Rhythm is regular. No murmurs, rubs, or gallops. No cyanosis or pallor. Extremities are warm and well perfused. LUNGS: Clear to auscultation without rales, rhonchi, wheezing or diminished breath sounds. Respirations even and unlabored. ABDOMEN: BS positive x 4 quadrants. Soft, nondistended, nontender. No guarding or rebound. MSK: No joint tenderness/swelling, fair strength in all extremities. PERIPHERAL VASCULAR: Peripheral pulses palpable. Normal perfusion, c
[2023-03-04 19:31] LABS: SARS-CoV-2 RNA PCR Negative (Negative)
[2023-03-04 22:00] VITALS: BP 112/63; PULSE 70; RESP 16; TEMP 36.4; O2SAT 99
[2023-03-05] MEDS: AMPICILLIN TRIHYDRATE 500 MG CAPSULE PO ×4 (00:27→17:43)
[2023-03-05] MEDS: LEVOTHYROXINE SODIUM 75 MCG TABLET PO (05:50)
[2023-03-05 06:00] VITALS: BP 115/71; PULSE 78; RESP 16; TEMP 36.3; O2SAT 100
[2023-03-05 06:03] LABS: Basophils Absolute Auto 0.1 K/mm3 (0.0-0.1); Basophils Percent Auto 1.2 % (0.2-1.2); Eosinophils Percent Auto 0.2 % (0-4.4); Hematocrit 36.4 % (37.0-47.0); Hemoglobin 11.7 g/dL (12.0-15.0); Immature Granulocyte Absolute 0.03 K/mm3 (0.00-0.031); Immature Granulocyte Percent A 0.5 % (0-0.5); Lymphocytes Absolute Auto 1.68 K/mm3 (0.9-3.2); Lymphocytes Percent Auto 28.5 % (18.3-44.2); Mean Corpuscular HGB Conc 32.1 g/dl (32-36); Mean Corpuscular Hemoglobin 27.6 pg (26-34); Mean Corpuscular Volume 85.8 fl (80-100); Mean Platelet Volume 10.2 fl (7.4-10.4); Monocytes Absolute Auto 0.7 K/mm3 (0.1-0.6); Neutrophils Absolute Auto 3.5 K/mm3 (1.3-6.7); Neutrophils Percent Auto 58.6 % (45.5-73.1); Platelet Count Result 157 k/mm3 (150-375); Red Blood Count 4.24 M/mm3 (4.2-5.4); Red Cell Distribution Width 15.4 % (11.5-14.5); White Blood Count 5.9 K/mm3 (4.5-10.0)
[2023-03-05 06:14] LABS: Alanine Aminotransferase 33 U/L (6-35); Albumin Level 3.1 g/dL (3.5-5.1); Alkaline Phosphatase 75 U/L (38-126); Anion Gap 3 mmol/L (8-16); Aspartate Amino Transferase 36 U/L (14-36); Bilirubin,Total 0.5 mg/dL (0.2-1.3); Blood Urea Nitrogen 9 mg/dL (7-17); Calcium 8.2 mg/dL (8.4-10.2); Carbon Dioxide 27 mmol/L (22-30); Chloride 104 mmol/L (98-107); Estimated CRCL calculation 51 ml/min; Estimated Glomerular Filt Rate > 60; Glucose 87 mg/dL (65-110); Potassium 3.7 mmol/L (3.4-5.0); Sodium 134 mmol/L (137-145)
--- NOTE | 2023-03-05 08:59 | PM.IMPN ---
Progress Note: A&P Assessment and Plan (1) Complicated urinary tract infection: Code(s): N39.0 - Urinary tract infection, site not specified Status: Acute Assessment and Plan: There was a urine culture collected on arrival, her catheter has been changed while here d/t being accidentally dislodged.? The indwelling cath will need to remain until definitive urological management is completed in the near future.? With this in mind, I would extend the abx course to 7-10 days total. -It is unclear if the Leon catheter is contributory to her UTI. It is likely to have caused the UTI however the patient cannot void without it in place. She has impaired emptying due to her prolapse requiring maintenance of chronic Leon. Her catheter was exchanged on admission though, accidentally due to displacement, but a clean catheter was placed with initiation of antibiotics. -Urine clear, yellow draining to leon (2) Confusion: Code(s): R41.0 - Disorientation, unspecified Status: Acute Assessment and Plan: -acute mental status change as patient is non-verbal. She follows my commands and shakes her head yes or no to my questions but she cannot speak. -NIH 6 -Stat head CT wo contrast to rule out acute process was negative for acute intracranial abnormality. -MRI brain and brain stem w/wo contrast ordered. -Neurology consulted. Appreciate recommendations. -EKG, Troponin, PT/INR, PTT also ordered to help drive decisionmaking (3) Fall: Code(s): W19.XXXA - Unspecified fall, initial encounter Status: Acute Assessment and Plan: PT/OT eval appreciated.? The patient has limited vision, balance/gait difficulties.? Possibly a skilled pt placement may be needed. -Initial plan was to d/c today to respite care with [facility] however, dc canceled now that patient has acute mental status change. -fall precautions as patient can be impulsive. Bed alarm on. (4) Mild dehydration: Code(s): E86.0 - Dehydration Status: Acute Assessment and Plan: -Labs reviewed. Normal renal function. Resolved at this time. (5) Anemia: Code(s): D64.9 - Anemia, unspecified Status: Acute Assessment and Plan: -Stable at 11.7 -Daily CBC Subjective Date/time seen: 03/05/23 08:59 Interval history: This 83 year old female presented with weakness and a fall. There was a recent UTI and has urology f/u in place - was to have a pessary placed today. She has had retention and a leon catheter is in place, replaced in the last 48 hours. The urine was noted to be enterococcus and she was started on ampicillin on 03/01/23. 03/03: Today, she complains of feeling very confused. She does note that she additionally feels very weak. She has a good appetite. She denies other complaints or concerns. There are no acute events reported from overnight. 03/04: Patient appears a little less confused than yesterday but still not completely back to her baseline per her family. She mentions that she had a little dizziness when moving around today. I had initially planned to d/c her but given this dizziness and the fact that her mental status is still lacking, will keep for one more night of monitoring. Will obtain orthostatic vitals. Likely plan to d/c to [facility] tomorrow morning. 03/05: Plan was for discharge this morning the [facility]. However, I received a phone call from patient's nurse Jacqueline stating that the patient had acute mental status changes.. Apparently overnight she was taking off her gown trying to pick at things that were not there, just acting strange in general. This morning she is awake but she will not speak. On assessment she follows all my commands by has no verbal response. Will get stat CT head non con to investigate new AMS. Discharge was canceled. NIH is a scoring of 6 answering correctly on LOC questions, partial gaze palsy, and mute or global aphasia present. Review of s
[2023-03-05] MEDS: DORZOLAMIDE HCL 2% OPHTH DROPS 1 DROP LEFT EYE ×2 (10:21→19:50)
[2023-03-05] MEDS: TIMOLOL MALEATE 0.5% OP SOLN 5 ML BOTTLE 1 DROP LEFT EYE ×2 (10:21→19:50)
[2023-03-05] MEDS: DOCUSATE SODIUM 100 MG CAPSULE PO (10:22)
[2023-03-05] MEDS: ENOXAPARIN 40 MG/0.4 ML SYRINGE SUB-Q (10:22)
[2023-03-05] MEDS: CLOPIDOGREL BISULFATE 75 MG TABLET PO (10:22)
[2023-03-05] MEDS: MEMANTINE 10 MG TABLET PO ×2 (10:23→16:51)
[2023-03-05] MEDS: GABAPENTIN 100 MG CAPSULE PO (10:23)
--- NOTE | 2023-03-05 10:39 | ECG_ITS ---
Measurements Intervals [place] Rate: 63 P: 56 HI: 157 QRS: 38 QRSD: 78 T: 37 QT: 420 QTc: 431 Interpretive Statements SINUS RHYTHM EARLY PRECORDIAL R/S TRANSITION BORDERLINE ECG COMPARED TO ECG 03/01/2023 09:35:33 NO SIGNIFICANT CHANGES Electronically Signed On 03-05-2023 15:53:42 CDT by Saroj Benoit D.O.
[2023-03-05 11:22] LABS: Prothrombin Time 13.2 Seconds (11.1-14.7)
[2023-03-05 11:23] LABS: Partial Thromboplastin Time 33.3 SECONDS (22.3-36.8)
[2023-03-05 11:32] LABS: Troponin I < 0.012 ng/mL (0.000-0.034)
--- NOTE | 2023-03-05 13:02 | WPDNEURCNPN ---
Assessment and Plan Assessment and plan (1) Acute encephalopathy: Code(s): G93.40 - Encephalopathy, unspecified Status: Acute (2) Complicated urinary tract infection: Code(s): N39.0 - Urinary tract infection, site not specified Status: Acute Plan Marcus Ventura is a 82 year old female with a history of prior stroke, carotid and vertebral artery stenosis, HTN, HLD, hypothyroidism, breast cancer, history of atonic bladder with indwelling leon presenting due to fall. She has had some fluctuating confusion during this admission but had more dramatic change in mental status last night and was aphasic with gaze preference. CT head unrevealing. Concern for possible stroke vs TIA. - MRI brain pending - Stroke/TIA workup: will need CTA brain/carotid, surface echocardiogram, LDL, A1c checked - Already on Plavix 75mg and Lipitor 10mg daily -- continue for now Consult date: 03/05/23 HPI: Marcus Ventura is a 82 year old female with a history of prior stroke, carotid and vertebral artery stenosis, HTN, HLD, hypothyroidism, breast cancer, history of atonic bladder with indwelling leon presenting due to fall. Patient was initially brought in for weakness and fall. She was recently diagnosed with UTI. She was started on antibiotics during the admission. During the admission she was intermittently confused, but overall was able to communicate. There were plans to discharge patient this morning, however patient's nurse noted that patient's mental status had acutely changed from baseline. Overnight she was trying to take off her gown and pick at things that were not there. This morning she was completely aphasic, but able to follow commands. She was also noted to have gaze preference. Per hospitalist note, the rest of her exam was non focal with no evidence of facial droop or focal weakness. Stat CT head was done which was negative for acute process. MRI brain has been done, report is pending. Family at bedside. Patient is more communicative after MRI but is still not at her baseline. Review of Systems Review of Systems: ROS unobtainable: Yes unobtainable due to medical condition and unobtainable due to mental status PMFSH Past Medical History Medical History Age related osteoporosis Aortic stenosis, mild Arthritis Asymptomatic stenosis of both vertebral arteries Benign essential HTN Bilateral carotid artery stenosis Breast CA CVA, old, facial weakness Diastolic dysfunction Essential (primary) hypertension 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 abnormality Glaucoma Hyperlipidemia Hypothyroidism (acquired) Lymphedema of left upper extremity Macular degeneration Postmenopausal Presbycusis of both ears Vitamin D deficiency Surgical History Surgical History History of left mastectomy Family History Family History Sibling Cancer Mother Macular degeneration Social History Social History (Updated 03/02/23 @ 12:24 by Kaya Hernandez PA-C) Social History: Surrogate medical decision maker: Mejia Ventura, mohini. Code status: Full code. Smoking status: Never smoker Second hand tobacco smoke exposure: No Alcohol intake: never Substance use: never Substance use type: does not use Lack of Transportation: No Lack of Food: Never True Current Housing: I Have Housing Concerned About Future Housing: No Difficulty Paying Gas/Electric Bills: No Difficulty Paying for Meds: No Currently Unemployed: No Education: High School Diploma/GED Difficulty w/ Childcare or Family Care: No Living arrangements: alone Additional living arrangements comments: Lives in [place]. Occupation/Education: retired Spiritual care concerns: No Meds Home Medications and Allergies Home Medications Medication Instructions Record
[2023-03-05 13:46] LABS: LDL Cholesterol Direct 70 mg/dL
[2023-03-05 13:58] VITALS: BP 119/57; PULSE 65; RESP 12; TEMP 36.6; O2SAT 96
[2023-03-05 15:50] LABS: Hemoglobin A1C 5.4 % (<5.7); LDL Cholesterol Direct 73 mg/dL
[2023-03-05] MEDS: GABAPENTIN 100 MG CAPSULE 200 MG PO (16:51)
[2023-03-05] MEDS: ATORVASTATIN 10 MG TABLET PO (17:43)
[2023-03-05 20:00] VITALS: PULSE 65; RESP 18; O2SAT 96
[2023-03-05 21:02] VITALS: BP 119/57; PULSE 65; RESP 18; TEMP 36.8; O2SAT 96
[2023-03-05 21:25] VITALS: PULSE 65; O2SAT 96
[2023-03-06] MEDS: AMPICILLIN TRIHYDRATE 500 MG CAPSULE PO ×4 (00:17→17:11)
[2023-03-06 05:51] VITALS: BP 112/72; PULSE 86; RESP 18; TEMP 36.7; O2SAT 100
[2023-03-06 06:05] LABS: Basophils Percent Auto 0.7 % (0.2-1.2); Eosinophils Percent Auto 0.2 % (0-4.4); Hematocrit 39.3 % (37.0-47.0); Hemoglobin 12.3 g/dL (12.0-15.0); Immature Granulocyte Absolute 0.05 K/mm3 (0.00-0.031); Immature Granulocyte Percent A 0.8 % (0-0.5); Lymphocytes Absolute Auto 1.31 K/mm3 (0.9-3.2); Lymphocytes Percent Auto 22.2 % (18.3-44.2); Mean Corpuscular HGB Conc 31.3 g/dl (32-36); Mean Corpuscular Hemoglobin 27.1 pg (26-34); Mean Corpuscular Volume 86.6 fl (80-100); Mean Platelet Volume 9.5 fl (7.4-10.4); Monocytes Absolute Auto 0.7 K/mm3 (0.1-0.6); Monocytes Percent Auto 12.1 % (2.6-8.5); Neutrophils Absolute Auto 3.8 K/mm3 (1.3-6.7); Platelet Count Result 183 k/mm3 (150-375); Red Blood Count 4.54 M/mm3 (4.2-5.4); Red Cell Distribution Width 15.5 % (11.5-14.5); White Blood Count 5.9 K/mm3 (4.5-10.0)
[2023-03-06 06:20] LABS: Anion Gap 2 mmol/L (8-16); Blood Urea Nitrogen 12 mg/dL (7-17); Calcium 8.3 mg/dL (8.4-10.2); Carbon Dioxide 30 mmol/L (22-30); Chloride 99 mmol/L (98-107); Estimated CRCL calculation 39 ml/min; Estimated Glomerular Filt Rate > 60; Glucose 86 mg/dL (65-110); Potassium 3.8 mmol/L (3.4-5.0); Sodium 131 mmol/L (137-145)
[2023-03-06] MEDS: LEVOTHYROXINE SODIUM 75 MCG TABLET PO (06:40)
[2023-03-06 08:00] VITALS: BP 111/56; PULSE 78; RESP 14; TEMP 36.6; O2SAT 94
--- NOTE | 2023-03-06 08:31 | PM.IMPN ---
Progress Note: A&P Assessment and Plan (1) Complicated urinary tract infection: Code(s): N39.0 - Urinary tract infection, site not specified Status: Acute Assessment and Plan: There was a urine culture collected on arrival, her catheter has been changed while here d/t being accidentally dislodged.? The indwelling cath will need to remain until definitive urological management is completed in the near future.? With this in mind, I would extend the abx course to 7-10 days total. Now on Ampicillin 500 mg PO Q 6 hours. -It is unclear if the Leon catheter is contributory to her UTI. It is likely to have caused the UTI however the patient cannot void without it in place. She has impaired emptying due to her prolapse requiring maintenance of chronic Leon. Her catheter was exchanged on admission though, accidentally due to displacement, but a clean catheter was placed with initiation of antibiotics. -Urine clear, yellow draining to leon (2) Confusion: Code(s): R41.0 - Disorientation, unspecified Status: Acute Assessment and Plan: -acute mental status changes on 03/05 with expressive aphasia. Resolved later in the morning but patient was still not back to baseline. -NIH 6 -Stat head CT wo contrast to rule out acute process was negative for acute intracranial abnormality. -MRI brain and brain stem w/wo contrast ordered. Shows small focus of susceptibility artifact in the left cerebral hemisphere consistent with old blood products likely sequela of chronic microhemorrhage, as well as age related changes consistent with chronic small vessel ischemic disease. -Neurology consulted. Appreciate recommendations. -EKG, Troponin, PT/INR, PTT also ordered to help drive decisionmaking (3) Fall: Code(s): W19.XXXA - Unspecified fall, initial encounter Status: Acute Assessment and Plan: PT/OT eval appreciated.? The patient has limited vision, balance/gait difficulties.? Possibly a skilled pt placement may be needed. -Initial plan was to d/c today to respite care with [facility] however, dc canceled now that patient has acute mental status change. -fall precautions as patient can be impulsive. Bed alarm on. (4) Mild dehydration: Code(s): E86.0 - Dehydration Status: Acute Assessment and Plan: -Labs reviewed. Normal renal function. Resolved at this time. (5) Anemia: Code(s): D64.9 - Anemia, unspecified Status: Acute Assessment and Plan: -Stable at 12.3 -Daily CBC Subjective Date/time seen: 03/06/23 08:31 Interval history: This 83 year old female presented with weakness and a fall. There was a recent UTI and has urology f/u in place - was to have a pessary placed today. She has had retention and a leon catheter is in place, replaced in the last 48 hours. The urine was noted to be enterococcus and she was started on ampicillin on 03/01/23. 03/03: Today, she complains of feeling very confused. She does note that she additionally feels very weak. She has a good appetite. She denies other complaints or concerns. There are no acute events reported from overnight. 03/04: Patient appears a little less confused than yesterday but still not completely back to her baseline per her family. She mentions that she had a little dizziness when moving around today. I had initially planned to d/c her but given this dizziness and the fact that her mental status is still lacking, will keep for one more night of monitoring. Will obtain orthostatic vitals. Likely plan to d/c to [facility] tomorrow morning. 03/05: Plan was for discharge this morning the [facility]. However, I received a phone call from patient's nurse Jacqueline stating that the patient had acute mental status changes.. Apparently overnight she was taking off her gown trying to pick at things that were not there, just acting strange in general. This morning she is awake but she will not speak. On assess
[2023-03-06] MEDS: GABAPENTIN 100 MG CAPSULE PO (09:32)
[2023-03-06] MEDS: DORZOLAMIDE HCL 2% OPHTH DROPS 1 DROP LEFT EYE ×2 (09:32→21:08)
[2023-03-06] MEDS: CLOPIDOGREL BISULFATE 75 MG TABLET PO (09:32)
[2023-03-06] MEDS: TIMOLOL MALEATE 0.5% OP SOLN 5 ML BOTTLE 1 DROP LEFT EYE ×2 (09:32→21:08)
[2023-03-06] MEDS: DOCUSATE SODIUM 100 MG CAPSULE PO (09:33)
[2023-03-06] MEDS: ENOXAPARIN 40 MG/0.4 ML SYRINGE SUB-Q (09:33)
[2023-03-06] MEDS: MEMANTINE 10 MG TABLET PO ×2 (09:33→17:11)
[2023-03-06 10:21] VITALS: BP 100/67; BP 103/65
[2023-03-06 14:00] VITALS: BP 97/63; PULSE 76; RESP 14; TEMP 37.2; O2SAT 100
[2023-03-06] MEDS: GABAPENTIN 100 MG CAPSULE 200 MG PO (17:11)
[2023-03-06] MEDS: ATORVASTATIN 10 MG TABLET PO (17:11)
[2023-03-06 21:14] VITALS: BP 116/53; PULSE 70; RESP 16; TEMP 36.4; O2SAT 97
--- NOTE | 2023-03-07 | ECHO_ITS ---
Patient Info Name: Marcus Ventura Age: 82 years : 1940 Gender: Female Ht: 63 in Wt: 122 lbs BSA: 1.57 m2 HR: 79 bpm BP: 118 / 49 mmHg Technical Quality: Fair Exam Date: 03/07/2023 8:59 AM Exam Location: [facility] Patient Status: Inpatient Admit Date: 03/02/2023 Staff Ordering Physician: Cassi Combs MD Project Intern: Sanam Hanley RDCS Attending Provider: Jerry Torres MD Exam Type: CA echo doppler w bubble study Study Info Indications - CONCERN FOR STROKE VS TIA Complete two-dimensional, color flow and Doppler transthoracic echocardiogram is performed with agitated saline. Contrast/Agitated Saline Contrast/Ag. Saline: Agitated Saline Amount: 20.00 ml Administered By: Jessica Clemens Existing IV Access: Yes IV Access Condition: patent with no signs of infiltration Summary 1. Left ventricular chamber dimension is normal. 2. Left ventricular systolic function is hyperdynamic, estimated at >70%. 3. There is moderate concentric increased left ventricular wall thickness. 4. The left ventricular diastolic function is grade I diastolic dysfunction. 5. Global longitudinal strain is normal at -17.5%. 6. Left atrial chamber dimension is mildly enlarged. 7. There is moderate aortic valve sclerosis. 8. There is mild aortic valve stenosis with a peak velocity of 330 cm/s, mean gradient of 18 mmHg, and aortic valve area of 3.1 cm2. 9. The mitral valve has moderately calcified annulus. Left Ventricle Tissue doppler E/e' is not obtained. Global longitudinal strain is normal at -17.5%. Left ventricular chamber dimension is normal. Left ventricular systolic function is hyperdynamic, estimated at >70%. There is moderate concentric increased left ventricular wall thickness. The left ventricular diastolic function is grade I diastolic dysfunction. Right Ventricle Right ventricular systolic function is normal and with normal TAPSE 2.0 cm. Right ventricular chamber dimension is normal. Left Atria Left atrial chamber dimension is mildly enlarged. Right Atria Right atrial chamber dimension is normal. Atrial Septum Agitated saline injection with and without valsalva maneuver opacified right side cardiac chambers without shunt to left side cardiac chambers. Intact interatrial septum visualized by 2D and agitated saline imaging. Aortic Valve There is mild aortic valve stenosis with a peak velocity of 330 cm/s, mean gradient of 18 mmHg, and aortic valve area of 3.1 cm2. The aortic valve is trileaflet. There is moderate aortic valve sclerosis. There is no aortic valve regurgitation. Pulmonic Valve There is no pulmonic regurgitation. Mitral Valve The mitral valve has moderately calcified annulus. There is no mitral valve stenosis. There is no mitral valve regurgitation. Tricuspid Valve There is no tricuspid valve regurgitation. Pericardium/Pleural There is no pericardial effusion. Inferior Vena Cava Normal inferior vena cava with >50% collapse upon inspiration consistent with normal right atrial pressure, 5 mmHg. Aorta The aortic root size at the sinus of Valsalva is normal. Left Ventricular Outflow Tract Name Value Normal LVOT 2D LVOT Diameter 2.0 cm LVOT Doppler
[2023-03-07] MEDS: AMPICILLIN TRIHYDRATE 500 MG CAPSULE PO ×4 (00:09→18:44)
[2023-03-07] MEDS: LEVOTHYROXINE SODIUM 75 MCG TABLET PO (05:51)
[2023-03-07 06:00] VITALS: BP 118/49; PULSE 75; RESP 15; TEMP 36.2; O2SAT 100
[2023-03-07 06:40] LABS: Basophils Percent Auto 0.3 % (0.2-1.2); Eosinophils Percent Auto 0.2 % (0-4.4); Hematocrit 35.9 % (37.0-47.0); Hemoglobin 11.7 g/dL (12.0-15.0); Immature Granulocyte Absolute 0.05 K/mm3 (0.00-0.031); Immature Granulocyte Percent A 0.8 % (0-0.5); Lymphocytes Percent Auto 21.1 % (18.3-44.2); Mean Corpuscular HGB Conc 32.6 g/dl (32-36); Mean Corpuscular Hemoglobin 27.7 pg (26-34); Mean Corpuscular Volume 85.1 fl (80-100); Monocytes Absolute Auto 0.9 K/mm3 (0.1-0.6); Monocytes Percent Auto 12.9 % (2.6-8.5); Neutrophils Absolute Auto 4.3 K/mm3 (1.3-6.7); Neutrophils Percent Auto 64.7 % (45.5-73.1); Platelet Count Result 181 k/mm3 (150-375); Red Blood Count 4.22 M/mm3 (4.2-5.4); Red Cell Distribution Width 15.5 % (11.5-14.5); White Blood Count 6.7 K/mm3 (4.5-10.0)
[2023-03-07 06:47] LABS: Anion Gap 1 mmol/L (8-16); Blood Urea Nitrogen 15 mg/dL (7-17); Carbon Dioxide 31 mmol/L (22-30); Chloride 97 mmol/L (98-107); Estimated CRCL calculation 44 ml/min; Estimated Glomerular Filt Rate > 60; Glucose 105 mg/dL (65-110); Potassium 3.5 mmol/L (3.4-5.0); Sodium 129 mmol/L (137-145)
--- NOTE | 2023-03-07 08:29 | PM.IMPN ---
Progress Note: A&P Assessment and Plan (1) Complicated urinary tract infection: Code(s): N39.0 - Urinary tract infection, site not specified Status: Acute Assessment and Plan: There was a urine culture collected on arrival which was negative and her catheter has been changed while here d/t being accidentally dislodged.? The indwelling cath will need to remain until definitive urological management is completed in the near future.? With this in mind, I would extend the abx course to 7-10 days total. Now on Ampicillin 500 mg PO Q 6 hours. -It is unclear if the Leon catheter is contributory to her UTI. It is likely to have caused the UTI however the patient cannot void without it in place. She has impaired emptying due to her prolapse requiring maintenance of chronic Leon. Her catheter was exchanged on admission though, accidentally due to displacement, but a clean catheter was placed with initiation of antibiotics. -Urine clear, yellow draining to leon (2) Confusion: Code(s): R41.0 - Disorientation, unspecified Status: Acute Assessment and Plan: -acute mental status changes on 03/05 with expressive aphasia. Resolved later in the morning, now back to baseline. -Stat head CT wo contrast to rule out acute process was negative for acute intracranial abnormality. -CTA shows severe stenosis of the left vertebral artery near its origin at the level of the transverse forament at C3. 10% stenosis of the right carotid bulb, and focal moderate stenosis at the proximal left P2 segment. -MRI brain and brain stem w/wo contrast ordered. Shows small focus of susceptibility artifact in the left cerebral hemisphere consistent with old blood products likely sequela of chronic microhemorrhage, as well as age related changes consistent with chronic small vessel ischemic disease. Sent results to Dr. Combs who believes these to be chronic findings and does not think they are related to her presentation. -Neurology consulted. Appreciate recommendations. - Other differential includes delirium. Will write for delirium precautions. (3) Fall: Code(s): W19.XXXA - Unspecified fall, initial encounter Status: Acute Assessment and Plan: PT/OT eval appreciated.? The patient has limited vision, balance/gait difficulties.? Possibly a skilled pt placement may be needed. -Initial plan was to d/c today to respite care with [facility] however, dc canceled now that patient has acute mental status change. -fall precautions as patient can be impulsive. Bed alarm on. (4) Mild dehydration: Code(s): E86.0 - Dehydration Status: Acute Assessment and Plan: -Labs reviewed. Normal renal function. Resolved at this time. (5) Anemia: Code(s): D64.9 - Anemia, unspecified Status: Acute Assessment and Plan: -Stable at 11.7 -Daily CBC Subjective Date/time seen: 03/07/23 08:29 Interval history: This 83 year old female presented with weakness and a fall. There was a recent UTI and has urology f/u in place - was to have a pessary placed today. She has had retention and a leon catheter is in place, replaced in the last 48 hours. The urine was noted to be enterococcus and she was started on ampicillin on 03/01/23. 03/03: Today, she complains of feeling very confused. She does note that she additionally feels very weak. She has a good appetite. She denies other complaints or concerns. There are no acute events reported from overnight. 03/04: Patient appears a little less confused than yesterday but still not completely back to her baseline per her family. She mentions that she had a little dizziness when moving around today. I had initially planned to d/c her but given this dizziness and the fact that her mental status is still lacking, will keep for one more night of monitoring. Will obtain orthostatic vitals. Likely plan to d/c to [facility] tomorrow morning. 03/05: Plan was for dischar
[2023-03-07] MEDS: CLOPIDOGREL BISULFATE 75 MG TABLET PO (09:40)
[2023-03-07] MEDS: DOCUSATE SODIUM 100 MG CAPSULE PO (09:41)
[2023-03-07] MEDS: MEMANTINE 10 MG TABLET PO ×2 (09:41→18:44)
[2023-03-07] MEDS: TIMOLOL MALEATE 0.5% OP SOLN 5 ML BOTTLE 1 DROP LEFT EYE ×2 (09:41→20:27)
[2023-03-07] MEDS: ENOXAPARIN 40 MG/0.4 ML SYRINGE SUB-Q (09:41)
[2023-03-07] MEDS: DORZOLAMIDE HCL 2% OPHTH DROPS 1 DROP LEFT EYE ×2 (09:41→20:27)
[2023-03-07] MEDS: GABAPENTIN 100 MG CAPSULE PO (09:41)
[2023-03-07] MEDS: oxyCODONE HCL (*CRX) 2.5 MG TAB IR PO ×2 (10:55→18:43)
--- NOTE | 2023-03-07 11:12 | WPDNEUROPN ---
Progress Note: A&P Assessment and Plan (1) Acute encephalopathy: Code(s): G93.40 - Encephalopathy, unspecified Status: Acute (2) Complicated urinary tract infection: Code(s): N39.0 - Urinary tract infection, site not specified Status: Acute Plan Marcus Ventura is a 82 year old female with a history of prior stroke, carotid and vertebral artery stenosis, HTN, HLD, hypothyroidism, breast cancer, history of atonic bladder with indwelling Leon presenting due to fall. She has had some fluctuating confusion during this admission but had more dramatic change in mental status last night and was aphasic with gaze preference. MRI brain showed no evidence of acute stroke. CTA brain/carotid showed L vertebral and P2 stenosis, but patient has a prior history of vertebral artery stenosis -- suspect likely chronic findings. Patient now back to baseline. No further work-up needed. Subjective Date/time seen: 03/07/23 11:12 Interval history: Marcus Ventura is a 82 year old female with a history of prior stroke, carotid and vertebral artery stenosis, HTN, HLD, hypothyroidism, breast cancer, history of atonic bladder with indwelling leon presenting due to fall. Patient was initially brought in for weakness and fall. She was recently diagnosed with UTI. She was started on antibiotics during the admission. During the admission she was intermittently confused, but overall was able to communicate. There were plans to discharge patient , however patient's nurse noted that patient's mental status had acutely changed from baseline. The night before she was trying to take off her gown and pick at things that were not there. The following morning she was completely aphasic, but able to follow commands. She was also noted to have gaze preference. Per hospitalist note, the rest of her exam was non focal with no evidence of facial droop or focal weakness. Stat CT head was done which was negative for acute process. MRI brain was negative for acute stroke. CTA shows severe stenosis of the L vertebral artery at its origin, 10% stenosis of R carotid bulbe, and moderate stenosis at the proximal L P2 segment. Patient appears to be back to her baseline. Review of Systems Constitutional: Constitutional: Denies chills, Denies fever(s) and Denies weight loss Eyes: Eyes: Denies diplopia and Reports loss of vision Comments: history of macular degeneration ENT: Denies dizziness, Denies hearing loss and Denies tinnitus Cardiovascular: Cardiovascular: Denies chest pain, Denies syncope and Denies dyspnea Respiratory: Respiratory: Denies cough, Denies dyspnea and Denies wheezing Gastrointestinal: Gastrointestinal: Denies abdominal pain, Denies change in bowel habits and Denies vomiting Genitourinary: Genitourinary: Denies urinary incontinence Musculoskeletal: Musculoskeletal: Denies arthralgias and Denies joint swelling Integumentary/Breasts: Skin/Breast: Denies new lesions and Denies rash Neurologic: Reports as per HPI, Denies dizziness, Denies syncope and Denies loss of vision Psychiatric: Psychiatric: Denies anxiety and Denies depression Endocrine: Endocrine: Denies cold intolerance and Denies heat intolerance Hematologic/Lymphatic: Hematologic/Lymphatic: Denies easy bleeding and Denies easy bruising Allergic/Immunologic: Allergic/Immunologic: Denies no additional allergic/immunologic complaints and Denies wheezing Exam Const: General: no acute distress and well nourished Nutritional Appearance: well nourished Orientation/consciousness: oriented to person, oriented to place and oriented to time HENMT: Head: normocephalic and atraumatic Ears: hearing grossly normal bilaterally and external ears normal Face/Nose/Sinus: Normal external nose present and normal facial exam Face and sinus: normal facial exam Mouth: Yes Normal oral and palatal mucosa present Eyes: Pupils: Equal, round and reactive pupils present EOM: No Nystagmus prese
--- NOTE | 2023-03-07 11:17 | PCOTNOTE ---
Attempted to see Patient this A.M. Patient refusing to participate in any activities due to having horrible Left knee pain. Patient stated, I need left alone to massage it out, rest the leg and get some sleep. RN notified and aware
[2023-03-07 14:55] VITALS: BP 104/53; PULSE 77; RESP 16; TEMP 36.4; O2SAT 98
[2023-03-07] MEDS: GABAPENTIN 100 MG CAPSULE 200 MG PO (18:43)
[2023-03-07] MEDS: ATORVASTATIN 10 MG TABLET PO (18:44)
[2023-03-07] MEDS: SODIUM CHLORIDE 500 MG TABLET PO (20:28)
[2023-03-07 20:41] VITALS: BP 122/54; PULSE 66; RESP 18; TEMP 36.7; O2SAT 100
[2023-03-08] MEDS: AMPICILLIN TRIHYDRATE 500 MG CAPSULE PO ×5 (00:23→23:49)
[2023-03-08] MEDS: LEVOTHYROXINE SODIUM 75 MCG TABLET PO (05:55)
[2023-03-08 06:00] VITALS: BP 114/56; PULSE 77; RESP 16; TEMP 36.7; O2SAT 100
[2023-03-08] MEDS: SODIUM CHLORIDE 500 MG TABLET PO ×2 (08:13→17:19)
[2023-03-08] MEDS: DOCUSATE SODIUM 100 MG CAPSULE PO (08:13)
[2023-03-08] MEDS: GABAPENTIN 100 MG CAPSULE PO (08:13)
[2023-03-08] MEDS: ENOXAPARIN 40 MG/0.4 ML SYRINGE SUB-Q (08:13)
[2023-03-08] MEDS: MEMANTINE 10 MG TABLET PO ×2 (08:13→17:20)
[2023-03-08] MEDS: oxyCODONE HCL (*CRX) 2.5 MG TAB IR PO ×2 (08:13→17:23)
[2023-03-08] MEDS: TIMOLOL MALEATE 0.5% OP SOLN 5 ML BOTTLE 1 DROP LEFT EYE ×2 (08:14→20:44)
[2023-03-08] MEDS: CLOPIDOGREL BISULFATE 75 MG TABLET PO (08:14)
[2023-03-08] MEDS: DORZOLAMIDE HCL 2% OPHTH DROPS 1 DROP LEFT EYE ×2 (08:14→20:44)
--- NOTE | 2023-03-08 09:24 | PM.IMPN ---
Progress Note: A&P Assessment and Plan (1) Complicated urinary tract infection: Code(s): N39.0 - Urinary tract infection, site not specified Status: Acute Assessment and Plan: There was a urine culture collected on arrival which was negative and her catheter has been changed while here d/t being accidentally dislodged.? The indwelling cath will need to remain until definitive urological management is completed in the near future.? With this in mind, I would extend the abx course to 7-10 days total. Now on Ampicillin 500 mg PO Q 6 hours. -It is unclear if the Leon catheter is contributory to her UTI. It is likely to have caused the UTI however the patient cannot void without it in place. She has impaired emptying due to her prolapse requiring maintenance of chronic Leon. Her catheter was exchanged on admission though, accidentally due to displacement, but a clean catheter was placed with initiation of antibiotics. -Urine clear, yellow draining to leon (2) Confusion: Code(s): R41.0 - Disorientation, unspecified Status: Acute Assessment and Plan: -acute mental status changes on 03/05 with expressive aphasia. Resolved later in the morning, now back to baseline. -Stat head CT wo contrast to rule out acute process was negative for acute intracranial abnormality. -CTA shows severe stenosis of the left vertebral artery near its origin at the level of the transverse forament at C3. 10% stenosis of the right carotid bulb, and focal moderate stenosis at the proximal left P2 segment. -MRI brain and brain stem w/wo contrast ordered. Shows small focus of susceptibility artifact in the left cerebral hemisphere consistent with old blood products likely sequela of chronic microhemorrhage, as well as age related changes consistent with chronic small vessel ischemic disease. Sent results to Dr. Combs who believes these to be chronic findings and does not think they are related to her presentation. -Neurology consulted. Appreciate recommendations. - Other differential includes delirium. Will write for delirium precautions. (3) Fall: Code(s): W19.XXXA - Unspecified fall, initial encounter Status: Acute Assessment and Plan: PT/OT eval appreciated.? The patient has limited vision, balance/gait difficulties.? Possibly a skilled pt placement may be needed. -Initial plan was to d/c today to respite care with [facility] however, dc canceled now that patient has acute mental status change. -fall precautions as patient can be impulsive. Bed alarm on. (4) Mild dehydration: Code(s): E86.0 - Dehydration Status: Acute Assessment and Plan: -Labs reviewed. Normal renal function. Resolved at this time. (5) Anemia: Code(s): D64.9 - Anemia, unspecified Status: Acute Assessment and Plan: -Stable at 11.7 -Daily CBC Plan sHe presented to the ER on 03/01 with complaints of altered mental status.? Per year family you had been started on Bactrim several days before he presented to the ER with concerns for UTI.? We obtained a urine culture when you were admitted that ended up not growing any bacteria.? However, because you have a chronic Leon catheter and your urinalysis had white cells and 2+ leukocyte esterase we went ahead and started you on a course of ampicillin for 7 days.? Today is the last day of that course.? He will not need to be discharged on antibiotics.? During use your stay had fluctuating altered mental status and 1 day particular you had expressive aphasia (see unable to speak).? For this reason we consulted the neurologist and did a full stroke workup which has been negative.? It is unclear why you had that episode but there could be a delirium component to it as well.? We are hoping that once she gets settled [facility] to get an abnormal routine this will help.? Irradiated discharge today however the facility does not have transportation and her family is unable to get yo
[2023-03-08 09:45] LABS: Basophils Percent Auto 0.3 % (0.2-1.2); Eosinophils Percent Auto 0.1 % (0-4.4); Hematocrit 36.7 % (37.0-47.0); Hemoglobin 11.7 g/dL (12.0-15.0); Immature Granulocyte Absolute 0.03 K/mm3 (0.00-0.031); Immature Granulocyte Percent A 0.4 % (0-0.5); Lymphocytes Absolute Auto 1.04 K/mm3 (0.9-3.2); Lymphocytes Percent Auto 13.7 % (18.3-44.2); Mean Corpuscular HGB Conc 31.9 g/dl (32-36); Mean Corpuscular Hemoglobin 27.6 pg (26-34); Mean Corpuscular Volume 86.6 fl (80-100); Monocytes Absolute Auto 0.8 K/mm3 (0.1-0.6); Monocytes Percent Auto 10.6 % (2.6-8.5); Neutrophils Absolute Auto 5.7 K/mm3 (1.3-6.7); Neutrophils Percent Auto 74.9 % (45.5-73.1); Platelet Count Result 232 k/mm3 (150-375); Red Blood Count 4.24 M/mm3 (4.2-5.4); Red Cell Distribution Width 15.7 % (11.5-14.5); White Blood Count 7.6 K/mm3 (4.5-10.0)
[2023-03-08 09:55] LABS: Anion Gap 7 mmol/L (8-16); Blood Urea Nitrogen 13 mg/dL (7-17); Calcium 8.3 mg/dL (8.4-10.2); Carbon Dioxide 27 mmol/L (22-30); Chloride 97 mmol/L (98-107); Estimated CRCL calculation 39 ml/min; Estimated Glomerular Filt Rate > 60; Glucose 118 mg/dL (65-110); Potassium 3.4 mmol/L (3.4-5.0); Sodium 131 mmol/L (137-145)
--- NOTE | 2023-03-08 13:02 | PM.DS ---
DS: Admitting Diagnosis Discharge Date March 08 Admitting Diagnosis Altered mental status DS: Discharge Diagnosis Discharge Diagnosis Plan Assessment and Plan (1) Complicated urinary tract infection: ?Code(s): N39.0 - Urinary tract infection, site not specified ?Status:?Acute ?Assessment and Plan: There was a urine culture collected on arrival which was negative and her catheter has been changed while here d/t being accidentally dislodged.? The indwelling cath will need to remain until definitive urological management is completed in the near future.? With this in mind, I would extend the abx course to 7-10 days total. Now on Ampicillin 500 mg PO Q 6 hours. -It is unclear if the Leon catheter is contributory to her UTI. It is likely to have caused the UTI however the patient cannot void without it in place. She has impaired emptying due to her prolapse requiring maintenance of chronic Leon. Her catheter was exchanged on admission though, accidentally due to displacement, but a clean catheter was placed with initiation of antibiotics. -Urine clear, yellow draining to leon (2) Confusion: ?Code(s): R41.0 - Disorientation, unspecified ?Status:?Acute ?Assessment and Plan: -acute mental status changes on 03/05 with expressive aphasia. Resolved later in the morning, now back to baseline. -Stat head CT wo contrast to rule out acute process was negative for acute intracranial abnormality. -CTA shows severe stenosis of the left vertebral artery near its origin at the level of the transverse forament at C3. 10% stenosis of the right carotid bulb, and focal moderate stenosis at the proximal left P2 segment. -MRI brain and brain stem w/wo contrast ordered. Shows small focus of susceptibility artifact in the left cerebral hemisphere consistent with old blood products likely sequela of chronic microhemorrhage, as well as age related changes consistent with chronic small vessel ischemic disease. Sent results to Dr. Combs who believes these to be chronic findings and does not think they are related to her presentation. -Neurology consulted. Appreciate recommendations. -? Other differential includes delirium.? Will write for delirium precautions. (3) Fall: ?Code(s): W19.XXXA - Unspecified fall, initial encounter ?Status:?Acute ?Assessment and Plan: PT/OT eval appreciated.? The patient has limited vision, balance/gait difficulties.? Possibly a skilled pt placement may be needed. -Initial plan was to d/c today to respite care with [facility] however, dc canceled now that patient has acute mental status change. -fall precautions as patient can be impulsive. Bed alarm on. (4) Mild dehydration: ?Code(s): E86.0 - Dehydration ?Status:?Acute ?Assessment and Plan: -Labs reviewed. Normal renal function. Resolved at this time. (5) Anemia: ?Code(s): D64.9 - Anemia, unspecified ?Status:?Acute ?Assessment and Plan: -Stable at 11.7 -Daily CBC DS: Summary Hospital Course Reason for hospitalization: [facility] Hospital Course: This 83 year old female presented with weakness and a fall.? There was a recent UTI and has urology f/u in place - was to have a pessary placed today.? She has had retention and a leon catheter is in place, replaced in the last 48 hours.? The urine was noted to be enterococcus and she was started on ampicillin on 03/01/23.? 03/03: Today, she complains of feeling very confused.? She does note that she additionally feels very weak.? She has a good appetite.? She denies other complaints or concerns.? There are no acute events reported from overnight. 03/04: Patient appears a little less confused than yesterday but still not completely back to her baseline per her family. She mentions that she had a little dizziness when moving around today. I had initially planned to d/c her but given this dizziness and the fact that her mental status is still lacking, will keep for one more night
[2023-03-08 13:29] VITALS: BMI 21.7
[2023-03-08 14:00] VITALS: BP 91/57; PULSE 77; RESP 14; TEMP 36.8; O2SAT 99
--- NOTE | 2023-03-08 14:03 | P.PNIM_ITS ---
Progress Note: A&P Assessment and Plan (1) Complicated urinary tract infection: Code(s): N39.0 - Urinary tract infection, site not specified Status: Acute Assessment and Plan: There was a urine culture collected on arrival which was negative and her catheter has been changed while here d/t being accidentally dislodged.? The indwelling cath will need to remain until definitive urological management is completed in the near future.? With this in mind, I would extend the abx course to 7-10 days total. Now on Ampicillin 500 mg PO Q 6 hours. -It is unclear if the Leon catheter is contributory to her UTI. It is likely to have caused the UTI however the patient cannot void without it in place. She has impaired emptying due to her prolapse requiring maintenance of chronic Leon. Her catheter was exchanged on admission though, accidentally due to displacement, but a clean catheter was placed with initiation of antibiotics. -Urine clear, yellow draining to leon (2) Confusion: Code(s): R41.0 - Disorientation, unspecified Status: Acute Assessment and Plan: -acute mental status changes on 03/05 with expressive aphasia. Resolved later in the morning, now back to baseline. -Stat head CT wo contrast to rule out acute process was negative for acute int racranial abnormality. -CTA shows severe stenosis of the left vertebral artery near its origin at the level of the transverse forament at C3. 10% stenosis of the right carotid bulb, and focal moderate stenosis at the proximal left P2 segment. -MRI brain and brain stem w/wo contrast ordered. Shows small focus of susceptibility artifact in the left cerebral hemisphere consistent with old blood products likely sequela of chronic microhemorrhage, as well as age related changes consistent with chronic small vessel ischemic disease. Sent results to Dr. Combs who believes these to be chronic findings and does not think they are related to her presentation. -Neurology consulted. Appreciate recommendations. - Other differential includes delirium. Will write for delirium precautions. (3) Fall: Code(s): W19.XXXA - Unspecified fall, initial encounter Status: Acute Assessment and Plan: PT/OT eval appreciated.? The patient has limited vision, balance/gait difficulties.? Possibly a skilled pt placement may be needed. -Initial plan was to d/c today to respite care with [facility] however, dc canceled now that patient has acute mental status change. -fall precautions as patient can be impulsive. Bed alarm on. (4) Mild dehydration: Code(s): E86.0 - Dehydration Status: Acute Assessment and Plan: -Labs reviewed. Normal renal function. Resolved at this time. (5) Anemia: Code(s): D64.9 - Anemia, unspecified Status: Acute Assessment and Plan: -Stable at 11.7 -Daily CBC Plan sHe presented to the ER on 03/01 with complaints of altered mental status.? Per year family you had been started on Bactrim several days before he presented to the ER with concerns for UTI.? We obtained a urine culture when you were admitted that ended up not growing any bacteria.? However, because you have a chronic Leon catheter and your urinalysis had white cells and 2+ leukocyte esterase we went ahead and started you on a course of ampicillin for 7 days.? Today is the last day of that course.? He will not need to be discharged on antibiotics.? During use your stay had fluctuating altered mental status and 1 day particular you had expressive aphasia (see unable to speak).? For this reason we consulted the neurologist and did a full stroke workup which has been negative.? It is unclear why you stringer
[2023-03-08] MEDS: GABAPENTIN 100 MG CAPSULE 200 MG PO (17:18)
[2023-03-08] MEDS: ATORVASTATIN 10 MG TABLET PO (17:20)
[2023-03-08 21:40] VITALS: BP 98/68; PULSE 79; RESP 18; TEMP 36.1; O2SAT 100
[2023-03-08 21:51] VITALS: O2SAT 99
[2023-03-09 05:56] LABS: Basophils Percent Auto 0.5 % (0.2-1.2); Eosinophils Percent Auto 0.3 % (0-4.4); Hematocrit 35.7 % (37.0-47.0); Hemoglobin 11.2 g/dL (12.0-15.0); Immature Granulocyte Absolute 0.07 K/mm3 (0.00-0.031); Immature Granulocyte Percent A 1.1 % (0-0.5); Lymphocytes Absolute Auto 1.32 K/mm3 (0.9-3.2); Mean Corpuscular HGB Conc 31.4 g/dl (32-36); Mean Corpuscular Hemoglobin 27.1 pg (26-34); Mean Corpuscular Volume 86.2 fl (80-100); Mean Platelet Volume 9.8 fl (7.4-10.4); Monocytes Absolute Auto 0.9 K/mm3 (0.1-0.6); Monocytes Percent Auto 13.7 % (2.6-8.5); Neutrophils Percent Auto 63.4 % (45.5-73.1); Platelet Count Result 232 k/mm3 (150-375); Red Blood Count 4.14 M/mm3 (4.2-5.4); Red Cell Distribution Width 15.8 % (11.5-14.5); White Blood Count 6.3 K/mm3 (4.5-10.0)
[2023-03-09 06:00] VITALS: BP 100/57; PULSE 75; RESP 18; TEMP 35.9; O2SAT 100
[2023-03-09] MEDS: AMPICILLIN TRIHYDRATE 500 MG CAPSULE PO (06:05)
[2023-03-09] MEDS: LEVOTHYROXINE SODIUM 75 MCG TABLET PO (06:05)
[2023-03-09 06:07] LABS: Alanine Aminotransferase 31 U/L (6-35); Albumin Level 3.2 g/dL (3.5-5.1); Alkaline Phosphatase 87 U/L (38-126); Anion Gap 3 mmol/L (8-16); Aspartate Amino Transferase 32 U/L (14-36); Bilirubin,Total 0.5 mg/dL (0.2-1.3); Blood Urea Nitrogen 15 mg/dL (7-17); Calcium 8.3 mg/dL (8.4-10.2); Carbon Dioxide 29 mmol/L (22-30); Chloride 98 mmol/L (98-107); Estimated CRCL calculation 39 ml/min; Estimated Glomerular Filt Rate > 60; Glucose 89 mg/dL (65-110); Potassium 3.9 mmol/L (3.4-5.0); Sodium 130 mmol/L (137-145)
[2023-03-09 07:38] VITALS: O2SAT 99
[2023-03-09] MEDS: DORZOLAMIDE HCL 2% OPHTH DROPS 1 DROP LEFT EYE (08:04)
[2023-03-09] MEDS: SODIUM CHLORIDE 500 MG TABLET PO (08:04)
[2023-03-09] MEDS: DOCUSATE SODIUM 100 MG CAPSULE PO (08:04)
[2023-03-09] MEDS: GABAPENTIN 100 MG CAPSULE PO (08:04)
[2023-03-09] MEDS: ENOXAPARIN 40 MG/0.4 ML SYRINGE SUB-Q (08:04)
[2023-03-09] MEDS: TIMOLOL MALEATE 0.5% OP SOLN 5 ML BOTTLE 1 DROP LEFT EYE (08:05)
[2023-03-09] MEDS: MEMANTINE 10 MG TABLET PO (08:05)
[2023-03-09] MEDS: CLOPIDOGREL BISULFATE 75 MG TABLET PO (08:05)
[2023-03-09] MEDS: oxyCODONE HCL (*CRX) 2.5 MG TAB IR PO (08:06)
[2023-03-09 09:27] LABS: SARS-CoV-2 RNA PCR Negative (Negative)
== END 2023-03-09 11:00 | DRG 699 ==
LOC: ANHED 13:13 → ANH3MEDSUR 13:52
PROVIDERS: Nurse Practitioner Acute Care; Nurse Practitioner Family; Physician Assistant; Student in an Organized Health Care Education/Training Program; Admitting Provider Internal Medicine; Emergency Provider General Practice; PCP Family Medicine; Visit Provider Nurse Practitioner
DX: T83.511A Infection and inflammatory reaction due to indwelling urethral catheter, initial encounter (principal); G93.49 Other encephalopathy; E87.1 Hypo-osmolality and hyponatremia; R47.01 Aphasia; N39.0 Urinary tract infection, site not specified; W19.XXXA Unspecified fall, initial encounter; E86.0 Dehydration; T83.021A Displacement of indwelling urethral catheter, initial encounter; D64.9 Anemia, unspecified; Z20.822 Contact with and (suspected) exposure to COVID-19; F03.90 Unspecified dementia, unspecified severity, without behavioral disturbance, psychotic disturbance, mood disturbance, and anxiety; I35.0 Nonrheumatic aortic (valve) stenosis; M19.90 Unspecified osteoarthritis, unspecified site; I69.392 Facial weakness following cerebral infarction; I10 Essential (primary) hypertension; H35.3290 Exudative age-related macular degeneration, unspecified eye, stage unspecified; R33.9 Retention of urine, unspecified; H40.9 Unspecified glaucoma; E78.5 Hyperlipidemia, unspecified; E03.9 Hypothyroidism, unspecified; M81.0 Age-related osteoporosis without current pathological fracture; N31.9 Neuromuscular dysfunction of bladder, unspecified; Z85.3 Personal history of malignant neoplasm of breast
CPT/HCPCS: 36415; 36600; 70450; 70496; 70498; 70553; 71045; 72125; 80048; 80053; 80307; 81001; 82375; 82550; 82805; 83036; 83050; 83605; 83690; 83721; 83735; 83880; 84443; 84484; 85025; 85027; 85055; 85610; 85730; 87086; 87635; 93005; 93306; 96365; 96366; 96375; 97110; 97116; 97161; 97165; 97530; 97535; 99285; A9270; A9577; G0378; J0290; J1650; J7030; Q9967

== ENCOUNTER 2023-11-14 10:14 | Outpatient (CLI) | payer MEDICARE, SELFPAY ==
[2023-11-14 11:00] LABS: Basophils Percent Auto 0.4 % (0.2-1.2); Eosinophils Absolute Auto 0.1 K/mm3 (0-0.3); Hematocrit 46.5 % (37.0-47.0); Hemoglobin 14.8 g/dL (12.0-15.0); Immature Granulocyte Absolute 0.05 K/mm3 (0.00-0.031); Immature Granulocyte Percent A 0.7 % (0-0.5); Lymphocytes Absolute Auto 1.13 K/mm3 (0.9-3.2); Lymphocytes Percent Auto 16.1 % (18.3-44.2); Mean Corpuscular HGB Conc 31.8 g/dl (32-36); Mean Corpuscular Hemoglobin 27.2 pg (26-34); Mean Corpuscular Volume 85.3 fl (80-100); Mean Platelet Volume 10.6 fl (7.4-10.4); Monocytes Absolute Auto 0.6 K/mm3 (0.1-0.6); Monocytes Percent Auto 8.8 % (2.6-8.5); Neutrophils Absolute Auto 5.1 K/mm3 (1.3-6.7); Platelet Count Result 202 k/mm3 (150-375); Red Blood Count 5.45 M/mm3 (4.2-5.4); Red Cell Distribution Width 16.2 % (11.5-14.5)
[2023-11-14 11:09] LABS: Alanine Aminotransferase 55 U/L (6-35); Albumin Level 3.8 g/dL (3.5-5.1); Alkaline Phosphatase 71 U/L (38-126); Anion Gap 7 mmol/L (8-16); Aspartate Amino Transferase 49 U/L (14-36); Bilirubin,Total 0.6 mg/dL (0.2-1.3); Blood Urea Nitrogen 21 mg/dL (7-17); Calcium 9.7 mg/dL (8.4-10.2); Carbon Dioxide 29 mmol/L (22-30); Chloride 97 mmol/L (98-107); Estimated Glomerular Filt Rate 47; Glucose 80 mg/dL (65-110); Potassium 4.5 mmol/L (3.4-5.0); Sodium 133 mmol/L (137-145)
[2023-11-14 13:43] LABS: Free T4 Free Thyroxine 1.39 ng/mL (0.78-2.19)
[2023-11-17 06:12] LABS: Triiodothyronine T3 Free 3.1 pg/mL (2.3-4.2)
== END 2023-11-14 10:15 | disposition home or self-care (01) ==
PROVIDERS: PCP Family Medicine; Visit Provider Physician Assistant
DX: E78.2 Mixed hyperlipidemia (principal); E03.9 Hypothyroidism, unspecified; I10 Essential (primary) hypertension
CPT/HCPCS: 36415; 80053; 84439; 84443; 84481; 85025

== ENCOUNTER 2024-03-29 09:16 | Inpatient (IN) | payer MEDICARE, SELFPAY ==
[2024-03-29] VITALS (11 sets, daily range): BP systolic 96–149; BP diastolic 51–90; PULSE 84–109; RESP 16–20; TEMP 36.4–36.7; O2SAT 94–100; BMI 24.3
--- NOTE | ~2024-03-29 | US_ITS ---
US renal BI 03/29/2024 18:01 Indication: UTI. Renal insufficiency. Procedure: High-resolution ultrasound of the kidneys and bladder Comparison: 11/27/2022 Findings: Moderate bilateral hydronephrosis. There is a right renal cyst measuring 2.2 cm. There is a stone in the right kidney measuring 8 mm. No left renal stones. No solid masses are identified. Lory schafer is not evaluated well due to Solis catheterization. Right renal length is 10.1 cm. Left kidney me asures 9.7 cm. Impression: 1: Moderate bilateral hydronephrosis. 2: Right nephrolithiasis measuring 8 mm. Reviewed, dictated and finalized at location B. Impression: 1: Moderate bilateral hydronephrosis. 2: Right nephrolithiasis measuring 8 mm.
[2024-03-29 10:17] LABS: Basophils Percent Auto 0.1 % (0.2-1.2); Hematocrit 42.8 % (37.0-47.0); Immature Granulocyte Absolute 0.17 K/mm3 (0.00-0.031); Immature Granulocyte Percent A 0.8 % (0-0.5); Lymphocytes Absolute Auto 0.46 K/mm3 (0.9-3.2); Lymphocytes Percent Auto 2.3 % (18.3-44.2); Mean Corpuscular HGB Conc 32.7 g/dl (32-36); Mean Corpuscular Hemoglobin 28.3 pg (26-34); Mean Corpuscular Volume 86.5 fl (80-100); Mean Platelet Volume 10.5 fl (7.4-10.4); Monocytes Absolute Auto 1.9 K/mm3 (0.1-0.6); Monocytes Percent Auto 9.3 % (2.6-8.5); Neutrophils Absolute Auto 17.6 K/mm3 (1.3-6.7); Neutrophils Percent Auto 87.5 % (45.5-73.1); Platelet Count Result 165 k/mm3 (150-375); Red Blood Count 4.95 M/mm3 (4.2-5.4); White Blood Count 20.1 K/mm3 (4.5-10.0)
[2024-03-29 10:25] LABS: INR 1.2; Prothrombin Time 15.2 Seconds (11.1-14.7)
[2024-03-29 10:26] LABS: Partial Thromboplastin Time 26.6 Seconds (22.3-36.8)
[2024-03-29 10:33] LABS: Alanine Aminotransferase 30 U/L (6-35); Alkaline Phosphatase 65 U/L (38-126); Anion Gap 12 mmol/L (4-12); Aspartate Amino Transferase 32 U/L (14-36); Blood Urea Nitrogen 33 mg/dL (7-17); Carbon Dioxide 24 mmol/L (22-30); Chloride 96 mmol/L (98-107); Estimated Glomerular Filt Rate 36; Glucose 149 mg/dL (65-110); Potassium 4.2 mmol/L (3.4-5.0); Sodium 132 mmol/L (137-145)
--- NOTE | 2024-03-29 10:45 | ED.FEMALEGU ---
HPI - Female Genitourinary General Chief complaint: Urogenital-Female Stated complaint: blood in leon catheter-leaking around catheter Time Seen by Provider: 03/29/24 09:35 History of Present Illness HPI Narrative: 83-year-old female presented to the emergency department for evaluation for a Leon catheter issues. Family states that the patient will often pull on her Leon catheter. senior living checked on the patient this morning and found that she was leaking around the Leon catheter. Upon arrival emergency department patient's Leon catheter was not secured to her leg. Related Data Home Medications Medication Instructions Recorded Confirmed dorzolamide 2 % eye drops 1 drp LEFT EYE BID 10/28/22 03/29/24 timolol maleate 0.5 % eye drops 1 drp LEFT EYE BID 10/28/22 03/29/24 acetaminophen 650 mg 650 mg PO Q8H PRN pain 1-5 11/24/22 10/24/23 tablet,extended release (Tylenol Arthritis Pain) aripiprazole 5 mg tablet (Abilify) 2.5 mg PO DAILY 03/29/24 03/29/24 spironolactone 25 mg tablet 50 mg PO DAILY 03/29/24 03/29/24 Allergies Allergy/AdvReac Type Severity Reaction Status Date / Time No Known Allergies Allergy Unknown Verified 03/29/24 16:23 Review of Systems Review of Systems: All systems reviewed & are unremarkable except as noted in HPI and below PMFSH Past Medical History Medical History (Updated 03/29/24 @ 16:37 by Donya Nazario MD) Acute encephalopathy Age related osteoporosis Aortic stenosis, mild Arthritis Asymptomatic stenosis of both vertebral arteries Benign essential HTN Bilateral carotid artery stenosis Breast CA CVA, old, facial weakness Diastolic dysfunction Elevated liver enzymes Essential (primary) hypertension 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 abnormality Glaucoma Hyperlipidemia Hyponatremia Hypothyroidism (acquired) Hypoxemia Lymphedema of arm Lymphedema of left upper extremity Macular degeneration Obstructive uropathy Postmenopausal Presbycusis of both ears Protein calorie malnutrition Sepsis Vitamin D deficiency Surgical History Surgical History History of left mastectomy Family History Family History Sibling Cancer Mother Macular degeneration Social History Social History (Updated 10/24/23 @ 07:29 by Katelynn Alvarez Social History: Surrogate medical decision maker: Mejia Ventura, son. Code status: Full code. Smoking status: Never smoker Second hand tobacco smoke exposure: No Alcohol intake: never Substance use: never Substance use type: does not use Do You Feel Safe in your Home?: Yes Lack of Transportation: No Lack of Food: Never True Current Housing: Decline to Answer Concerned About Future Housing: No Difficulty Paying Gas/Electric Bills: No Difficulty Paying for Meds: No Currently Unemployed: No Education: Decline to Answer Difficulty w/ Childcare or Family Care: No Living arrangements: alone Additional living arrangements comments: Lives in [place]. Occupation/Education: retired Gender identity (if verbalized by the patient): Female Sexual Orientation (if Verbalized by the Patient): Straight or Heterosexual Spiritual care concerns: No Exam Narrative: APPEARANCE: Ill-appearing HEAD: normocephalic, atraumatic. EYES: PERRLA/EOMI, conjunctivae clear. NOSE: Normal no drainage EARS:TMS clear with good light reflex. THROAT: Pharynx clear, no exudate. NECK: Supple. No adenopathy, no masses. RESPIRATORY: Airway patent, respirations nonlabored. Clear to auscultation bilaterally, no rales, rhonchi, wheezing. CARDIOVASCULAR: Regular rate and rhythm without murmurs rubs or gallops. ABDOMINAL: Soft, nontender, nondistended, normal bowel sounds MUSCULOSKELETAL: Moves all extremities. Strength/ROM intact, No edema, No calf tenderness. NEURO: Alert. Cranial nerves II through XII int
[2024-03-29] MEDS: SODIUM CHLORIDE 0.9% IV 1,000 ML 999 ML IV CONT (11:01)
[2024-03-29 11:54] LABS: Appearance Urine Turbid (Clear); Bacteria Urine 4+ /hpf; Bilirubin Urine 2+ (Negative); Blood Urine 2+ (Negative); Color Urine Red (Yellow); Glucose Urine UA Negative (Negative); Ketones Urine Negative (Negative); Leukocyte Esterase Ur 3+ LEU/UL (Negative); Need Manual Microscopic Reviewed; Nitrate Urine Positive (Negative); Protein Urine 2+ mg/dL (Negative); RBC Urine >100 /hpf (0-2); Specific Grav Ur 1.014 (1.001-1.035); Squamous Epithelial Cell Urine None Seen /hpf (Few); Urobilinogen Urine 0.2 mg/dL (<2.0); WBC Urine >100 /hpf (0-3)
[2024-03-29 11:56] LABS: Add Urine Microscopic? YES
--- NOTE | 2024-03-29 16:28 | PM.IMHP ---
H&P: HPI History of Present Illness Date/Time: 03/29/24 16:28 Chief Complaint: Solis catheter malfunction, blood in urine Narrative: This is a very pleasant 83-year-old female with a history of neurocognitive decline, left-sided breast cancer status post mastectomy, left upper extremity lymphedema, severe macular degeneration, hyperlipidemia, hypertension, bilateral carotid artery stenosis, vertebral artery stenosis, arthritis, history of CVA with no residual deficits, indwelling Solis catheter due to obstruction secondary to prolapse, chronic hyponatremia. Is brought in by her son Mr. Mejia Ventura. The patient lives at home the son lives next door. Her baseline is A&O x2. She has had intermittent bouts of severe confusion in the past which have resolved spontaneously. The day prior to admission the son noted there was a little bit of blood in the Solis catheter bag. He did not think much of it. He called the patient's PCP Dr. Perdomo and was instructed to stop antiplatelet therapy and monitor. The blood in the urine did get worse on the day of admission and then drainage completely stopped. And there was leakage around the catheter. The patient had been pulling on the Solis catheter. Subsequently they arrived at [place] [facility], staff noted the Solis catheter bag was not secured to her leg. The balloon was deflated and the Solis catheter was pushed further in and there was a return of urine. The Solis catheter was then changed to a new 1. The patient was administered ceftriaxone 1 g IV x1 along with 1 L normal saline. White blood cell count 00195. Sodium level 132, BUN 33, serum creatinine 1.4. Urinalysis demonstrates red and turbid urine, 2+ protein, positive nitrates, 2+ bilirubin, 3+ leukocyte esterase, greater than 100 rbc's and wbc's. Patient admitted on 03/29/2024 for observation. Review of Systems Review of Systems: All systems reviewed & are unremarkable except as noted in HPI and below (Subjective) ROS unobtainable: Yes unobtainable due to mental status (Very pleasant confused lady) [facility] Past Medical History Medical History (Updated 03/29/24 @ 16:37 by Donya Nazario MD) Acute encephalopathy Age related osteoporosis Aortic stenosis, mild Arthritis Asymptomatic stenosis of both vertebral arteries Benign essential HTN Bilateral carotid artery stenosis Breast CA CVA, old, facial weakness Diastolic dysfunction Elevated liver enzymes Essential (primary) hypertension 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 abnormality Glaucoma Hyperlipidemia Hyponatremia Hypothyroidism (acquired) Hypoxemia Lymphedema of arm Lymphedema of left upper extremity Macular degeneration Obstructive uropathy Postmenopausal Presbycusis of both ears Protein calorie malnutrition Sepsis Vitamin D deficiency Surgical History Surgical History History of left mastectomy Family History Family History Sibling Cancer Mother Macular degeneration Social History Social History (Updated 10/24/23 @ 07:29 by Katelynn Pierce) Social History: Surrogate medical decision maker: Mejia Ventura, son. Code status: Full code. Smoking status: Never smoker Second hand tobacco smoke exposure: No Alcohol intake: never Substance use: never Substance use type: does not use Do You Feel Safe in your Home?: Yes Lack of Transportation: No Lack of Food: Never True Current Housing: Decline to Answer Concerned About Future Housing: No Difficulty Paying Gas/Electric Bills: No Difficulty Paying for Meds: No Currently Unemployed: No Education: Decline to Answer Difficulty w/ Childcare or Family Care: No Living arrangements: alone Additional living arrangements comments: Lives in [place]. Occupation/Education: retired Gender identity (if verbalized by the patient): Female Sexual Orientation (if Verbalize
--- NOTE | 2024-03-29 16:39 | PC.NURSE ---
This patient, Marcus Ventura, was admitted to [facility] Surg Room 305-02. Patient/family oriented to hospital policies and general routines including ID bracelet, bed and alarms, visiting hours, pain management, procedures, bathroom and other care routines, personal items, smoking policy, room service/diet, and visiting hours. Information on how to activate the Rapid Response Team has been discussed. Patient/Family are encouraged to report perceived risks to care and to ask questions if they do not understand what they are told or what they should do.
[2024-03-29] MEDS: ATORVASTATIN 10 MG TABLET PO (22:10)
[2024-03-30 05:05] VITALS: BP 120/62; PULSE 93; RESP 16; TEMP 36.4; O2SAT 98
[2024-03-30 06:31] LABS: Basophils Percent Auto 0.1 % (0.2-1.2); Eosinophils Percent Auto 0.1 % (0-4.4); Hematocrit 36.2 % (37.0-47.0); Immature Granulocyte Absolute 0.11 K/mm3 (0.00-0.031); Immature Granulocyte Percent A 0.8 % (0-0.5); Immature Platelet Fraction Pct 4.4 % (0.9-11.2); Lymphocytes Absolute Auto 0.84 K/mm3 (0.9-3.2); Lymphocytes Percent Auto 5.8 % (18.3-44.2); Mean Corpuscular HGB Conc 33.1 g/dl (32-36); Mean Corpuscular Hemoglobin 28.9 pg (26-34); Mean Corpuscular Volume 87.2 fl (80-100); Mean Platelet Volume 11.3 fl (7.4-10.4); Monocytes Absolute Auto 1.3 K/mm3 (0.1-0.6); Monocytes Percent Auto 8.9 % (2.6-8.5); Neutrophils Absolute Auto 12.2 K/mm3 (1.3-6.7); Neutrophils Percent Auto 84.3 % (45.5-73.1); Platelet Count Result 126 k/mm3 (150-375); Red Blood Count 4.15 M/mm3 (4.2-5.4); Red Cell Distribution Width 15.3 % (11.5-14.5); White Blood Count 14.5 K/mm3 (4.5-10.0)
[2024-03-30 06:41] LABS: Anion Gap 7 mmol/L (4-12); Blood Urea Nitrogen 29 mg/dL (7-17); Calcium 8.3 mg/dL (8.4-10.2); Carbon Dioxide 26 mmol/L (22-30); Chloride 96 mmol/L (98-107); Estimated CRCL calculation 27 ml/min; Estimated Glomerular Filt Rate 47; Glucose 105 mg/dL (65-110); Potassium 4.1 mmol/L (3.4-5.0); Sodium 129 mmol/L (137-145)
[2024-03-30] MEDS: LEVOTHYROXINE SODIUM 75 MCG TABLET PO (06:49)
[2024-03-30 06:59] LABS: Procalcitonin 0.7 ng/mL
[2024-03-30 07:48] VITALS: O2SAT 97
--- NOTE | 2024-03-30 08:43 | PM.IMPN ---
Progress Note: A&P Assessment and Plan (1) Dislodged Solis catheter: Code(s): T83.021A - Displacement of indwelling urethral catheter, initial encounter Status: Acute Assessment and Plan: 03/30/24: Initially presented with hematuria due to patient pulling on catheter New catheter was placed while in the ED (2) Catheter-associated urinary tract infection: Code(s): T83.511A - Infection and inflammatory reaction due to indwelling urethral catheter, initial encounter; N39.0 - Urinary tract infection, site not specified Status: Acute Assessment and Plan: 03/30/24: Patient did not meet sirs or sepsis criteria UA showing red turbid urine, 2+ protein, 2+ urine blood, positive nitrate, 2+ urine bili, 3+ leukocytes, greater than 100 RBC and WBC, 4+ bacteria. Blood and urine cultures were obtained and pending Blood cultures currently showing Gram-negative bacilli isolated in both vials Renal ultrasound showing moderate bilateral hydronephrosis, right nephrolithiasis measuring 8 mm Continue Rocephin 2 g dosing (3) Acute kidney injury: Code(s): N17.9 - Acute kidney failure, unspecified Status: Acute Assessment and Plan: 03/30/24: Creatinine 1.4 initially now down to 1.1 Baseline creatinine 0.7-0.8 Continue to trend (4) Dementia: Qualifiers: Dementia behavioral or psychological symptom: with mood disturbance Dementia severity: mild Dementia type: vascular dementia Qualified Code(s): F01.A3 - Vascular dementia, mild, with mood disturbance Code(s): F03.90 - Unspecified dementia, unspecified severity, without behavioral disturbance, psychotic disturbance, mood disturbance, and anxiety Status: Acute Assessment and Plan: 03/30/24: Alert oriented x2 at baseline Continue Namenda Time Spent With Patient Time with patient: Greater than 35 minutes Subjective Date/time seen: 03/30/24 08:43 Interval history: Interval history: This is an 83-year-old female presented to hospital on 03/29/2024 with chronic indwelling catheter and hematuria. The patient is baseline alert oriented x2 and had been pulling on the catheter at home. Solis was changed in the ED. workup in the hospital included a renal ultrasound which shown moderate bilateral hydronephrosis, right nephrolithiasis measuring 8 mm. Initial labs showed a white blood cell count of 20.1 INR 1.2, sodium 132, chloride 96, creatinine 1.4, EGFR 36, procalcitonin 0.7. UA was obtained and showed red turbid urine, 2+ protein, 2+ urine blood, positive nitrate, 2+ urine bili, 3+ leukocyte, greater than 100 RBC and wbc's, 4+ bacteria. Urine and blood cultures were obtained and are pending. Blood cultures are showing Gram-negative bacilli in both vials. Patient was given 1 L of normal saline, started on IV fluids, and Rocephin 1 g which was increased to 2 g today. 03/30/24: Patient is alert and oriented x2-3. She knows she is at [facility] but did not know the year, she did know it was summer. VSS, she is afebrile, currently on room air. Patient denies any fever, chills, nausea, vomiting, diarrhea abdominal pain, chest pain, shortness a dysuria. Review of Systems Review of Systems: All systems reviewed & are unremarkable except as noted in HPI and below Constitutional: Constitutional: Reports as per HPI and Reports no additional constitutional complaints Eyes: Eyes: Reports as per HPI and Reports no additional eye complaints ENT: Reports system reviewed and no additional complaints, except as documented and Reports as per HPI Cardiovascular: Cardiovascular: Reports as per HPI and Reports no additional cardiovascular complaints Respiratory: Respiratory: Reports as per HPI and Reports no additional respiratory complaints Gastrointestinal: Gastrointestinal: Reports as per HPI and Reports no additional gastrointestinal complaints Genitourinary: Genitourinary: Reports no additional female genitourinary
[2024-03-30] MEDS: LIOTHYRONINE SODIUM 5 MCG TABLET PO (08:54)
[2024-03-30] MEDS: MEMANTINE 10 MG TABLET PO ×2 (08:55→16:02)
[2024-03-30] MEDS: TIMOLOL MALEATE 0.5% OP SOLN 5 ML BOTTLE 1 DROP LEFT EYE ×2 (08:55→16:02)
[2024-03-30] MEDS: ARIPiprazole 2.5 MG TABLET PO (08:55)
[2024-03-30] MEDS: DORZOLAMIDE HCL 2% OPHTH DROPS 1 DROP LEFT EYE ×2 (08:55→16:02)
[2024-03-30] MEDS: DOCUSATE SODIUM 100 MG CAPSULE PO (08:55)
[2024-03-30] MEDS: cefTRIAXone 2 GM/NS 100 ML 2 GM/100 ML BAG IVPB (09:02)
[2024-03-30 14:00] VITALS: BP 105/54; PULSE 59; RESP 16; TEMP 37; O2SAT 96
[2024-03-30] MEDS: ATORVASTATIN 10 MG TABLET PO (16:02)
[2024-03-30 20:55] VITALS: BP 143/68; PULSE 100; RESP 16; TEMP 37.2; O2SAT 96
[2024-03-31 05:45] VITALS: BP 115/65; PULSE 83; RESP 16; TEMP 37.1; O2SAT 95
[2024-03-31] MEDS: LEVOTHYROXINE SODIUM 75 MCG TABLET PO (05:56)
[2024-03-31 06:13] LABS: Basophils Percent Auto 0.2 % (0.2-1.2); Eosinophils Percent Auto 0.2 % (0-4.4); Hematocrit 34.6 % (37.0-47.0); Hemoglobin 11.5 g/dL (12.0-15.0); Immature Granulocyte Absolute 0.08 K/mm3 (0.00-0.031); Immature Granulocyte Percent A 0.8 % (0-0.5); Immature Platelet Fraction Pct 4.8 % (0.9-11.2); Lymphocytes Absolute Auto 0.73 K/mm3 (0.9-3.2); Lymphocytes Percent Auto 7.4 % (18.3-44.2); Mean Corpuscular HGB Conc 33.2 g/dl (32-36); Mean Corpuscular Hemoglobin 28.8 pg (26-34); Mean Corpuscular Volume 86.5 fl (80-100); Mean Platelet Volume 10.8 fl (7.4-10.4); Neutrophils Absolute Auto 8.1 K/mm3 (1.3-6.7); Neutrophils Percent Auto 81.4 % (45.5-73.1); Platelet Count Result 119 k/mm3 (150-375); Red Cell Distribution Width 15.1 % (11.5-14.5); White Blood Count 9.9 K/mm3 (4.5-10.0)
[2024-03-31 06:24] LABS: Alanine Aminotransferase 51 U/L (6-35); Albumin Level 2.8 g/dL (3.5-5.1); Alkaline Phosphatase 61 U/L (38-126); Anion Gap 5 mmol/L (4-12); Aspartate Amino Transferase 60 U/L (14-36); Bilirubin,Total 0.5 mg/dL (0.2-1.3); Blood Urea Nitrogen 29 mg/dL (7-17); Calcium 8.1 mg/dL (8.4-10.2); Carbon Dioxide 28 mmol/L (22-30); Chloride 95 mmol/L (98-107); Estimated CRCL calculation 30 ml/min; Estimated Glomerular Filt Rate 53; Glucose 91 mg/dL (65-110); Potassium 4.2 mmol/L (3.4-5.0); Sodium 128 mmol/L (137-145)
[2024-03-31] MEDS: TIMOLOL MALEATE 0.5% OP SOLN 5 ML BOTTLE 1 DROP LEFT EYE ×2 (09:19→17:08)
[2024-03-31] MEDS: cefTRIAXone 2 GM/NS 100 ML 2 GM/100 ML BAG IVPB (09:22)
[2024-03-31] MEDS: DORZOLAMIDE HCL 2% OPHTH DROPS 1 DROP LEFT EYE ×2 (09:24→17:08)
[2024-03-31] MEDS: DOCUSATE SODIUM 100 MG CAPSULE PO (09:24)
[2024-03-31] MEDS: ARIPiprazole 2.5 MG TABLET PO (09:24)
[2024-03-31] MEDS: MEMANTINE 10 MG TABLET PO ×2 (09:24→17:08)
[2024-03-31] MEDS: LIOTHYRONINE SODIUM 5 MCG TABLET PO (09:24)
--- NOTE | 2024-03-31 09:58 | PM.IMPN ---
Progress Note: A&P Assessment and Plan (1) Catheter-associated urinary tract infection: Code(s): T83.511A - Infection and inflammatory reaction due to indwelling urethral catheter, initial encounter; N39.0 - Urinary tract infection, site not specified Status: Acute Assessment and Plan: 03/30/24: Patient did not meet sirs or sepsis criteria UA showing red turbid urine, 2+ protein, 2+ urine blood, positive nitrate, 2+ urine bili, 3+ leukocytes, greater than 100 RBC and WBC, 4+ bacteria. Blood and urine cultures were obtained and pending Blood cultures currently showing Gram-negative bacilli isolated in both vials Renal ultrasound showing moderate bilateral hydronephrosis, right nephrolithiasis measuring 8 mm Continue Rocephin 2 g dosing 03/31/24: Urine and blood culture showing Gram-negative bacilli isolated on preliminary read Continue with 2 g Rocephin (2) Dislodged Solis catheter: Code(s): T83.021A - Displacement of indwelling urethral catheter, initial encounter Status: Acute Assessment and Plan: 03/30/24: Initially presented with hematuria due to patient pulling on catheter New catheter was placed while in the ED 03/31/24: No change to current treatment plan, catheter in place (3) Acute kidney injury: Code(s): N17.9 - Acute kidney failure, unspecified Status: Acute Assessment and Plan: 03/30/24: Creatinine 1.4 initially now down to 1.1 Baseline creatinine 0.7-0.8 Continue to trend 03/31/24: Creatinine down to 1.0 EGFR 53 Continue to trend labs (4) Dementia: Qualifiers: Dementia behavioral or psychological symptom: with mood disturbance Dementia severity: mild Dementia type: vascular dementia Qualified Code(s): F01.A3 - Vascular dementia, mild, with mood disturbance Code(s): F03.90 - Unspecified dementia, unspecified severity, without behavioral disturbance, psychotic disturbance, mood disturbance, and anxiety Status: Acute Assessment and Plan: 03/30/24: Alert oriented x2 at baseline Continue Namenda 03/31/24: No change to current treatment plan Time Spent With Patient Time with patient: 15 - 25 minutes Subjective Date/time seen: 03/31/24 09:58 Interval history: Interval history: This is an 83-year-old female presented to hospital on 03/29/2024 with chronic indwelling catheter and hematuria. The patient is baseline alert oriented x2 and had been pulling on the catheter at home. Solis was changed in the ED. workup in the hospital included a renal ultrasound which shown moderate bilateral hydronephrosis, right nephrolithiasis measuring 8 mm. Initial labs showed a white blood cell count of 20.1 INR 1.2, sodium 132, chloride 96, creatinine 1.4, EGFR 36, procalcitonin 0.7. UA was obtained and showed red turbid urine, 2+ protein, 2+ urine blood, positive nitrate, 2+ urine bili, 3+ leukocyte, greater than 100 RBC and wbc's, 4+ bacteria. Urine and blood cultures were obtained and are pending. Blood cultures are showing Gram-negative bacilli in both vials. Patient was given 1 L of normal saline, started on IV fluids, and Rocephin 1 g which was increased to 2 g today. 03/30/24: Patient is alert and oriented x2-3. She knows she is at [facility] but did not know the year, she did know it was summer. VSS, she is afebrile, currently on room air. Patient denies any fever, chills, nausea, vomiting, diarrhea abdominal pain, chest pain, shortness a dysuria. 03/31/24: Patient denies any new complaints today. States she is feeling much better. Review of Systems Review of Systems: All systems reviewed & are unremarkable except as noted in HPI and below ROS unobtainable: Yes unobtainable due to mental status (Very pleasant confused lady) Constitutional: Constitutional: Reports as per HPI and Reports no additional constitutional complaints Eyes: Eyes: Reports as per HPI and Reports no additional eye complaints ENT: Rep
[2024-03-31 14:00] VITALS: BP 129/69; PULSE 97; RESP 16; TEMP 37.1; O2SAT 97
[2024-03-31] MEDS: ATORVASTATIN 10 MG TABLET PO (17:08)
[2024-03-31 21:37] VITALS: BP 141/86; PULSE 96; RESP 15; TEMP 36.7; O2SAT 95
[2024-04-01 05:41] VITALS: BP 128/58; PULSE 94; RESP 15; TEMP 36.7; O2SAT 93
[2024-04-01] MEDS: LEVOTHYROXINE SODIUM 75 MCG TABLET PO (06:44)
[2024-04-01] MEDS: LIOTHYRONINE SODIUM 5 MCG TABLET PO (08:38)
[2024-04-01] MEDS: DOCUSATE SODIUM 100 MG CAPSULE PO (08:38)
[2024-04-01] MEDS: CEFDINIR 300 MG CAPSULE PO ×2 (08:38→20:00)
[2024-04-01] MEDS: TIMOLOL MALEATE 0.5% OP SOLN 5 ML BOTTLE 1 DROP LEFT EYE ×2 (08:38→17:24)
[2024-04-01] MEDS: DORZOLAMIDE HCL 2% OPHTH DROPS 1 DROP LEFT EYE ×2 (08:38→17:24)
[2024-04-01] MEDS: IPRATROPIUM NASAL SPRAY 0.06% 15 ML BOTTLE 2 SPRAY NASAL (08:38)
[2024-04-01] MEDS: ARIPiprazole 2.5 MG TABLET PO (08:38)
[2024-04-01] MEDS: MEMANTINE 10 MG TABLET PO ×2 (08:38→17:23)
--- NOTE | 2024-04-01 13:09 | P.PNIM_ITS ---
Progress Note: A&P Assessment and Plan (1) Catheter-associated urinary tract infection: Code(s): T83.511A - Infection and inflammatory reaction due to indwelling urethral catheter, initial encounter; N39.0 - Urinary tract infection, site not specified Status: Acute Assessment and Plan: 03/30/24: * Patient did not meet sirs or sepsis criteria * UA showing red turbid urine, 2+ protein, 2+ urine blood, positive nitrate, 2+ urine bili, 3+ leukocytes, greater than 100 RBC and WBC, 4+ bacteria. * Blood and urine cultures were obtained and pending * Blood cultures currently showing Gram-negative bacilli isolated in both vials * Renal ultrasound showing moderate bilateral hydronephrosis, right nephrolithiasis measuring 8 mm * Continue Rocephin 2 g dosing 03/31/24: * Urine and blood culture showing Gram-negative bacilli isolated on preliminary read * Continue with 2 g Rocephin 04/01/24: * Urine culture showing Klebsiella pneumoniae on final read which is farmer sensitive * DC Rocephin, start cefdinir (2) Dislodged Solis catheter: Code(s): T83.021A - Displacement of indwelling urethral catheter, initial encounter Status: Acute Assessment and Plan: 03/30/24: * Initially presented with hematuria due to patient pulling on catheter * New catheter was placed while in the ED 03/31/24: * No change to current treatment plan, catheter in place (3) Acute kidney injury: Code(s): N17.9 - Acute kidney failure, unspecified Status: Acute Assessment and Plan: 03/30/24: * Creatinine 1.4 initially now down to 1.1 * Baseline creatinine 0.7-0.8 * Continue to trend 03/31/24: * Creatinine down to 1.10 * EGFR 53 * Continue to trend labs 04/01/24: * Creatinine down to 1.00 * Continue to trend (4) Dementia: Qualifiers: Dementia type: vascular dementia Dementia severity: mild Dementia behavioral or psychological symptom: with mood disturbance Qualified Code(s): F01.A3 - Vascular dementia, mild, with mood disturbance Code(s): F03.90 - Unspecified dementia, unspecified severity, without behavioral disturbance, psychotic disturbance, mood disturbance, and anxiety Status: Acute Assessment and Plan: 03/30/24: * Alert oriented x2 at baseline * Continue Namenda 03/31/24: * No change to current treatment plan Time Spent With Patient Time with patient: 25 - 35 minutes Subjective Date/time seen: 04/01/24 13:09 Interval history: Interval history: This is an 83-year-old female presented to hospital on 03/29/2024 with chronic indwelling catheter and hematuria. The patient is baseline alert oriented x2 and had been pulling on the catheter at home. Solis was changed in the ED. workup in the hospital included a renal ultrasound which shown moderate bilateral hydronephrosis, right nephrolithiasis measuring 8 mm. Initial labs showed a white blood cell count of 20.1 INR 1.2, sodium 132, chloride 96, creatinine 1.4, EGFR 36, procalcitonin 0.7. UA was obtained and showed red turbid urine, 2+ protein, 2+ urine blood, positive nitrate, 2+ urine bili, 3+ leukocyte, greater than 100 RBC and wbc's, 4+ bacteria. Urine and blood cultures were obtained and are pending. Blood cultures are showing Gram- negative bacilli in both vials. Patient was given 1 L of normal saline, started on IV fluids, and Rocephin 1 g which was increased to 2 g today. 03/30/24: Patient is alert and oriented x2-3. She knows she is at [facility] but did not know the year, she did know it was summer. VSS, she is afebrile, currently on room air. P
--- NOTE | 2024-04-01 13:09 | PM.IMPN ---
Progress Note: A&P Assessment and Plan (1) Catheter-associated urinary tract infection: Code(s): T83.511A - Infection and inflammatory reaction due to indwelling urethral catheter, initial encounter; N39.0 - Urinary tract infection, site not specified Status: Acute Assessment and Plan: 03/30/24: Patient did not meet sirs or sepsis criteria UA showing red turbid urine, 2+ protein, 2+ urine blood, positive nitrate, 2+ urine bili, 3+ leukocytes, greater than 100 RBC and WBC, 4+ bacteria. Blood and urine cultures were obtained and pending Blood cultures currently showing Gram-negative bacilli isolated in both vials Renal ultrasound showing moderate bilateral hydronephrosis, right nephrolithiasis measuring 8 mm Continue Rocephin 2 g dosing 03/31/24: Urine and blood culture showing Gram-negative bacilli isolated on preliminary read Continue with 2 g Rocephin 04/01/24: Urine culture showing Klebsiella pneumoniae on final read which is farmer sensitive DC Rocephin, start cefdinir (2) Dislodged Solis catheter: Code(s): T83.021A - Displacement of indwelling urethral catheter, initial encounter Status: Acute Assessment and Plan: 03/30/24: Initially presented with hematuria due to patient pulling on catheter New catheter was placed while in the ED 03/31/24: No change to current treatment plan, catheter in place (3) Acute kidney injury: Code(s): N17.9 - Acute kidney failure, unspecified Status: Acute Assessment and Plan: 03/30/24: Creatinine 1.4 initially now down to 1.1 Baseline creatinine 0.7-0.8 Continue to trend 03/31/24: Creatinine down to 1.10 EGFR 53 Continue to trend labs 04/01/24: Creatinine down to 1.00 Continue to trend (4) Dementia: Qualifiers: Dementia type: vascular dementia Dementia severity: mild Dementia behavioral or psychological symptom: with mood disturbance Qualified Code(s): F01.A3 - Vascular dementia, mild, with mood disturbance Code(s): F03.90 - Unspecified dementia, unspecified severity, without behavioral disturbance, psychotic disturbance, mood disturbance, and anxiety Status: Acute Assessment and Plan: 03/30/24: Alert oriented x2 at baseline Continue Namenda 03/31/24: No change to current treatment plan Time Spent With Patient Time with patient: 25 - 35 minutes Subjective Date/time seen: 04/01/24 13:09 Interval history: Interval history: This is an 83-year-old female presented to hospital on 03/29/2024 with chronic indwelling catheter and hematuria. The patient is baseline alert oriented x2 and had been pulling on the catheter at home. Solis was changed in the ED. workup in the hospital included a renal ultrasound which shown moderate bilateral hydronephrosis, right nephrolithiasis measuring 8 mm. Initial labs showed a white blood cell count of 20.1 INR 1.2, sodium 132, chloride 96, creatinine 1.4, EGFR 36, procalcitonin 0.7. UA was obtained and showed red turbid urine, 2+ protein, 2+ urine blood, positive nitrate, 2+ urine bili, 3+ leukocyte, greater than 100 RBC and wbc's, 4+ bacteria. Urine and blood cultures were obtained and are pending. Blood cultures are showing Gram-negative bacilli in both vials. Patient was given 1 L of normal saline, started on IV fluids, and Rocephin 1 g which was increased to 2 g today. 03/30/24: Patient is alert and oriented x2-3. She knows she is at [facility] but did not know the year, she did know it was summer. VSS, she is afebrile, currently on room air. Patient denies any fever, chills, nausea, vomiting, diarrhea abdominal pain, chest pain, shortness a dysuria. 03/31/24: Patient denies any new complaints today. States she is feeling much better. 04/01/24: No new complaints today. Labs reviewed. Review of Systems Review of Systems: All systems reviewed & are unremarkable except as noted in HPI and below ROS unobtainable: Yes unobtainable due to
--- NOTE | 2024-04-01 13:44 | PM.DS ---
DS: Admitting Diagnosis Discharge Date 04/01/24 Admitting Diagnosis Dislodged Solis catheter Catheter associated urinary tract infection Dementia Acute kidney injury Leukocytosis DS: Discharge Diagnosis Discharge Diagnosis (1) Catheter-associated urinary tract infection: Code(s): T83.511A - Infection and inflammatory reaction due to indwelling urethral catheter, initial encounter; N39.0 - Urinary tract infection, site not specified Status: Acute (2) Dislodged Solis catheter: Code(s): T83.021A - Displacement of indwelling urethral catheter, initial encounter Status: Acute (3) Acute kidney injury: Code(s): N17.9 - Acute kidney failure, unspecified Status: Acute (4) Dementia: Qualifiers: Dementia type: vascular dementia Dementia severity: mild Dementia behavioral or psychological symptom: with mood disturbance Qualified Code(s): F01.A3 - Vascular dementia, mild, with mood disturbance Code(s): F03.90 - Unspecified dementia, unspecified severity, without behavioral disturbance, psychotic disturbance, mood disturbance, and anxiety Status: Acute DS: Summary Hospital Course Reason for hospitalization: Dislodged Solis catheter Catheter associated urinary tract infection Dementia Acute kidney injury Leukocytosis Hospital Course: This is an 83-year-old female presented to hospital on 03/29/2024 with chronic indwelling catheter and hematuria. The patient is baseline alert oriented x2 and had been pulling on the catheter at home. Solis was changed in the ED. workup in the hospital included a renal ultrasound which shown moderate bilateral hydronephrosis, right nephrolithiasis measuring 8 mm. Initial labs showed a white blood cell count of 20.1 INR 1.2, sodium 132, chloride 96, creatinine 1.4, EGFR 36, procalcitonin 0.7. UA was obtained and showed red turbid urine, 2+ protein, 2+ urine blood, positive nitrate, 2+ urine bili, 3+ leukocyte, greater than 100 RBC and wbc's, 4+ bacteria. Urine and blood cultures were obtained and are pending. Blood cultures are showing Gram-negative bacilli in both vials. Patient was given 1 L of normal saline, started on IV fluids, and Rocephin 1 g which was increased to 2 g today. Urine culture and blood culture showing Klebsiella pneumoniae on final read. Patient was switched to cefdinir. PT and OT worked with patient and states that she is a standby assist on all activity. They feel that she is safe to return back to her home. Signs are stable, she is afebrile, she is on room air. She is stable for discharge at this time. She will need to finish a liver antibiotic and follow-up with primary care in 1 week. Final diagnosis: Catheter associated urinary tract infection, acute kidney injury Status at Discharge Cognitive/behavioral status at discharge: Alert and oriented x3 Functional status at discharge: uses cane/walker Overall status at discharge: patient is progressing back to baseline Time Spent with Patient Time attestation: Total time spent providing and/or coordinating discharge services: Time spent: Greater than 30 minutes Exam Narrative: General: In no acute distress, well nourished Cardiac: Normal S1 and S2. RRR, + Murmur, No gallops or friction rubs, peripheral pulses intact. Respiratory: Lungs clear to auscultation, no adventitious lung sounds, currently on room air Gastrointestinal: soft, non-distended, non-tender, normoactive bowel sounds. : Solis sharmaine cloudy Neuro: Alert and oriented x2-3 DS: Data Data Completed and Pending Completed studies during hospitalization: Renal ultrasound Pending studies at discharge: None Imaging My impression: None Discharge Plan Discharge Attending physician on discharge: Donya Nazario Consulting providers: Sumi Marroquin Discharging Clinician: Sumi Marroquin Anticipated Discharge Date/Time: 04/01/24 13:41 Patient Disposition: Home, Self-Care Activity
[2024-04-01 14:00] VITALS: BP 113/62; PULSE 86; RESP 16; TEMP 37.1; O2SAT 99
[2024-04-01] MEDS: ATORVASTATIN 10 MG TABLET PO (17:23)
--- NOTE | 2024-04-01 20:05 | PC.NURSE ---
On 04/01/24, the DIESEL ENGINE INSPECTOR, Katelynn, provided care and completed [facility] documentation on this patient. I have reviewed the DIESEL ENGINE INSPECTOR's documentation and agree with the findings.
[2024-04-01 21:03] VITALS: BP 130/68; PULSE 85; RESP 15; TEMP 36.4; O2SAT 97
[2024-04-02] MEDS: LEVOTHYROXINE SODIUM 75 MCG TABLET PO (05:41)
[2024-04-02 06:00] VITALS: BP 114/68; PULSE 85; RESP 15; TEMP 36.4; O2SAT 96
--- NOTE | 2024-04-02 07:31 | P.PNIM_ITS ---
Progress Note: A&P Assessment and Plan (1) Catheter-associated urinary tract infection: Code(s): T83.511A - Infection and inflammatory reaction due to indwelling urethral catheter, initial encounter; N39.0 - Urinary tract infection, site not specified Status: Acute Assessment and Plan: 03/30/24: * Patient did not meet sirs or sepsis criteria * UA showing red turbid urine, 2+ protein, 2+ urine blood, positive nitrate, 2+ urine bili, 3+ leukocytes, greater than 100 RBC and WBC, 4+ bacteria. * Blood and urine cultures were obtained and pending * Blood cultures currently showing Gram-negative bacilli isolated in both vials * Renal ultrasound showing moderate bilateral hydronephrosis, right nephrolithiasis measuring 8 mm * Continue Rocephin 2 g dosing 03/31/24: * Urine and blood culture showing Gram-negative bacilli isolated on preliminary read * Continue with 2 g Rocephin 04/01/24: * Urine culture showing Klebsiella pneumoniae on final read which is farmer sensitive * DC Rocephin, start cefdinir 04/02/24: * Continue cefdinir (2) Dislodged Solis catheter: Code(s): T83.021A - Displacement of indwelling urethral catheter, initial encounter Status: Acute Assessment and Plan: 03/30/24: * Initially presented with hematuria due to patient pulling on catheter * New catheter was placed while in the ED 03/31/24: * No change to current treatment plan, catheter in place (3) Acute kidney injury: Code(s): N17.9 - Acute kidney failure, unspecified Status: Acute Assessment and Plan: 03/30/24: * Creatinine 1.4 initially now down to 1.1 * Baseline creatinine 0.7-0.8 * Continue to trend 03/31/24: * Creatinine down to 1.10 * EGFR 53 * Continue to trend labs 04/01/24: * Creatinine down to 1.00 * Continue to trend 04/02/24: * Creatinine 0.8 today (4) Dementia: Qualifiers: Dementia type: vascular dementia Dementia severity: mild Dementia behavioral or psychological symptom: with mood disturbance Qualified Code(s): F01.A3 - Vascular dementia, mild, with mood disturbance Code(s): F03.90 - Unspecified dementia, unspecified severity, without behavioral disturbance, psychotic disturbance, mood disturbance, and anxiety Status: Acute Assessment and Plan: 03/30/24: * Alert oriented x2 at baseline * Continue Namenda 03/31/24: * No change to current treatment plan 04/01/24: * Son has concerns with cognition * Will order speech eval for Mini mental (5) Hyponatremia: Code(s): E87.1 - Hypo-osmolality and hyponatremia Status: Acute Assessment and Plan: 04/02/24: * Sodium level steadily dropping, now down to 125 * Likely due to Dementia versus use of Abilify versus dilutional due to Lasix and spironolactone on hold for JAN * Now that JAN is resolved we will start Lasix and Spironolactone * DI work up previously was negative * Will start sodium tabs (6) Weakness: Code(s): R53.1 - Weakness Status: Acute Assessment and Plan: 04/02/24: * Continue PT and OT * Case management working on SNF placement * Spoke with Leanne who is her primary care doctor and updated her on progress * Patient does appear weak, however she has been doing well with therapy and is currently a stand by assist with all therapy. Subjective Date/time seen: 04/02/24 07:31 Interval history: Interval history: This is an 83-year-old female presented to hospital on 03/29/2024 with chronic indwelling catheter and hemat
--- NOTE | 2024-04-02 07:31 | PM.IMPN ---
Progress Note: A&P Assessment and Plan (1) Catheter-associated urinary tract infection: Code(s): T83.511A - Infection and inflammatory reaction due to indwelling urethral catheter, initial encounter; N39.0 - Urinary tract infection, site not specified Status: Acute Assessment and Plan: 03/30/24: Patient did not meet sirs or sepsis criteria UA showing red turbid urine, 2+ protein, 2+ urine blood, positive nitrate, 2+ urine bili, 3+ leukocytes, greater than 100 RBC and WBC, 4+ bacteria. Blood and urine cultures were obtained and pending Blood cultures currently showing Gram-negative bacilli isolated in both vials Renal ultrasound showing moderate bilateral hydronephrosis, right nephrolithiasis measuring 8 mm Continue Rocephin 2 g dosing 03/31/24: Urine and blood culture showing Gram-negative bacilli isolated on preliminary read Continue with 2 g Rocephin 04/01/24: Urine culture showing Klebsiella pneumoniae on final read which is farmer sensitive DC Rocephin, start cefdinir 04/02/24: Continue cefdinir (2) Dislodged Solis catheter: Code(s): T83.021A - Displacement of indwelling urethral catheter, initial encounter Status: Acute Assessment and Plan: 03/30/24: Initially presented with hematuria due to patient pulling on catheter New catheter was placed while in the ED 03/31/24: No change to current treatment plan, catheter in place (3) Acute kidney injury: Code(s): N17.9 - Acute kidney failure, unspecified Status: Acute Assessment and Plan: 03/30/24: Creatinine 1.4 initially now down to 1.1 Baseline creatinine 0.7-0.8 Continue to trend 03/31/24: Creatinine down to 1.10 EGFR 53 Continue to trend labs 04/01/24: Creatinine down to 1.00 Continue to trend 04/02/24: Creatinine 0.8 today (4) Dementia: Qualifiers: Dementia type: vascular dementia Dementia severity: mild Dementia behavioral or psychological symptom: with mood disturbance Qualified Code(s): F01.A3 - Vascular dementia, mild, with mood disturbance Code(s): F03.90 - Unspecified dementia, unspecified severity, without behavioral disturbance, psychotic disturbance, mood disturbance, and anxiety Status: Acute Assessment and Plan: 03/30/24: Alert oriented x2 at baseline Continue Namenda 03/31/24: No change to current treatment plan 04/01/24: Son has concerns with cognition Will order speech eval for Mini mental (5) Hyponatremia: Code(s): E87.1 - Hypo-osmolality and hyponatremia Status: Acute Assessment and Plan: 04/02/24: Sodium level steadily dropping, now down to 125 Likely due to Dementia versus use of Abilify versus dilutional due to Lasix and spironolactone on hold for JAN Now that JAN is resolved we will start Lasix and Spironolactone DI work up previously was negative Will start sodium tabs (6) Weakness: Code(s): R53.1 - Weakness Status: Acute Assessment and Plan: 04/02/24: Continue PT and OT Case management working on SNF placement Spoke with Leanne who is her primary care doctor and updated her on progress Patient does appear weak, however she has been doing well with therapy and is currently a stand by assist with all therapy. Subjective Date/time seen: 04/02/24 07:31 Interval history: Interval history: This is an 83-year-old female presented to hospital on 03/29/2024 with chronic indwelling catheter and hematuria. The patient is baseline alert oriented x2 and had been pulling on the catheter at home. Solis was changed in the ED. workup in the hospital included a renal ultrasound which shown moderate bilateral hydronephrosis, right nephrolithiasis measuring 8 mm. Initial labs showed a white blood cell count of 20.1 INR 1.2, sodium 132, chloride 96, creatinine 1.4, EGFR 36, procalcitonin 0.7. UA was obtained and showed red turbid urine, 2+ protein, 2+ urine blood, positive nitrate, 2+ urine jose
[2024-04-02 08:21] LABS: Basophils Percent Auto 0.3 % (0.2-1.2); Eosinophils Absolute Auto 0.1 K/mm3 (0-0.3); Eosinophils Percent Auto 0.8 % (0-4.4); Hematocrit 36.7 % (37.0-47.0); Hemoglobin 12.3 g/dL (12.0-15.0); Immature Granulocyte Percent A 1.4 % (0-0.5); Lymphocytes Absolute Auto 0.78 K/mm3 (0.9-3.2); Lymphocytes Percent Auto 10.7 % (18.3-44.2); Mean Corpuscular HGB Conc 33.5 g/dl (32-36); Mean Corpuscular Hemoglobin 28.8 pg (26-34); Mean Corpuscular Volume 85.9 fl (80-100); Mean Platelet Volume 10.5 fl (7.4-10.4); Monocytes Percent Auto 13.8 % (2.6-8.5); Neutrophils Absolute Auto 5.4 K/mm3 (1.3-6.7); Platelet Count Result 146 k/mm3 (150-375); Red Blood Count 4.27 M/mm3 (4.2-5.4); White Blood Count 7.3 K/mm3 (4.5-10.0)
[2024-04-02 08:38] LABS: Alanine Aminotransferase 141 U/L (6-35); Albumin Level 2.8 g/dL (3.5-5.1); Alkaline Phosphatase 76 U/L (38-126); Anion Gap 4 mmol/L (4-12); Aspartate Amino Transferase 138 U/L (14-36); Bilirubin,Total 0.4 mg/dL (0.2-1.3); Blood Urea Nitrogen 18 mg/dL (7-17); Calcium 8.1 mg/dL (8.4-10.2); Carbon Dioxide 28 mmol/L (22-30); Chloride 93 mmol/L (98-107); Estimated CRCL calculation 37 ml/min; Estimated Glomerular Filt Rate > 60; Glucose 83 mg/dL (65-110); Potassium 4.4 mmol/L (3.4-5.0); Sodium 125 mmol/L (137-145)
[2024-04-02] MEDS: LIOTHYRONINE SODIUM 5 MCG TABLET PO (08:47)
[2024-04-02] MEDS: DOCUSATE SODIUM 100 MG CAPSULE PO (08:47)
[2024-04-02] MEDS: ARIPiprazole 2.5 MG TABLET PO (08:47)
[2024-04-02] MEDS: CEFDINIR 300 MG CAPSULE PO (08:47)
[2024-04-02] MEDS: MEMANTINE 10 MG TABLET PO ×2 (08:47→17:48)
[2024-04-02] MEDS: DORZOLAMIDE HCL 2% OPHTH DROPS 1 DROP LEFT EYE ×2 (08:49→17:48)
[2024-04-02] MEDS: IPRATROPIUM NASAL SPRAY 0.06% 15 ML BOTTLE 2 SPRAY NASAL (08:49)
[2024-04-02] MEDS: TIMOLOL MALEATE 0.5% OP SOLN 5 ML BOTTLE 1 DROP LEFT EYE ×2 (08:49→17:48)
[2024-04-02] MEDS: SULFAMETHOXAZOLE/TRIMETHOPRIM 800/160 MG DS TABLET 2 TAB PO ×2 (13:43→21:33)
[2024-04-02] MEDS: ERGOCALCIFEROL 50,000 UNITS CAPSULE 50000 UNITS PO (13:43)
[2024-04-02 14:00] VITALS: BP 137/69; PULSE 77; RESP 16; TEMP 36.4; O2SAT 99
--- NOTE | 2024-04-02 17:11 | PCSTNOTE ---
SLUMS mental state examination completed this afternoon. See Communication Evaluation note in Speech Therapy chart.
[2024-04-02] MEDS: SODIUM CHLORIDE 1 GM TABLET PO (17:48)
[2024-04-02] MEDS: ATORVASTATIN 10 MG TABLET PO (17:48)
[2024-04-02 21:05] VITALS: BP 129/63; PULSE 108; RESP 20; TEMP 38.3; O2SAT 98
[2024-04-02 21:48] VITALS: TEMP 38.3
[2024-04-02] MEDS: ACETAMINOPHEN 500 MG TABLET 1000 MG PO (21:48)
[2024-04-02 22:48] VITALS: TEMP 36.7
[2024-04-02 23:37] VITALS: TEMP 36.7
[2024-04-03 05:15] VITALS: BP 104/50; PULSE 88; RESP 22; TEMP 36.8; O2SAT 94
[2024-04-03] MEDS: LEVOTHYROXINE SODIUM 75 MCG TABLET PO (05:45)
[2024-04-03] MEDS: SULFAMETHOXAZOLE/TRIMETHOPRIM 800/160 MG DS TABLET 2 TAB PO ×2 (08:31→20:40)
[2024-04-03] MEDS: FUROSEMIDE 20 MG TABLET PO (08:31)
[2024-04-03] MEDS: ARIPiprazole 2.5 MG TABLET PO (08:31)
[2024-04-03] MEDS: LIOTHYRONINE SODIUM 5 MCG TABLET PO (08:31)
[2024-04-03] MEDS: SPIRONOLACTONE 25 MG TABLET 50 MG PO (08:31)
[2024-04-03] MEDS: SODIUM CHLORIDE 1 GM TABLET PO ×2 (08:31→16:24)
[2024-04-03] MEDS: MEMANTINE 10 MG TABLET PO ×2 (08:31→16:24)
[2024-04-03] MEDS: CLOPIDOGREL BISULFATE 75 MG TABLET PO (08:31)
[2024-04-03] MEDS: DOCUSATE SODIUM 100 MG CAPSULE PO (08:31)
[2024-04-03] MEDS: TIMOLOL MALEATE 0.5% OP SOLN 5 ML BOTTLE 1 DROP LEFT EYE ×2 (08:32→16:24)
[2024-04-03] MEDS: DORZOLAMIDE HCL 2% OPHTH DROPS 1 DROP LEFT EYE ×2 (08:32→16:24)
--- NOTE | 2024-04-03 09:29 | P.DS_ITS ---
DS: Admitting Diagnosis Discharge Date 04/03/24 DS: Summary Time Spent with Patient Time attestation: Total time spent providing and/or coordinating discharge services: DS: Data Data Completed and Pending Labs on day of discharge: Labs from last 24 hours 04/02/24 08:00 Serum Osmolality Pending Discharge Plan Discharge Attending physician on discharge: Donya Nazario Consulting providers: Sumi Marroquin Discharging Clinician: Sumi Marroquin Anticipated Discharge Date/Time: 04/01/24 13:41 Patient Disposition: Home Health Service Activity: as tolerated Diet: as tolerated Discharge Instructions: * With initial your antibiotics as directed even if your feeling better * Follow-up with your primary care physician in 1 week * Drink plenty of fluids throughout the day Care Coordination: Patient to have [facility] for PT/OT eval and treat, and fdc. Their phone number is [phone] if you have any questions. They will contact you to schedule their first visit. RN Please fax discharge instructions to [phone]. Patient Instructions: Antibiotic Form, Sulfamethoxazole/Trimethoprim (By mouth), Urinary Tract Infection in Older Adults (DC) Patient Language: [place] Stand Alone Forms: General Discharge Information Follow-up/Referrals: Leanne Todd MD [Primary Care Provider] - 1 Week Discharge Medications: New sodium chloride 1,000 mg Tablet,Soluble 1,000 mg PO BID Qty: 60 0RF sulfamethoxazole-trimethoprim 800-160 mg Tablet 2 tab PO Q12HR Qty: 3 0RF Continued spironolactone 25 mg tablet 50 mg PO DAILY aripiprazole [Abilify] 5 mg tablet 2.5 mg PO DAILY Rx Instructions: 1/2 tab timolol maleate 0.5 % drops 1 drp LEFT EYE BID dorzolamide 2 % drops 1 drp LEFT EYE BID acetaminophen [Tylenol Arthritis Pain] 650 mg Tablet Extended Release 650 mg PO Q8H PRN (Reason: pain 1-5) docusate sodium [Colace] 100 mg capsule 100 mg PO DAILY Qty: 90 4RF cholecalciferol (vitamin D3) 1,250 mcg (50,000 unit) capsule 1,250 mcg PO WEEKLY Qty: 14 3RF Rx Instructions: mondays memantine 10 mg tablet 10 mg PO BID Qty: 200 3RF clopidogrel 75 mg tablet 75 mg PO DAILY Qty: 90 3RF Rx Instructions: TAKE ONE TABLET BY MOUTH DAILY atorvastatin 10 mg tablet 10 mg PO QPM Qty: 90 3RF Rx Instructions: TAKE ONE TABLET BY MOUTH EVERY EVENING ipratropium bromide 42 mcg (0.06 %) spray,non-aerosol 2 spray intranasal TID PRN (Reason: allergy symptoms) Qty: 15 5RF Rx Instructions: administer into each nostril liothyronine 5 mcg tablet 5 mcg PO DAILY Qty: 90 3RF alendronate 70 mg tablet 70 mg PO WEEKLY Qty: 12 4RF Rx Instructions: mondays furosemide 20 mg tablet 20 mg PO DAILY Qty: 90 3RF levothyroxine 75 mcg tablet 75 mcg PO DAILY Qty: 100 4RF oxycodone 5 mg tablet 2.5 mg PO BID Qty: 60 0RF Date of admission: 03/30/24 10:49 Primary Care Provider: Leanne Todd Admitting Provider: Donya Nazario Attending physician on admission: Donya Nazario Condition: Improved
[2024-04-03 10:14] LABS: Basophils Absolute Auto 0.1 K/mm3 (0.0-0.1); Basophils Percent Auto 0.4 % (0.2-1.2); Eosinophils Absolute Auto 0.1 K/mm3 (0-0.3); Eosinophils Percent Auto 0.4 % (0-4.4); Hematocrit 38.3 % (37.0-47.0); Hemoglobin 12.5 g/dL (12.0-15.0); Immature Granulocyte Absolute 0.28 K/mm3 (0.00-0.031); Immature Granulocyte Percent A 1.7 % (0-0.5); Lymphocytes Absolute Auto 0.32 K/mm3 (0.9-3.2); Mean Corpuscular HGB Conc 32.6 g/dl (32-36); Mean Corpuscular Hemoglobin 27.9 pg (26-34); Mean Corpuscular Volume 85.5 fl (80-100); Mean Platelet Volume 10.6 fl (7.4-10.4); Monocytes Absolute Auto 0.3 K/mm3 (0.1-0.6); Monocytes Percent Auto 1.7 % (2.6-8.5); Neutrophils Absolute Auto 15.1 K/mm3 (1.3-6.7); Neutrophils Percent Auto 93.8 % (45.5-73.1); Platelet Count Result 159 k/mm3 (150-375); Red Blood Count 4.48 M/mm3 (4.2-5.4); White Blood Count 16.1 K/mm3 (4.5-10.0)
[2024-04-03 10:37] LABS: Alanine Aminotransferase 124 U/L (6-35); Alkaline Phosphatase 95 U/L (38-126); Anion Gap 13 mmol/L (4-12); Aspartate Amino Transferase 88 U/L (14-36); Bilirubin,Total 0.4 mg/dL (0.2-1.3); Blood Urea Nitrogen 23 mg/dL (7-17); Calcium 8.2 mg/dL (8.4-10.2); Carbon Dioxide 18 mmol/L (22-30); Chloride 93 mmol/L (98-107); Estimated CRCL calculation 23 ml/min; Estimated Glomerular Filt Rate 39; Glucose 171 mg/dL (65-110); Potassium 4.3 mmol/L (3.4-5.0); Sodium 124 mmol/L (137-145)
--- NOTE | 2024-04-03 10:49 | P.PNIM_ITS ---
Progress Note: A&P Assessment and Plan (1) Catheter-associated urinary tract infection: Code(s): T83.511A - Infection and inflammatory reaction due to indwelling urethral catheter, initial encounter; N39.0 - Urinary tract infection, site not specified Status: Acute Assessment and Plan: 03/30/24: * Patient did not meet sirs or sepsis criteria * UA showing red turbid urine, 2+ protein, 2+ urine blood, positive nitrate, 2+ urine bili, 3+ leukocytes, greater than 100 RBC and WBC, 4+ bacteria. * Blood and urine cultures were obtained and pending * Blood cultures currently showing Gram-negative bacilli isolated in both vials * Renal ultrasound showing moderate bilateral hydronephrosis, right nephrolithiasis measuring 8 mm * Continue Rocephin 2 g dosing 03/31/24: * Urine and blood culture showing Gram-negative bacilli isolated on preliminary read * Continue with 2 g Rocephin 04/01/24: * Urine culture showing Klebsiella pneumoniae on final read which is farmer sensitive * DC Rocephin, start cefdinir 04/02/24: * Continue cefdinir 04/03/24: * After speaking with ID pharmacist we switched patient antibiotics to Bactrim yesterday (2) Dislodged Solis catheter: Code(s): T83.021A - Displacement of indwelling urethral catheter, initial encounter Status: Acute Assessment and Plan: 03/30/24: * Initially presented with hematuria due to patient pulling on catheter * New catheter was placed while in the ED 03/31/24: * No change to current treatment plan, catheter in place (3) Acute kidney injury: Code(s): N17.9 - Acute kidney failure, unspecified Status: Acute Assessment and Plan: 03/30/24: * Creatinine 1.4 initially now down to 1.1 * Baseline creatinine 0.7-0.8 * Continue to trend 03/31/24: * Creatinine down to 1.10 * EGFR 53 * Continue to trend labs 04/01/24: * Creatinine down to 1.00 * Continue to trend 04/02/24: * Creatinine 0.8 today 04/03/24: * Hold lasix and spironolactone * Creatinine 1.3 today * She is net negative 1L today, we will give 500 ml bolus over 2 hours for hydration. * We will recheck labs later this afternoon * Nephrology consulted (4) Dementia: Qualifiers: Dementia type: vascular dementia Dementia severity: mild Dementia behavioral or psychological symptom: with mood disturbance Qualified Code(s): F01.A3 - Vascular dementia, mild, with mood disturbance Code(s): F03.90 - Unspecified dementia, unspecified severity, without behavioral disturbance, psychotic disturbance, mood disturbance, and anxiety Status: Acute Assessment and Plan: 03/30/24: * Alert oriented x2 at baseline * Continue Namenda 03/31/24: * No change to current treatment plan 04/01/24: * Son has concerns with cognition * Will order speech eval for Mini mental (5) Hyponatremia: Code(s): E87.1 - Hypo-osmolality and hyponatremia Status: Acute Assessment and Plan: 04/02/24: * Sodium level steadily dropping, now down to 125 * Likely due to Dementia versus use of Abilify versus dilutional due to Lasix and spironolactone on hold for JAN * Now that JAN is resolved we will start Lasix and Spironolactone * DI work up previously was negative * Will start sodium tabs 04/03/24: * Na+ 124 today * Increased creatinine with adding back her diuretics * Hold spironolactone and lasix * Nephrology consulted. * Dr. Perdomo her PCP states that her Na+ level runs 133-134 at baseline * continue sodium tabs (6)
--- NOTE | 2024-04-03 10:49 | PM.IMPN ---
Progress Note: A&P Assessment and Plan (1) Catheter-associated urinary tract infection: Code(s): T83.511A - Infection and inflammatory reaction due to indwelling urethral catheter, initial encounter; N39.0 - Urinary tract infection, site not specified Status: Acute Assessment and Plan: 03/30/24: Patient did not meet sirs or sepsis criteria UA showing red turbid urine, 2+ protein, 2+ urine blood, positive nitrate, 2+ urine bili, 3+ leukocytes, greater than 100 RBC and WBC, 4+ bacteria. Blood and urine cultures were obtained and pending Blood cultures currently showing Gram-negative bacilli isolated in both vials Renal ultrasound showing moderate bilateral hydronephrosis, right nephrolithiasis measuring 8 mm Continue Rocephin 2 g dosing 03/31/24: Urine and blood culture showing Gram-negative bacilli isolated on preliminary read Continue with 2 g Rocephin 04/01/24: Urine culture showing Klebsiella pneumoniae on final read which is farmer sensitive DC Rocephin, start cefdinir 04/02/24: Continue cefdinir 04/03/24: After speaking with ID pharmacist we switched patient antibiotics to Bactrim yesterday (2) Dislodged Solis catheter: Code(s): T83.021A - Displacement of indwelling urethral catheter, initial encounter Status: Acute Assessment and Plan: 03/30/24: Initially presented with hematuria due to patient pulling on catheter New catheter was placed while in the ED 03/31/24: No change to current treatment plan, catheter in place (3) Acute kidney injury: Code(s): N17.9 - Acute kidney failure, unspecified Status: Acute Assessment and Plan: 03/30/24: Creatinine 1.4 initially now down to 1.1 Baseline creatinine 0.7-0.8 Continue to trend 03/31/24: Creatinine down to 1.10 EGFR 53 Continue to trend labs 04/01/24: Creatinine down to 1.00 Continue to trend 04/02/24: Creatinine 0.8 today 04/03/24: Hold lasix and spironolactone Creatinine 1.3 today She is net negative 1L today, we will give 500 ml bolus over 2 hours for hydration. We will recheck labs later this afternoon Nephrology consulted (4) Dementia: Qualifiers: Dementia type: vascular dementia Dementia severity: mild Dementia behavioral or psychological symptom: with mood disturbance Qualified Code(s): F01.A3 - Vascular dementia, mild, with mood disturbance Code(s): F03.90 - Unspecified dementia, unspecified severity, without behavioral disturbance, psychotic disturbance, mood disturbance, and anxiety Status: Acute Assessment and Plan: 03/30/24: Alert oriented x2 at baseline Continue Namenda 03/31/24: No change to current treatment plan 04/01/24: Son has concerns with cognition Will order speech eval for Mini mental (5) Hyponatremia: Code(s): E87.1 - Hypo-osmolality and hyponatremia Status: Acute Assessment and Plan: 04/02/24: Sodium level steadily dropping, now down to 125 Likely due to Dementia versus use of Abilify versus dilutional due to Lasix and spironolactone on hold for JAN Now that JAN is resolved we will start Lasix and Spironolactone DI work up previously was negative Will start sodium tabs 04/03/24: Na+ 124 today Increased creatinine with adding back her diuretics Hold spironolactone and lasix Nephrology consulted. Dr. Perdomo her PCP states that her Na+ level runs 133-134 at baseline continue sodium tabs (6) Weakness: Code(s): R53.1 - Weakness Status: Acute Assessment and Plan: 04/02/24: Continue PT and OT Case management working on SNF placement Spoke with Leanne who is her primary care doctor and updated her on progress Patient does appear weak, however she has been doing well with therapy and is currently a stand by assist with all therapy. 04/03/24: No change to current treatment plan Subjective Date/time seen: 04/03/24 10:49 Interval history: Interval history: T
[2024-04-03] MEDS: SODIUM CHLORIDE 0.9% IV 500 ML IV CONT (11:01)
--- NOTE | 2024-04-03 12:12 | PM.CNNEP ---
Assessment and Plan Assessment and plan (1) Acute kidney injury: Code(s): N17.9 - Acute kidney failure, unspecified Status: Acute Assessment and Plan: initially improving prior to AM labs today admitted with creatinine of 1.4mg/dl and trended down to normal creatinine up to 1.3mg/dl this AM diuretics on hold IVF trial/challenge today follow up labs this afternoon and tomorrow morning (2) Hyponatremia: Code(s): E87.1 - Hypo-osmolality and hyponatremia Status: Acute Assessment and Plan: acute on chronic baseline sodium flucutates to extremes seems to average out to 129 - 134mmol/L exacerbated by medications and diuretics no apparent neurological sequelae already on salt tabs diuretics on hold due to #1 consider adding fluid restriction as well (3) Catheter-associated urinary tract infection: Code(s): T83.511A - Infection and inflammatory reaction due to indwelling urethral catheter, initial encounter; N39.0 - Urinary tract infection, site not specified Status: Acute Assessment and Plan: admission UA suggestive blood and urine cultures with Klebsiella on antibiotic therapy (4) Dislodged Leon catheter: Code(s): T83.021A - Displacement of indwelling urethral catheter, initial encounter Status: Acute Assessment and Plan: patient apparently pulling at previous leon catheter hematuria noted on presentation s/p removal/replacement of leon catheter in ER (5) Benign essential HTN: Code(s): I10 - Essential (primary) hypertension Status: Chronic Assessment and Plan: reasonable control at this time follow trend of hemodynamics (6) Dementia: Qualifiers: Dementia type: vascular dementia Dementia severity: mild Dementia behavioral or psychological symptom: with mood disturbance Qualified Code(s): 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 Thank you for allowing me to participate in care of this patient. History of Present Illness Reason for Consult Consult date: 04/03/24 Reason for consult: acute renal failure and hyponatremia Chief Complaint Chief complaint: pyelonphritis,hematuria History of Present Illness Narrative: The patient is an 83-year-old female with a past medical history as outlined below for Leon catheter dysfunction. On the day prior to admission, the patient's son noted low but a blood in her Leon catheter. He did not think much of it but did call the patient's PCP who instructed him to hold her anti-platelet therapy and monitor the situation. Unfortunately, on the day of admission, the blood her urine appeared to be significantly worse and it seemed that her Leon catheter had stopped draining completely. Apparently there was noted leakage around the catheter as well. On further questioning, the patient apparently had been pulling at her catheter for last day or so. Given this change in her condition, she came to the emergency room for further assessment. Workup and evaluation in the emergency room demonstrated the patient to be hemodynamically stable and in no acute distress. Given the issues with her Leon catheter, the balloon was deflated and subsequently repositioned and there is a immediate return of urine. The Leon catheter was then completely exchange for a new one. Routine blood tests were done was significant which were significant for an elevated white blood cell count, mild hyponatremia with a sodium 132, and a creatinine of 1.4 which is somewhat higher than her basel
--- NOTE | 2024-04-03 12:12 | P.CONNP_ITS ---
Assessment and Plan Assessment and plan (1) Acute kidney injury: Code(s): N17.9 - Acute kidney failure, unspecified Status: Acute Assessment and Plan: * initially improving prior to AM labs today * admitted with creatinine of 1.4mg/dl and trended down to normal * creatinine up to 1.3mg/dl this AM * diuretics on hold * IVF trial/challenge today * follow up labs this afternoon and tomorrow morning (2) Hyponatremia: Code(s): E87.1 - Hypo-osmolality and hyponatremia Status: Acute Assessment and Plan: * acute on chronic * baseline sodium flucutates to extremes * seems to average out to 129 - 134mmol/L * exacerbated by medications and diuretics * no apparent neurological sequelae * already on salt tabs * diuretics on hold due to #1 * consider adding fluid restriction as well (3) Catheter-associated urinary tract infection: Code(s): T83.511A - Infection and inflammatory reaction due to indwelling urethral catheter, initial encounter; N39.0 - Urinary tract infection, site not specified Status: Acute Assessment and Plan: * admission UA suggestive * blood and urine cultures with Klebsiella * on antibiotic therapy (4) Dislodged Leon catheter: Code(s): T83.021A - Displacement of indwelling urethral catheter, initial encounter Status: Acute Assessment and Plan: * patient apparently pulling at previous leon catheter * hematuria noted on presentation * s/p removal/replacement of leon catheter in ER (5) Benign essential HTN: Code(s): I10 - Essential (primary) hypertension Status: Chronic Assessment and Plan: * reasonable control at this time * follow trend of hemodynamics (6) Dementia: Qualifiers: Dementia type: vascular dementia Dementia severity: mild Dementia behavioral or psychological symptom: with mood disturbance Qualified Code(s): 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 Thank you for allowing me to participate in care of this patient. History of Present Illness Reason for Consult Consult date: 04/03/24 Reason for consult: acute renal failure and hyponatremia Chief Complaint Chief complaint: pyelonphritis,hematuria History of Present Illness Narrative: The patient is an 83-year-old female with a past medical history as outlined below for Leon catheter dysfunction. On the day prior to admission, the patient's son noted low but a blood in her Leon catheter. He did not think much of it but did call the patient's PCP who instructed him to hold her anti-platelet therapy and monitor the situation. Unfortunately, on the day of admission, the blood her urine appeared to be sign ificantly worse and it seemed that her Leon catheter had stopped draining completely. Apparently there was noted leakage around the catheter as well. On further questioning, the patient apparently had been pulling at her catheter for last day or so. Given this change in her condition, she came to the emergency room for further assessment. Workup and evaluation in the emergency room demonstrated the patient to be hemodynamically stable and in no acute distress. Given the issu
[2024-04-03 14:00] VITALS: BP 102/68; PULSE 81; RESP 19; TEMP 36.6; O2SAT 89
[2024-04-03] MEDS: ATORVASTATIN 10 MG TABLET PO (16:24)
[2024-04-03 17:57] LABS: Anion Gap 10 mmol/L (4-12); Blood Urea Nitrogen 23 mg/dL (7-17); Calcium 8.2 mg/dL (8.4-10.2); Carbon Dioxide 22 mmol/L (22-30); Chloride 91 mmol/L (98-107); Estimated CRCL calculation 27 ml/min; Estimated Glomerular Filt Rate 47; Glucose 113 mg/dL (65-110); Potassium 4.7 mmol/L (3.4-5.0); Sodium 123 mmol/L (137-145)
[2024-04-03 21:32] VITALS: BP 103/68; PULSE 84; RESP 18; TEMP 37.2; O2SAT 98
--- NOTE | 2024-04-04 00:48 | PC.NURSE ---
This nurse precepting Danya Allan RN License Pending. I agree with assessment and charting for this patient.
[2024-04-04 03:36] LABS: Total Protein Urine Random 27 mg/dL; Urea Random Urine 708 MG/DL
[2024-04-04 03:57] LABS: Creatinine Urine 60.7 mg/dL; Total Protein Urine Random 27 mg/dL; Ur Ttl Prot Creatinine Ratio 0.44 mg/mg (0-0.20)
[2024-04-04 03:59] LABS: Sodium Urine Random 50 meq/L
[2024-04-04 06:00] VITALS: BP 106/53; PULSE 80; RESP 18; TEMP 36.9; O2SAT 98
[2024-04-04 06:24] LABS: Alanine Aminotransferase 119 U/L (6-35); Albumin Level 2.6 g/dL (3.5-5.1); Alkaline Phosphatase 88 U/L (38-126); Anion Gap 8 mmol/L (4-12); Aspartate Amino Transferase 86 U/L (14-36); Bilirubin,Total 0.2 mg/dL (0.2-1.3); Blood Urea Nitrogen 21 mg/dL (7-17); Carbon Dioxide 24 mmol/L (22-30); Chloride 91 mmol/L (98-107); Estimated CRCL calculation 25 ml/min; Estimated Glomerular Filt Rate 43; Glucose 77 mg/dL (65-110); Potassium 4.6 mmol/L (3.4-5.0); Sodium 123 mmol/L (137-145)
[2024-04-04] MEDS: LEVOTHYROXINE SODIUM 75 MCG TABLET PO (06:29)
[2024-04-04] MEDS: SULFAMETHOXAZOLE/TRIMETHOPRIM 800/160 MG DS TABLET 2 TAB PO (08:46)
[2024-04-04] MEDS: LIOTHYRONINE SODIUM 5 MCG TABLET PO (08:47)
[2024-04-04] MEDS: SODIUM CHLORIDE 1 GM TABLET PO (08:47)
[2024-04-04] MEDS: MEMANTINE 10 MG TABLET PO (08:47)
[2024-04-04] MEDS: CLOPIDOGREL BISULFATE 75 MG TABLET PO (08:47)
[2024-04-04] MEDS: ARIPiprazole 2.5 MG TABLET PO (08:47)
[2024-04-04] MEDS: DOCUSATE SODIUM 100 MG CAPSULE PO (08:47)
[2024-04-04] MEDS: DORZOLAMIDE HCL 2% OPHTH DROPS 1 DROP LEFT EYE (08:48)
[2024-04-04] MEDS: TIMOLOL MALEATE 0.5% OP SOLN 5 ML BOTTLE 1 DROP LEFT EYE (08:48)
[2024-04-04 10:05] LABS: Basophils Percent Auto 0.3 % (0.2-1.2); Eosinophils Absolute Auto 0.2 K/mm3 (0-0.3); Eosinophils Percent Auto 2.3 % (0-4.4); Hematocrit 32.5 % (37.0-47.0); Hemoglobin 10.8 g/dL (12.0-15.0); Immature Granulocyte Absolute 0.22 K/mm3 (0.00-0.031); Immature Granulocyte Percent A 2.2 % (0-0.5); Lymphocytes Absolute Auto 0.47 K/mm3 (0.9-3.2); Lymphocytes Percent Auto 4.7 % (18.3-44.2); Mean Corpuscular HGB Conc 33.2 g/dl (32-36); Mean Corpuscular Hemoglobin 27.7 pg (26-34); Mean Corpuscular Volume 83.3 fl (80-100); Monocytes Absolute Auto 0.5 K/mm3 (0.1-0.6); Monocytes Percent Auto 4.6 % (2.6-8.5); Neutrophils Absolute Auto 8.5 K/mm3 (1.3-6.7); Neutrophils Percent Auto 85.9 % (45.5-73.1); Platelet Count Result 155 k/mm3 (150-375); White Blood Count 9.9 K/mm3 (4.5-10.0)
--- NOTE | 2024-04-04 13:11 | PM.DS ---
DS: Admitting Diagnosis Discharge Date 04/04/24 Admitting Diagnosis Dislodged Solis Catheter associated urinary tract infection Dementia Acute kidney injury Leukocytosis DS: Discharge Diagnosis Discharge Diagnosis (1) Catheter-associated urinary tract infection: Code(s): T83.511A - Infection and inflammatory reaction due to indwelling urethral catheter, initial encounter; N39.0 - Urinary tract infection, site not specified Status: Acute (2) Dislodged Solis catheter: Code(s): T83.021A - Displacement of indwelling urethral catheter, initial encounter Status: Acute (3) Acute kidney injury: Code(s): N17.9 - Acute kidney failure, unspecified Status: Acute (4) Dementia: Qualifiers: Dementia behavioral or psychological symptom: with mood disturbance Dementia severity: mild Dementia type: vascular dementia Qualified Code(s): F01.A3 - Vascular dementia, mild, with mood disturbance Code(s): F03.90 - Unspecified dementia, unspecified severity, without behavioral disturbance, psychotic disturbance, mood disturbance, and anxiety Status: Acute (5) Hyponatremia: Code(s): E87.1 - Hypo-osmolality and hyponatremia Status: Acute (6) Weakness: Code(s): R53.1 - Weakness Status: Acute DS: Summary Hospital Course Reason for hospitalization: Dislodged Solis Catheter associated urinary tract infection Dementia Acute kidney injury Leukocytosis Hospital Course: This is an 83-year-old female presented to hospital on 03/29/2024 with chronic indwelling catheter and hematuria. The patient is baseline alert oriented x2 and had been pulling on the catheter at home. Solis was changed in the ED. workup in the hospital included a renal ultrasound which shown moderate bilateral hydronephrosis, right nephrolithiasis measuring 8 mm. Initial labs showed a white blood cell count of 20.1 INR 1.2, sodium 132, chloride 96, creatinine 1.4, EGFR 36, procalcitonin 0.7. UA was obtained and showed red turbid urine, 2+ protein, 2+ urine blood, positive nitrate, 2+ urine bili, 3+ leukocyte, greater than 100 RBC and wbc's, 4+ bacteria. Urine and blood cultures were obtained and are pending. Blood cultures are showing Gram-negative bacilli in both vials. Patient was given 1 L of normal saline, started on IV fluids, and Rocephin 1 g which was increased to 2 g today. Blood in urine culture showing Klebsiella pneumonia on final read. Patient was originally started on cefdinir and then transitioned over to Bactrim for better coverage. She also worked with physical therapy and occupational therapy for rehab needs and was doing very well ambulating in the halls with standby assist. Family had concerns about her returning home safely considering she has dementia and is legally blind. Family was requesting SNF placement. Case management sent out initial referrals but has been unsuccessful in finding SNF placement. Home health was set up for the patient. She was also noted to have a low-sodium count which is chronic. Currently sodium is 123. According to her primary care physician she runs 133-134. Nephrology was consulted for further assistance. Patient was placed on salt tabs as she is already had SIADH workup the past which was negative. She is on Abilify 5 however primary care physician feels that the low sodium is not caused from the Abilify as this is a low dose. Patient is not symptomatic with her low sodium level. I spoke with Dr. Jewell today who recommends that she stay on the salt tabs and have repeat labs in 1 week as her hyponatremia is considered chronic. Patient did have a bump in her white count yesterday to 16.1 however this looks to be an inflammatory response as she came back down to 9.9 today. She will continue on Bactrim until finished and follow-up with her primary care physician in 1 week after she her sodium recheck to the lab. Patient's son Mejia, updated on workup and d
[2024-04-05 08:04] LABS: Protein, Total 4.7 g/dL (6.1-8.1)
[2024-04-05 13:03] LABS: Kappa\\Lambda Light Chains 1.38 (0.26-1.65); Lambda Light Chain 23.6 mg/L (5.7-26.3)
[2024-04-05 16:03] LABS: Albumin 2.3 g/dL (3.8-4.8); Alpha 1 Globulin 0.3 g/dL (0.2-0.3); Alpha 2 Globulin 0.8 g/dL (0.5-0.9); Beta 1 Globulin 0.3 g/dL (0.4-0.6); Gamma Globulin 0.7 g/dL (0.8-1.7)
[2024-04-09 14:14] LABS: Creatinine, Random Urine 64 mg/dL (20-275); Total Protein/Creatinine Ratio 453 mg/g creat (24-184)
== END 2024-04-04 13:15 | DRG 699 ==
LOC: ANHED 12:16 → ANH3MEDSUR 14:30
PROVIDERS: Internal Medicine Nephrology; Nurse Practitioner Acute Care; Admitting Provider General Practice; Emergency Provider Emergency Medicine; PCP Family Medicine; Visit Provider General Practice
DX: T83.511A Infection and inflammatory reaction due to indwelling urethral catheter, initial encounter (principal); E46 Unspecified protein-calorie malnutrition; E87.1 Hypo-osmolality and hyponatremia; N17.9 Acute kidney failure, unspecified; R78.81 Bacteremia; N39.0 Urinary tract infection, site not specified; B96.1 Klebsiella pneumoniae [K. pneumoniae] as the cause of diseases classified elsewhere; T83.021A Displacement of indwelling urethral catheter, initial encounter; F03.90 Unspecified dementia, unspecified severity, without behavioral disturbance, psychotic disturbance, mood disturbance, and anxiety; M81.0 Age-related osteoporosis without current pathological fracture; I35.0 Nonrheumatic aortic (valve) stenosis; M19.90 Unspecified osteoarthritis, unspecified site; I65.23 Occlusion and stenosis of bilateral carotid arteries; I10 Essential (primary) hypertension; R31.9 Hematuria, unspecified; H40.9 Unspecified glaucoma; E78.5 Hyperlipidemia, unspecified; E03.9 Hypothyroidism, unspecified; H35.30 Unspecified macular degeneration; Z68.24 Body mass index [BMI] 24.0-24.9, adult; I69.392 Facial weakness following cerebral infarction; Z85.3 Personal history of malignant neoplasm of breast
CPT/HCPCS: 36415; 76775; 80048; 80053; 81001; 81050; 82533; 82570; 83735; 83883; 83930; 84145; 84155; 84156; 84165; 84166; 84300; 84443; 84540; 85025; 85055; 85610; 85730; 87040; 87077; 87086; 87088; 87186; 96125; 96361; 96365; 96366; 97110; 97116; 97162; 97165; 97530; 97535; 99285; A9270; G0378; J0696; J7030; J7040